=== PATIENT | female | born 1945 | race Caucasian/White ===

== ENCOUNTER → 2017-11-12 08:48 | Outpatient (CLI) | payer MEDICARE, OTHER, SELFPAY ==
[2017-11-12 10:32] LABS: Absolute Lymphocyte Count 1.52 X10^3/ul (0.83-4.51); Absolute Neutrophil Count 3.1 X10^3/uL (2.0-7.7); Basophil# 0.05 X10^3/uL; Basophil% 0.9 % (0-1); Eosinophil# 0.22 X10^3/uL; Eosinophils% 4.1 % (0-5); Hematocrit 39.1 % (37-47); Hemoglobin 12.8 g/dl (12.0-15.0); Lymphocyte # 1.52 X10^3/ul (4.0); Lymphocyte % 28.6 % (19-41); Mean Corp Hgb Conc 32.7 g/gl (32-36); Mean Corpuscular Hgb 29.4 pg (27.0-32.0); Mean Corpuscular Volume 89.7 fL (81-99); Mean Platelet Vol. 10.1 fl (6.2-12.0); Monocyte# 0.44 X10^3/uL; Monocyte% 8.3 % (0-10); Neutrophil # 3.08 X10^3/uL (2.7-7.7); Neutrophil % 57.9 % (47-70); Platelet Count 183 K/mm3 (150-450); RBC Distribution Width SD 45.9 fl (35.1-43.9); Red Blood Count 4.36 M/mm3 (4.2-5.4); White Blood Count 5.3 K/mm3 (4.4-11.0)
[2017-11-12 10:54] LABS: POSITIVE COUNT NO; POSITIVE DIFFERENTIAL NO; POSITIVE MORPHOLOGY NO
[2017-11-12 11:01] LABS: Anion Gap 7 (5-15); BUN 17 mg/dL (7-18); BUN/Creat Ratio 13.6 RATIO (10-20); Calcium,Total 8.6 mg/dL (8.5-10.1); Chloride 109 mmol/L (98-107); Creatinine, Serum 1.25 mg/dL (0.55-1.02); EST Glomerular Filtration Rate 45 mL/min (>60); Est Glom Filt Rate - Afr Amer 54 mL/min (>60); Glucose 118 mg/dL (74-106); Potassium 3.9 mmol/L (3.5-5.1); Sodium Level 142 mmol/L (136-145); Thyroid Stim Hormone (TSH) 5.02 uIU/mL (0.358-3.74)
== END ==
PROVIDERS: Family Provider Family Medicine; PCP Family Medicine; Visit Provider Family Medicine
DX: R53.83 Other fatigue (principal)
CPT/HCPCS: 36415; 80048; 84443; 85025

== ENCOUNTER → 2017-12-30 08:52 | Outpatient (CLI) | payer MEDICARE, OTHER, SELFPAY ==
[2017-12-30 10:28] LABS: Free T3 2.1 pg/mL (2.18-3.98); T4 Free Direct 0.95 ng/dL (0.76-1.46); Thyroid Stim Hormone (TSH) 3.39 uIU/mL (0.358-3.74)
== END ==
PROVIDERS: Family Provider Family Medicine; PCP Family Medicine; Visit Provider Family Medicine
DX: E03.9 Hypothyroidism, unspecified (principal)
CPT/HCPCS: 36415; 84439; 84443; 84481

== ENCOUNTER → 2018-06-02 09:10 | Outpatient (CLI) | payer BC, SELFPAY ==
[2018-06-02 12:22] LABS: Anion Gap 7 (5-15); BUN 22 mg/dL (7-18); BUN/Creat Ratio 19.3 RATIO (10-20); Calcium,Total 8.7 mg/dL (8.5-10.1); Chloride 107 mmol/L (98-107); Cholesterol 207 mg/dL (200); Creatinine, Serum 1.14 mg/dL (0.55-1.02); EST Glomerular Filtration Rate 50 mL/min (>60); Est Glom Filt Rate - Afr Amer 60 mL/min (>60); Free T3 2.7 pg/mL (2.18-3.98); Glucose 109 mg/dL (74-106); High Density Lipoprotein 38 mg/dL; Potassium 4.4 mmol/L (3.5-5.1); Sodium Level 141 mmol/L (136-145); T4 Total, Thyroxin 8.5 ug/dL (4.8-13.9); Thyroid Stim Hormone (TSH) 5.27 uIU/mL (0.358-3.74); Triglycerides 229 mg/dL; Very Low Density Lipoprotein 46 mg/dL (5-40)
== END ==
PROVIDERS: Family Provider Family Medicine; PCP Family Medicine; Visit Provider Family Medicine
DX: I10 Essential (primary) hypertension (principal); E03.9 Hypothyroidism, unspecified
CPT/HCPCS: 36415; 80048; 80061; 84436; 84443; 84481

== ENCOUNTER → 2018-12-01 | Outpatient (CLI) | payer BC, SELFPAY ==
[2018-12-01 10:45] LABS: Anion Gap 6 (5-15); BUN 14 mg/dL (7-18); BUN/Creat Ratio 15.3 RATIO (10-20); Calcium,Total 8.8 mg/dL (8.5-10.1); Chloride 110 mmol/L (98-107); Cholesterol 193 mg/dL (200); Creatinine, Serum 0.92 mg/dL (0.55-1.02); EST Glomerular Filtration Rate 64 mL/min (>60); Est Glom Filt Rate - Afr Amer 77 mL/min (>60); Glucose 100 mg/dL (74-106); High Density Lipoprotein 42 mg/dL; Sodium Level 141 mmol/L (136-145); Thyroid Stim Hormone (TSH) 4.71 uIU/mL (0.358-3.74); Triglycerides 198 mg/dL; Very Low Density Lipoprotein 40 mg/dL (5-40)
[2018-12-01 10:50] LABS: Vitamin D,25 Hydroxy 22.8 ng/mL (29.95-100.01)
== END | disposition home or self-care (01) ==
LOC: MFPLAB 09:17
PROVIDERS: Family Provider Family Medicine; PCP Family Medicine; Referring Provider Family Medicine; Visit Provider Family Medicine
DX: I10 Essential (primary) hypertension (principal); E03.9 Hypothyroidism, unspecified; E55.9 Vitamin D deficiency, unspecified
CPT/HCPCS: 36415; 80048; 80061; 82306; 84443

== ENCOUNTER → 2019-06-12 09:10 | Outpatient (CLI) | payer BC, SELFPAY ==
[2019-06-12 10:38] LABS: Anion Gap 4 (5-15); BUN 19 mg/dL (7-18); BUN/Creat Ratio 16.1 RATIO (10-20); Calcium,Total 8.7 mg/dL (8.5-10.1); Chloride 113 mmol/L (98-107); Cholesterol 218 mg/dL (200); Creatinine, Serum 1.18 mg/dL (0.55-1.02); EST Glomerular Filtration Rate 48 mL/min (>60); Est Glom Filt Rate - Afr Amer 58 mL/min (>60); Free T3 2.2 pg/mL (2.18-3.98); Glucose 102 mg/dL (74-106); High Density Lipoprotein 38 mg/dL; Potassium 4.3 mmol/L (3.5-5.1); Sodium Level 142 mmol/L (136-145); T4 Total, Thyroxin 6.7 ug/dL (4.8-13.9); Thyroid Stim Hormone (TSH) 6.17 uIU/mL (0.358-3.74); Triglycerides 259 mg/dL; Very Low Density Lipoprotein 52 mg/dL (5-40)
== END ==
PROVIDERS: Family Provider Family Medicine; PCP Family Medicine; Visit Provider Family Medicine
DX: E03.9 Hypothyroidism, unspecified (principal); I10 Essential (primary) hypertension
CPT/HCPCS: 36415; 80048; 80061; 84436; 84443; 84481

== ENCOUNTER → 2019-12-13 08:36 | Outpatient (CLI) | payer BC, SELFPAY ==
[2019-12-13 10:38] LABS: Anion Gap 7 (5-15); BUN 27 mg/dL (7-18); BUN/Creat Ratio 20.9 RATIO (10-20); Chloride 104 mmol/L (98-107); Cholesterol 230 mg/dL (200); Creatinine, Serum 1.29 mg/dL (0.55-1.02); EST Glomerular Filtration Rate 43 mL/min (>60); Est Glom Filt Rate - Afr Amer 52 mL/min (>60); Glucose 115 mg/dL (74-106); High Density Lipoprotein 39 mg/dL; Sodium Level 139 mmol/L (136-145); T4 Total, Thyroxin 7.5 ug/dL (4.8-13.9); Triglycerides 265 mg/dL; Very Low Density Lipoprotein 53 mg/dL (5-40)
[2019-12-13 19:59] LABS: Free T3 2.4 pg/mL (2.18-3.98)
== END ==
PROVIDERS: PCP Family Medicine; Visit Provider Family Medicine
DX: E03.9 Hypothyroidism, unspecified (principal); I10 Essential (primary) hypertension
CPT/HCPCS: 36415; 80048; 80061; 84436; 84443; 84480; 84481

== ENCOUNTER → 2020-03-21 09:51 | Outpatient (CLI) | payer BC, SELFPAY ==
[2020-03-21 13:16] LABS: Anion Gap 5 (5-15); BUN 28 mg/dL (7-18); Chloride 113 mmol/L (98-107); EST Glomerular Filtration Rate 39 mL/min (>60); Est Glom Filt Rate - Afr Amer 47 mL/min (>60); Glucose 102 mg/dL (74-106); Potassium 4.7 mmol/L (3.5-5.1); Sodium Level 142 mmol/L (136-145); Thyroid Stim Hormone (TSH) 3.83 uIU/mL (0.358-3.74)
== END ==
PROVIDERS: PCP Family Medicine; Referring Provider Family Medicine; Visit Provider Family Medicine
DX: I10 Essential (primary) hypertension (principal); E03.9 Hypothyroidism, unspecified
CPT/HCPCS: 36415; 80048; 84443

== ENCOUNTER → 2020-09-26 11:02 | Outpatient (CLI) | payer BC, SELFPAY ==
[2020-09-26 12:59] LABS: Anion Gap 5 (5-15); BUN 19 mg/dL (7-18); BUN/Creat Ratio 15.1 RATIO (10-20); Chloride 109 mmol/L (98-107); Cholesterol 226 mg/dL (200); Creatinine, Serum 1.26 mg/dL (0.55-1.02); EST Glomerular Filtration Rate 44 mL/min (>60); Est Glom Filt Rate - Afr Amer 53 mL/min (>60); Free T3 2.3 pg/mL (2.18-3.98); Glucose 97 mg/dL (74-106); High Density Lipoprotein 40 mg/dL; Potassium 4.4 mmol/L (3.5-5.1); Sodium Level 138 mmol/L (136-145); T4 Free Direct 0.94 ng/dL (0.76-1.46); Thyroid Stim Hormone (TSH) 4.35 uIU/mL (0.358-3.74); Triglycerides 259 mg/dL; Very Low Density Lipoprotein 52 mg/dL (5-40)
== END ==
LOC: MFPLAB 11:03
PROVIDERS: PCP Family Medicine; Referring Provider Family Medicine; Visit Provider Family Medicine
DX: I10 Essential (primary) hypertension (principal); E03.9 Hypothyroidism, unspecified
CPT/HCPCS: 36415; 80048; 80061; 84439; 84443; 84481

== ENCOUNTER 2021-06-22 12:42 | Inpatient (IN) | payer MEDICARE, SELFPAY ==
[2021-06-22] VITALS (12 sets, daily range): BP systolic 121–138; BP diastolic 76–109; PULSE 76–98; RESP 18–31; TEMP 35.5–37; O2SAT 90–95; BMI 29.9; BMI 31.4
--- NOTE | 2021-06-22 13:02 | EKG12_ITS ---
Test Reason : FATIGUE Blood Pressure : / mmHG Vent. Rate : 095 BPM Atrial Rate : 095 BPM P-R Int : 130 ms QRS Dur : 126 ms QT Int : 400 ms P-R-T Axes : 034 -25 029 degrees QTc Int : 502 ms Normal sinus rhythm Right bundle branch block Abnormal ECG Confirmed by JENNIFER PENA, PINKY ([id number]), book or script editor HANNAH HARRISON ([id number]) on 06/24/2021 10:05:40 AM Referred By: SARAI/ANGE Confirmed By:PINKY RODRIGUEZ MD
--- NOTE | 2021-06-22 13:03 | EX.ED.DYSGE1 ---
HPI History of Present Illness Chief Complaint: Fatigue Informant: patient Narrative Narrative: 76-year-old female arriving to the emergency department via EMS after her niece found her lying in bed. The family with whom she lives with told EMS that she has basically been in her room for about the past week. The niece came into town and has not been able to get a hold of her for about 3 days. When she found her today she was lying in bed confused and had stooled herself. She notes that she has been having vomiting and diarrhea. She notes a cough that has gotten better. She took a home Covid test that was positive this morning. Patient does note that while laying in bed and vomiting she was doing some choking and wonders if she may have aspirated. [facility] Medical History Hypertension Home Medications NK 06/22/21 [History Last Taken Unknown] Allergy/AdvReac Type Severity Reaction Status Date / Time Wmykmew-EXA-PaL Reductase Allergy Pain in Verified 12/06/15 09:34 Inhibitor joints [Ugnxdgv-Jqu-Fbs Reductase Inhibitor] Social History (Updated 06/22/21 @ 13:[address] Elliot Angeles DO) Smoking Status: Never smoker substance use type: does not use ROS ROS ED Constitutional Constitutional ED: Reports fever(s); Denies chills or weight loss Eyes Eyes: Denies change in vision or diplopia ENT ENT ED: Denies ear pain, rhinorrhea or sore throat Cardiovascular Cardiovascular: Denies chest pain, orthopnea, palpitations or racing heartbeat Respiratory/Chest Respiratory/Chest: Reports cough; Denies dyspnea or orthopnea Gastrointestinal Gastrointestinal: Reports diarrhea, nausea and vomiting; Denies abdominal pain Genitourinary Genitourinary ED: Denies dysuria, hematuria or urinary frequency Musculoskeletal Musculoskeletal: Reports myalgias; Denies arthralgias Integumentary Denies abscess or rash Neurologic Neurologic: Denies headache(s) or weakness Psychiatric Psychiatric: Denies anxiety, depression, suicidal ideation or suicidal thoughts Endocrine Endocrinology: Denies polydipsia, polyphagia or polyuria Allergic/Immunologic Allergic/Immunologic ED: Denies mouth swelling, tongue swelling or urticaria EXAM Physical Exam Const Vital Signs: 06/22/21 12:43 06/22/21 12:49 06/22/21 14:40 Temperature 95.9 F L 96.8 F L 97.7 F L Temperature Source Temporal Temporal Temporal Pulse Rate 98 97 96 Respiratory Rate 28 H 31 H 26 H Respiratory Effort Normal Non-Labored Respiratory Pattern Normal Blood Pressure 122/94 H 122/94 H 138/109 H Blood Pressure Mean 103 103 118 Pulse Ox 95 90 Oxygen Delivery Method Room Air Room Air Nasal Cannula Oxygen Flow Rate (L/min) 2 06/22/21 14:50 Temperature Temperature Source Pulse Rate 76 Respiratory Rate 20 H Respiratory Effort Respiratory Pattern Blood Pressure 138/109 H Blood Pressure Mean 118 Pulse Ox 93 Oxygen Delivery Method Nasal Cannula Oxygen Flow Rate (L/min) 4 Positive well nourished and well developed General Appearance ED: well developed HEENT Reports normocephalic, head/scalp atraumatic and moist mucous membranes Eyes PERRL and EOMs intact bilaterally Neck no lymphadenopathy, supple and no JVD Resp normal respiratory effort and clear to auscultation bilaterally Cardio regular rate, regular rhythm and no murmurs GI normal to inspection, nondistended, normoactive bowel sounds and non-tender Palpation: soft Back/Spine no CVA tenderness and normal ROM Extremity normal to inspection General Extremety ED: Negative for edema General Extremity: Negative for edema Neuro oriented x3 and CN's II-XII intact bilaterally Sensorium / Orientation: alert Motor Exam: strength 5/5 throughout Psych mental status grossly normal Mood & Affect: Negative for depressed or tearful Skin no rashes or lesions noted and no wounds MDM MDM MDM Narrative Medical decision making narrative: Patient was placed on oxygen 2 to saturations into the mid 80s. White count 10.6. BUN of 51 with a creatinine of 1.73. Lactic acid is elevated at 3.7. My interpretation of the chest x-ray is it is a left lower lobe infiltrate. CTA of the chest was obtained. Finest admit the patient into the hospital. Lab Data Attestation: I reviewed the patient's lab results. Labs: Laboratory Results - last 24 hr 06/22/21 06/22/21 06/22/21 12:30 12:30 13:20 WBC 10.6 RBC 5.40 Hgb 16.0 H Hct 48.8 H MCV 90.4 MCH 29.6 MCHC 32.8 RDW Std Deviation 48.6 H RDW Coeff of Kimberlee 14.6 Plt Count 278 MPV 10.9 Immature Gran % (Auto) 0.700 Neut % (Auto) 79.9 H Lymph % (Auto) 14.1 L [place] % (Auto) 4.8 Eos % (Auto) 0.2 Baso % (Auto) 0.3 Absolute Neuts (auto) 8.4 H Absolute Lymphs (auto) 1.49 Nucleated RBC % 0 PT 14.4 INR 1.2 APTT 25.0 Sodium 142 Potassium 4.0 Chloride 109 H Carbon Dioxide 21.0 Anion Gap 12 BUN 51 H Creatinine 1.73 H Estim Creat Clear Calc 29.90 Est GFR (MDRD) Af Amer 37 L Est GFR (MDRD) Non-Af 31 L BUN/Creatinine Ratio 29.5 H Glucose 186 H Lactic Acid Calcium 9.1 Total Bilirubin 1.00 AST 75 H ALT 42 Alkaline Phosphatase 112 Troponin I High Sens 22 Total Protein 8.9 H Albumin 3.0 L Globulin 5.9 H Albumin/Globulin Ratio 0.5 L Lipase 789 H 06/22/21 13:20 WBC RBC Hgb Hct MCV MCH MCHC RDW Std Deviation RDW Coeff of Kimberlee Plt Count MPV Immature Gran % (Auto) Neut % (Auto) Lymph % (Auto) [place] % (Auto) Eos % (Auto) Baso % (Auto) Absolute Neuts (auto) Absolute Lymphs (auto) Nucleated RBC % PT INR APTT Sodium Potassium Chloride Carbon Dioxide Anion Gap BUN Creatinine Estim Creat Clear Calc Est GFR (MDRD) Af Amer Est GFR (MDRD) Non-Af BUN/Creatinine Ratio Glucose Lactic Acid 3.7 H* Calcium Total Bilirubin AST ALT Alkaline Phosphatase Troponin I High Sens Total Protein Albumin Globulin Albumin/Globulin Ratio Lipase Radiography Diagnostic Testing: Clinical Impression(s) from Imaging Studies Chest X-Ray 06/22/21 13:27 IMPRESSION: 1. Shallow inspiration and crowding of bronchovascular markings. 2. Early interstitial infiltrate at the LEFT lung base. Early atypical pneumonia is a consideration. Remaining lung zones clear. 3. No congestive failure Electronically Signed: Everton Benoit MD at 14:36 EST Tel , Service support , EKG Initial EKG: Attestation: I personally reviewed and interpreted this EKG as follows: Comments: Normal sinus rhythm with a right bundle branch block and a ventricular rate of 95 bpm Discharge Plan Dx/Rx/DC Orders Clinical Impression: COVID-19, Acute hypoxemic respiratory failure due to COVID-19 Disposition Disposition: Acute Care Hospital [facility]
[2021-06-22 13:18] LABS: Absolute Lymphocyte Count 1.49 X10^3/uL (0.83-4.51); Absolute Neutrophil Count 8.4 X10^3/uL (2.0-7.7); Basophil# 0.03 X10^3/uL; Basophil% 0.3 % (0-1); Eosinophil# 0.02 X10^3/uL; Eosinophils% 0.2 % (0-5); Hematocrit 48.8 % (37-47); Lymphocyte # 1.49 X10^3/ul (0.83-4.51); Lymphocyte % 14.1 % (19-41); Mean Corp Hgb Conc 32.8 g/dL (32-36); Mean Corpuscular Hgb 29.6 pg (27.0-32.0); Mean Corpuscular Volume 90.4 fL (81-99); Mean Platelet Vol. 10.9 fl (6.2-12.0); Monocyte# 0.51 X10^3/uL; Monocyte% 4.8 % (0-10); NRBC Flagged by Analyzer 0 % (0-5); Neutrophil # 8.43 X10^3/uL (2.7-7.7); Neutrophil % 79.9 % (47-70); Platelet Count 278 K/mm3 (150-450); RBC Distribution Width CV 14.6 % (11.6-14.6); RBC Distribution Width SD 48.6 fl (35.1-43.9); White Blood Count 10.6 K/mm3 (4.4-11.0)
[2021-06-22] MEDS: 0.9% Normal Saline 1,000 ML 1000 ML IV (13:27)
--- NOTE | 2021-06-22 13:27 | RAD_ITS ---
INDICATION: covid 19 EXAMINATION/TECHNIQUE: X-RAY - XR Chest 1 View COMPARISON: 11/06/2011 FINDINGS: LIFE-SUPPORT AND LINES: 1. None. 2. No pneumothorax or HEART AND VESSELS: Cardiac silhouette is upper limit of normal, tortuous aorta is noted. No evidence of congestive failure. LUNGS AND PLEURAL SPACES: Shallow aspiration basilar atelectasis however focal area of early infiltrate at the LEFT lung base. No consolidation, no effusion. No pulmonary mass is noted. MEDIASTINUM AND HILAR REGIONS: No masses adenopathy noted. No areas of calcification. Visualized upper airway is normal in position. BONY ELEMENTS: Postop change of prior LEFT shoulder arthroplasty, healed LEFT rib fractures are noted. RAD/Chest 1 View (Portable) IMPRESSION: 1. Shallow inspiration and crowding of bronchovascular markings. 2. Early interstitial infiltrate at the LEFT lung base. Early atypical pneumonia is a consideration. Remaining lung zones clear. 3. No congestive failure Electronically Signed: Everton Benoit MD at 14:36 EST Tel , Service support ,
[2021-06-22 13:42] LABS: ALB/GLOB Ratio 0.5 RATIO (0.9-2.4); AST(SGOT) 75 U/L (15-37); Alanine Aminotransfer ALT/SGPT 42 U/L (13-56); Alkaline Phosphatase 112 U/L (45-117); Anion Gap 12 (5-15); BUN 51 mg/dL (7-18); BUN/Creat Ratio 29.5 RATIO (10-20); Calcium,Total 9.1 mg/dL (8.5-10.1); Chloride 109 mmol/L (98-107); Creatinine, Serum 1.73 mg/dL (0.55-1.02); EST Glomerular Filtration Rate 31 mL/min (>60); Est Glom Filt Rate - Afr Amer 37 mL/min (>60); Globulin 5.9 g/dL (2.2-4.2); Glucose 186 mg/dL (74-106); Lipase 789 U/L (73-393); Protein, Total 8.9 g/dL (6.4-8.2); Sodium Level 142 mmol/L (136-145); Troponin-I HS 22 pg/mL (3.0-54.0)
[2021-06-22 13:57] LABS: International Normalized Ratio 1.2; Prothrombin Time (Protime)PT. 14.4 SECONDS (11.7-14.9)
[2021-06-22 14:00] LABS: Lactic Acid 3.7 mmol/L (0.4-1.9)
--- NOTE | 2021-06-22 14:40 | CT_ITS ---
STUDY: CTA CHEST REASON FOR EXAM: Female, 76 years old. Covid 19 hypoxia RADIATION DOSAGE (If Supplied By Facility): CTDIvol = ( 8.43 ) mGy, DLP = ( 392.61 ) mGycm TECHNIQUE: The examination was performed with the intravenous administration of IV 100mL Isovue-370. Post-processing of the angiographic images was performed, with multiplanar reformation and 3D reconstruction. Individualized dose optimization techniques were used for this CT. COMPARISON: None. FINDINGS: Lines and tubes: 1. No life-support noted. CTA: PULMONARY ARTERIES: There is normal configuration and contrast opacification of pulmonary outflow tract, main pulmonary arteries, segmental and intersegmental pulmonary arteries bilaterally without evidence of intraluminal filling defects. AORTIC ARCH: The aortic arch and descending aorta have normal configuration. The ascending aorta measures approximately 4.6 cm in maximal transverse dimension no evidence of dissection. HEART: Cardiac contour is normal. No evidence pericardial effusion. CT CHEST: LUNGS: [Extensive diffuse bilateral interstitial and groundglass infiltrate/pneumonia greatest at the lung bases. No effusion.. PLEURAL SPACES: Unremarkable, no effusion or pneumothorax.. MEDIASTINUM AND LYMPH NODES: Unremarkable. No significant adenopathy. BONES: Unremarkable ABDOMEN: The gallbladder is distended, no radiodense calcifications noted. Other: None IMPRESSIONS: 1. No CTA evidence of pulmonary embolism. 2. Mild aneurysmal dilatation of the ascending aorta with maximal transverse dimension of 4.6 cm. No dissection or filling defects noted. Normal appearance of the origin the great vessels. 3. Normal CT appearance of the heart and pericardium. 4. Extensive diffuse multi lobar interstitial and groundglass infiltrate/atypical pneumonia. Electronically Signed: Everton Benoit MD at 15:57 EST Tel , Service support , CT/CTA Chest W/WO Contrast
--- NOTE | 2021-06-22 15:53 | HP.PCM.HOS_ITS ---
HPI - General HPI Narrative JENI AVALOS, is a 76 F who presents with fatigue. Patient lives at home with family patient sick for about a week and confined to her room for the well. The niece came in town and not been able get a hold about 3 days. They went to her room and patient was confused and covered in feces. Was asked to the patient why no one saw to get her on patient was confirmed to be positive for COVID-19 and sent emergency room. Patient wasn't confirmed COVID-19 positive patient increasing oxygen requirements and was up to 6 L and satting patient had CT angiogram of the chest that showed diffuse bilateral groundglass opacities. Is concerned the patient may have a developing pneumonia as patient was ordered [facility]. [facility] Medical History Hypertension Home Medications NK 06/22/21 [History Last Taken Unknown] Allergy/AdvReac Type Severity Reaction Status Date / Time Hebqoed-ZZV-AnL Reductase Allergy Pain in Verified 12/06/15 09:34 Inhibitor joints [Nhlnewn-Bor-Njd Reductase Inhibitor] Social History Smoking Status: Never smoker substance use type: does not use ROS ROS Narrative Weak, fatigue. All review of systems were negative except as mentioned above in the history of present illness and the other review of systems. Vital Signs Vital Signs Vital Signs: 06/22/21 12:43 06/22/21 12:49 06/22/21 14:40 Temperature 35.5 C L 36.0 C L 36.5 C L Temperature Source Temporal Temporal Temporal Pulse Rate 98 97 96 Respiratory Rate 28 H 31 H 26 H Respiratory Effort Normal Non-Labored Respiratory Pattern Normal Blood Pressure 122/94 H 122/94 H 138/109 H Blood Pressure Mean 103 103 118 Pulse Ox 95 90 Oxygen Delivery Method Room Air Room Air Nasal Cannula Oxygen Flow Rate (L/min) 2 06/22/21 14:50 06/22/21 15:47 Temperature 36.1 C L Temperature Source Temporal Pulse Rate 76 93 Respiratory Rate 20 H 20 H Respiratory Effort Respiratory Pattern Blood Pressure 138/109 H 124/89 H Blood Pressure Mean 118 100 Pulse Ox 93 90 Oxygen Delivery Method Nasal Cannula Nasal Cannula Oxygen Flow Rate (L/min) 4 6 Weight Weight: 67.4 kg Body Mass Index (BMI) 29.9 Physical Exam Const Constitutional Narrative: Appears older than stated age. Patient was having a lot of discomfort when there performing a straight catheterization. HEENT normocephalic Resp normal respiratory effort Resp Narrative: Coarse breath sounds bilaterally Cardio regular rate, regular rhythm, S1 normal heart sound and S2 normal heart sound GI normal to inspection, nondistended, normoactive bowel sounds, soft to palpation, non-tender and non-distended Extremity normal to inspection Skin no rashes or lesions noted and no wounds Neuro oriented x3 Sensorium / Orientation: awake and alert Results Lab / Micro Data Attestation: I reviewed the patient's lab results. Result Diagrams: 06/22/21 12:30 06/22/21 12:30 Labs: Laboratory Results - last 24 hr 06/22/21 12:30: WBC 10.6, RBC 5.40, Hgb 16.0 H, Hct 48.8 H, MCV 90.4, MCH 29.6, MCHC 32.8, RDW Std Deviation 48.6 H, RDW Coeff of Kimberlee 14.6, Plt Count 278, MPV 10.9, Immature Gran % (Auto) 0.700, Neut % (Auto) 79.9 H, Lymph % (Auto) 14.1 L, Elliott % (Auto) 4.8, Eos % (Auto) 0.2, Baso % (Auto) 0.3, Absolute Neuts (auto) 8.4 H, Absolute Lymphs (auto) 1.49, Nucleated RBC % 0 06/22/21 12:30: Sodium 142, Potassium 4.0, Chloride 109 H, Carbon Dioxide 21.0, Anion Gap 12, BUN 51 H, Creatinine 1.73 H, Estim Creat Clear Calc 29.90, Est GFR (MDRD) Af Amer 37 L, Est GFR (MDRD) Non-Af 31 L, BUN/Creatinine Ratio 29.5 H, Glucose 186 H, Calcium 9.1, Total Bilirubin 1.00, AST 75 H, ALT 42, Alkaline Phosphatase 112, Troponin I High Sens 22, Total Protein 8.9 H, Albumin 3.0 L, Globulin 5.9 H, Albumin/Globulin Ratio 0.5 L, Lipase 789 H 06/22/21 13:20: PT 14.4, INR 1.2, APTT 25.0 06/22/21 13:20: Lactic Acid 3.7 H* Micro: Microbiology 06/22/21 13:18 Nasal Secretion SARS-CoV-2 Antigen (Rapid) - Final SARS-CoV-2 (COVID 19) Radiology Impression Chest X-Ray 06/22/21 13:27 IMPRESSION: 1. Shallow inspiration and crowding of bronchovascular markings. 2. Early interstitial infiltrate at the LEFT lung base. Early atypical pneumonia is a consideration. Remaining lung zones clear. 3. No congestive failure Electronically Signed: Everton Benoit MD at 14:36 EST Tel , Service support , Assessment & Plan Assessment/Plan (1) Acute hypoxemic respiratory failure due to COVID-19: (2) COVID-19: (3) HARLEY (acute kidney injury): PLAN: 1. Acute hypoxic respiratory failure Secondary to COVID-19 Patient already on 6 L and has marginal pulse ox Wean if tolerated but very concerning patient may continue to deteriorate. CAT scan consistent with COVID-19 pneumonitis. Ordered Unasyn in the emergency room but would not continue as this appears more consistent with COVID-19. 2. Acute COVID-19 pneumonia Onset was June 15, patient will need to quarantine through July 05 Dexamethasone. Not a candidate for remdesivir given her acute kidney injury No indication for baricitinib at this point time but she could deteriorate or that may an option Patient is unvaccinated. Stated that she did not believe in it. Asked if she believes in vaccines now and she responds yes. It was explained to her given her unvaccinated state that she could potentially deteriorate despite treatments. 3. Acute kidney injury May be a component of prerenal as patient was basically confined to her room for about the past week Hold off on IV fluids given her respiratory status at this time. No need for renal replacement therapy 4. VTE prophylaxis: High risk. Enoxaparin. 5. CODE STATUS: Addressed with patient. Asked patient if she would want to be intubated if it was life or . She was unsure at first but later towards either or intubation what she chooses. Patient would choose intubation. Therefore she is full CODE STATUS. I did inform her that there is no imminent danger of intubation at this time but that certainly could, and arise if her respiratory status continues to decline. Charges/Coding Visit Charges Inpatient E&M: 24863 Init Hosp L3
[2021-06-22 15:59] LABS: Bacteria 0 SEEN /hpf (None Seen); Mucous, Urine 0 SEEN /hpf (<or=2+); Red Blood Cells-Urine 0 SEEN /hpf (0-5)
[2021-06-22 16:02] LABS: Color, Urine Yellow (Yellow); Glucose, Dipstick Normal (Normal); Ketone-Dipstick 5 mg/dl (Negative); Leukocyte Esterase-Dipstick Negative /ul (Negative); Nitrite-Dipstick Negative (Negative); Occult Blood-Urine 50 /ul (Negative); Protein-Dipstick 100 mg/dl (Negative); Specific Gravity, Urine 1.015 (1.002-1.030); Urine Bilirubin Dipstick Negative (Negative); Urine Clarity Clear (Clear); Urine Urobilinogen Normal (Normal); Urine pH 6.5 (5.0 - 8.0)
[2021-06-22 16:14] LABS: Squamous Epithelial Cells - UA 0-5 SEEN /hpf (5-10); White Blood Cells 0-5 SEEN /hpf (0-5)
--- NOTE | 2021-06-22 17:21 | PCS.PANDOC ---
PANDEMIC DOCUMENTATION INITIATED: Date: 02/10/2021 Time: 190
[2021-06-22 17:30] LABS: Reflex Lactate? Y
[2021-06-22] MEDS: 0.9% Saline Lock 10 ML Syringe IV (18:42)
[2021-06-22] MEDS: dexAMETHasone 10 MG/ML Vial 6 MG IV (18:42)
[2021-06-22] MEDS: Menthol/Lanolin/Calamine/Znox 113 GM Tube 1 APPLIC TOPICAL (20:39)
[2021-06-22] MEDS: Nystatin Ointment 1 APPLIC TOPICAL (20:39)
[2021-06-23] VITALS (13 sets, daily range): BP systolic 126–138; BP diastolic 70–87; PULSE 76–86; RESP 20–24; TEMP 36.1–37.2; O2SAT 83–97
[2021-06-23] MEDS: Menthol/Lanolin/Calamine/Znox 113 GM Tube 1 APPLIC TOPICAL ×3 (03:12→23:04)
[2021-06-23 06:55] LABS: Absolute Lymphocyte Count 0.94 X10^3/uL (0.83-4.51); Absolute Neutrophil Count 7.1 X10^3/uL (2.0-7.7); Basophil# 0.01 X10^3/uL; Basophil% 0.1 % (0-1); Hematocrit 44.1 % (37-47); Hemoglobin 14.3 g/dL (12.0-15.0); Lymphocyte # 0.94 X10^3/ul (0.83-4.51); Lymphocyte % 11.3 % (19-41); Mean Corp Hgb Conc 32.4 g/dL (32-36); Mean Corpuscular Volume 89.5 fL (81-99); Mean Platelet Vol. 10.4 fl (6.2-12.0); Monocyte# 0.27 X10^3/uL; Monocyte% 3.2 % (0-10); NRBC Flagged by Analyzer 0 % (0-5); Neutrophil # 7.05 X10^3/uL (2.7-7.7); Neutrophil % 84.6 % (47-70); Platelet Count 226 K/mm3 (150-450); RBC Distribution Width CV 14.6 % (11.6-14.6); RBC Distribution Width SD 48.2 fl (35.1-43.9); Red Blood Count 4.93 M/mm3 (4.2-5.4); White Blood Count 8.3 K/mm3 (4.4-11.0)
[2021-06-23 07:20] LABS: ALB/GLOB Ratio 0.5 RATIO (0.9-2.4); AST(SGOT) 45 U/L (15-37); Alanine Aminotransfer ALT/SGPT 30 U/L (13-56); Albumin, Serum 2.5 g/dL (3.2-5.0); Alkaline Phosphatase 94 U/L (45-117); Anion Gap 8 (5-15); BUN 41 mg/dL (7-18); BUN/Creat Ratio 31.1 RATIO (10-20); Calcium,Total 8.7 mg/dL (8.5-10.1); Chloride 112 mmol/L (98-107); Creatinine, Serum 1.32 mg/dL (0.55-1.02); EST Glomerular Filtration Rate 42 mL/min (>60); Est Glom Filt Rate - Afr Amer 50 mL/min (>60); Estimated Creatinine Clearance 40.98 ml/min; Globulin 5.2 g/dL (2.2-4.2); Glucose 137 mg/dL (74-106); Potassium 4.3 mmol/L (3.5-5.1); Protein, Total 7.7 g/dL (6.4-8.2); Sodium Level 144 mmol/L (136-145)
[2021-06-23] MEDS: Enoxaparin 30 MG/0.3 ML Syringe SC (09:40)
[2021-06-23] MEDS: dexAMETHasone 10 MG/ML Vial 6 MG IV (09:41)
[2021-06-23] MEDS: Nystatin Ointment 1 APPLIC TOPICAL ×2 (09:41→23:03)
--- NOTE | 2021-06-23 10:20 | CASEMGMT ---
SONIA MAYER Assessment: Face to Face with pt for initial transition planning/care coordination assessment. SONIA MAYER introduced self and role at [facility], pt voices understanding and consents to assessment. Pt is A/O x4 and answers all questions appropriately at this time. Pt lying in bed with O2 on in no distress. Care providers, pharmacy, and demographics verified/updated. Admitting Dx: COVID 19 PCP:Mary Ellen Specialists: Pt denies. [facility]erred [facility]acy: [facility] Insurance: Erica PALMA Prescription Benefit: yes LW/HPOA: Pt denies having a LW/DPOA and denies need for info regarding AD. LNOK: Nia Meza, niece; Heri Lemon, son Living Arrangements: Pt lives with treat grandson, his and their 3 children. Pt reports she was I in ADL's prior to hospitalization and denies concerns at home. She states her children are obnoxious. Transportation: Pt drives self and denies concerns with transportation. DME/HHC/SNF: Pt has a chair lift from the main level to the upstairs, walk in shower and a cane and walker that she does not use. Pt denies hx of HHC or SNF stays. Pt states she was tested at [facility]. She states she is not aware of any family members who have COVID. She can quarantine from them using separate bedrooms and bathrooms. Pt states she does have family (her niece, not who she lives with) who can provide her with groceries and supplies while in quarantine. Provided pt with a local in network list of DME companies should she need O2 upon dc, pt denies preference. Pt states no concerns with going home at time of dc. Pt states no further concerns/needs. CM to follow. Advised pt to ask CM if any further question/concerns/needs arise, voices understanding. Pt Goal: Home Plan: Home
--- NOTE | 2021-06-23 15:47 | NURSING ---
PT HAS VISITOR IN ROOM. NOTED SINCE VISITOR IS HERE PT HAS HAD TO HAVE OXYGEN INCREASE DUE TO UNABLE TO MAINTAIN OXYGEN STATUS WITH CONVERSATION. SHE WAS PLACED ON 15 L HIGH RASHAD AND NOW IS ON AIRVO.
--- NOTE | 2021-06-23 19:29 | PCM.PN.HOSP ---
Subjective Subjective Patient was seen and examined today, she is on high flow oxygen at this time, I asked her whether she would want to be placed on a ventilator if needed, she answered yes. Patient denies any shortness of breath at rest, she denies any fevers or chills. Objective Data Objective Data Vital Signs: Vital Signs Temp Pulse Resp BP Pulse Ox 98.6 F 83 20 H 134/70 H 97 06/23/21 15:20 06/23/21 15:20 06/23/21 15:22 06/23/21 15:20 06/23/21 15:20 Oxygen Flow Rate (L/min) 15 Oxygen Delivery Method High Flow Weight: 70.488 kg Body Mass Index (BMI) 31.4 Intake & Output: Intake and Output for Last 24 Hours 06/21/21 06/22/21 06/23/21 23:59 23:59 23:59 Intake Total 1262 / 1262 950 / 950 Balance 1262 / 1262 950 / 950 Lab / Micro Data Result Diagrams: 06/23/21 06:16 06/23/21 06:14 Labs: Laboratory Results - last 24 hr 06/23/21 06:14: Sodium 144, Potassium 4.3, Chloride 112 H, Carbon Dioxide 24.0, Anion Gap 8, BUN 41 H, Creatinine 1.32 H, Estim Creat Clear Calc 40.98, Est GFR (MDRD) Af Amer 50 L, Est GFR (MDRD) Non-Af 42 L, BUN/Creatinine Ratio 31.1 H, Glucose 137 H, Calcium 8.7, Total Bilirubin 0.70, AST 45 H, ALT 30, Alkaline Phosphatase 94, Total Protein 7.7, Albumin 2.5 L, Globulin 5.2 H, Albumin/Globulin Ratio 0.5 L 06/23/21 06:16: WBC 8.3, RBC 4.93, Hgb 14.3, Hct 44.1, MCV 89.5, MCH 29.0, MCHC 32.4, RDW Std Deviation 48.2 H, RDW Coeff of Kimberlee 14.6, Plt Count 226, MPV 10.4, Immature Gran % (Auto) 0.800, Neut % (Auto) 84.6 H, Lymph % (Auto) 11.3 L, [place] % (Auto) 3.2, Eos % (Auto) 0.0, Baso % (Auto) 0.1, Absolute Neuts (auto) 7.1, Absolute Lymphs (auto) 0.94, Nucleated RBC % 0 Micro: Microbiology 06/22/21 13:18 Nasal Secretion SARS-CoV-2 Antigen (Rapid) - Final SARS-CoV-2 (COVID 19) Physical Exam Const alert, oriented x3, no apparent distress and healthy appearing General Appearance: cooperative, well kempt and well developed Orientation / Consciousness: awake, oriented to person, oriented to place and oriented to time HEENT normocephalic, head/scalp atraumatic and moist oral mucous membranes Head and Scalp: normocephalic Eyes PERRL, EOMs intact bilaterally and conjunctivae normal Neck nuchal rigidity, supple, no JVD, thyroid normal and no carotid bruits General: trachea midline Resp normal respiratory effort, no retractions, no use of accessory muscles and clear to auscultation bilaterally Auscultation: Negative for rales, rhonchi or wheezes Cardio regular rate, regular rhythm, S1 normal heart sound, S2 normal heart sound, no murmurs, no rub and no gallops GI normal to inspection, nondistended, normoactive bowel sounds, soft to palpation, non-tender and non-distended Extremity no clubbing, cyanosis or edema Skin no rashes or lesions noted, skin turgor normal and no jaundice General Skin Exam: no breakdown Neuro oriented x3, CN's II-XII intact bilaterally, no focal motor deficits and no sensory deficits noted Sensorium / Orientation: awake and alert Speech: speech normal Psych thought process normal and affect normal Assessment & Plan Assessment/Plan (1) COVID-19: PLAN: 1. COVID-19 pneumonia-patient is currently on dexamethasone, patient's GFR at this time is 42, I believe she would be a candidate for remdesivir, nursing will discuss this with the patient and I will order the remdesivir, if the patient declines remdesivir, it will be discontinued by nursing. Labs will be monitored. #2 acute hypoxic respiratory failure-pulse ox will be monitored #3 acute kidney injury-patient appears to have a backdrop of chronic kidney disease stage IIIb #4 acute debility secondary to COVID-19 pneumonia Charges/Coding Visit Charges Inpatient E&M: 36235 Subs Hosp L2
[2021-06-23] MEDS: 0.9% Saline Lock 10 ML Syringe IV (23:04)
[2021-06-24] VITALS (22 sets, daily range): BP systolic 108–155; BP diastolic 68–110; PULSE 68–84; RESP 11–29; TEMP 36.2–36.4; O2SAT 73–100
[2021-06-24] MEDS: Menthol/Lanolin/Calamine/Znox 113 GM Tube 1 APPLIC TOPICAL ×2 (03:49→14:06)
[2021-06-24] MEDS: dexAMETHasone 10 MG/ML Vial 6 MG IV (09:30)
[2021-06-24] MEDS: Nystatin Ointment 1 APPLIC TOPICAL (09:31)
[2021-06-24] MEDS: 0.9% Saline Lock 10 ML Syringe IV (09:31)
[2021-06-24] MEDS: Enoxaparin 30 MG/0.3 ML Syringe SC (09:31)
[2021-06-24 10:20] LABS: Hematocrit 40.5 % (37-47); Hemoglobin 14.2 g/dL (12.0-15.0); Mean Corp Hgb Conc 35.1 g/dL (32-36); Mean Corpuscular Hgb 29.9 pg (27.0-32.0); Mean Corpuscular Volume 85.3 fL (81-99); Mean Platelet Vol. 10.5 fl (6.2-12.0); Platelet Count 231 K/mm3 (150-450); RBC Distribution Width CV 14.1 % (11.6-14.6); RBC Distribution Width SD 43.9 fl (35.1-43.9); Red Blood Count 4.75 M/mm3 (4.2-5.4); White Blood Count 14.5 K/mm3 (4.4-11.0)
[2021-06-24 10:53] LABS: ALB/GLOB Ratio 0.5 RATIO (0.9-2.4); AST(SGOT) 54 U/L (15-37); Alanine Aminotransfer ALT/SGPT 32 U/L (13-56); Albumin, Serum 2.4 g/dL (3.2-5.0); Alkaline Phosphatase 99 U/L (45-117); Anion Gap 13 (5-15); BUN 44 mg/dL (7-18); BUN/Creat Ratio 40.4 RATIO (10-20); Calcium,Total 8.7 mg/dL (8.5-10.1); Chloride 112 mmol/L (98-107); Creatinine, Serum 1.09 mg/dL (0.55-1.02); EST Glomerular Filtration Rate 52 mL/min (>60); Est Glom Filt Rate - Afr Amer 63 mL/min (>60); Estimated Creatinine Clearance 49.62 ml/min; Globulin 4.6 g/dL (2.2-4.2); Glucose 122 mg/dL (74-106); Potassium 4.5 mmol/L (3.5-5.1); Sodium Level 145 mmol/L (136-145)
--- NOTE | 2021-06-24 14:23 | NURSING ---
assisted pt with calling her son migdalia
--- NOTE | 2021-06-24 16:38 | NURSING ---
called report to icu pt transferred to bed [address] penaloza talked with son before transfer
--- NOTE | 2021-06-24 17:33 | PN.HOSP_ITS ---
Subjective Subjective Patient was seen and examined today, she appeared confused at times, she required 100% oxygen to maintain her pulse ox initially today but then this afternoon, she was not able to maintain her oxygen sat above 80% on 100%. At that time, I contacted her son for direction concerning her CODE STATUS, her son was not able at this time to decide whether to make her a DNR and so, it was decided the patient would be transferred to ICU for close observation and possible intubation if necessary. Son was aware of this, he was making arrangements to come up here from [place] to see her. I tried to emphasize to her son that if the patient wild up on a ventilator, the prognosis would be very grim and that it could mean that she would be on the ventilator for protracted length of time with possible permanent debility if she survived. Objective Data Objective Data Vital Signs: Vital Signs Temp Pulse Resp BP Pulse Ox 97.1 F L 80 18 136/92 H 83 06/24/21 13:56 06/24/21 17:31 06/24/21 13:56 06/24/21 13:56 06/24/21 16:15 Oxygen Flow Rate (L/min) 60 Oxygen Delivery Method Airvo Weight: 70.488 kg Body Mass Index (BMI) 31.4 Intake & Output: Intake and Output for Last 24 Hours 06/22/21 06/23/21 06/24/21 23:59 23:59 23:59 Intake Total 1262 / 1262 950 / 950 300 / 300 Output Total 500 / 500 Balance 1262 / 1262 950 / 950 -200 / -200 Lab / Micro Data Result Diagrams: 06/24/21 10:00 06/24/21 10:00 Labs: Laboratory Results - last 24 hr 06/24/21 10:00: WBC 14.5 H, RBC 4.75, Hgb 14.2, Hct 40.5, MCV 85.3, MCH 29.9, MCHC 35.1 D, RDW Std Deviation 43.9, RDW Coeff of Kimberlee 14.1, Plt Count 231, MPV 10.5 06/24/21 10:00: Sodium 145, Potassium 4.5, Chloride 112 H, Carbon Dioxide 20.0 L , Anion Gap 13, BUN 44 H, Creatinine 1.09 H, Estim Creat Clear Calc 49.62, Est GFR (MDRD) Af Amer 63, Est GFR (MDRD) Non-Af 52 L, BUN/Creatinine Ratio 40.4 H, Glucose 122 H, Calcium 8.7, Total Bilirubin 0.60, AST 54 H, ALT 32, Alkaline Phosphatase 99, Total Protein 7.0, Albumin 2.4 L, Globulin 4.6 H, Albumin/Globulin Ratio 0.5 L Micro: Microbiology 06/22/21 13:18 Nasal Secretion SARS-CoV-2 Antigen (Rapid) - Final SARS-CoV-2 (COVID 19) Physical Exam Const alert Constitutional Narrative: Patient appears older than her stated age General Appearance: cooperative, well kempt and well developed Orientation / Consciousness: awake, oriented to person, oriented to place and oriented to time HEENT normocephalic and head/scalp atraumatic Head and Scalp: normocephalic Eyes PERRL, EOMs intact bilaterally and conjunctivae normal Neck nuchal rigidity, supple, no JVD and thyroid normal General: trachea midline Resp clear to auscultation bilaterally Resp Narrative: Patient appeared to have rapid respirations, she appeared lethargic, respirations at times were shallow Auscultation: Negative for rales, rhonchi or wheezes Cardio regular rate, regular rhythm, S1 normal heart sound, S2 normal heart sound, no murmurs, no rub and no gallops GI normal to inspection, nondistended, normoactive bowel sounds, soft to palpation, non-tender and non-distended Extremity normal to inspection and no clubbing, cyanosis or edema Skin no rashes or lesions noted General Skin Exam: no breakdown Neuro CN's II-XII intact bilaterally Neuro Narrative: Patient appears to have mild confusion at times Sensorium / Orientation: awake Psych thought process normal Psych Narrative: Patient has mild confusion at times Assessment & Plan Assessment/Plan (1) Acute hypoxemic respiratory failure due to COVID-19: (2) COVID-19: PLAN: 1. COVID-19 pneumonia-patient is currently on dexamethasone and remdesivir, at this time the patient will be moved to ICU for close observation, she will need to be on BiPAP at this time, I talked to the patient's niece who states that she is the patient's POA-we have no paperwork showing that however, the niece is aware that we do not have this paperwork, I did talk with the patient's son extensively by phone and he is supposed to be driving up from [place]. As it stands right now, patient will be a full code and will be intubated if necessary. #2 acute hypoxic respiratory failure-pulse ox will be monitored, patient may need to be intubated if she fails on BiPAP #3 acute kidney injury-patient appears to have a backdrop of chronic kidney disease stage IIIb-labs will be monitored #4 acute debility secondary to COVID-19 pneumonia-PT and OT will see the patient #5 periods of mild metabolic encephalopathy secondary to respiratory failure- this will be monitored, patient at this time appears to be able to make her own decisions according to nursing. Charges/Coding Visit Charges Inpatient E&M: 49961 Subs Hosp L2
[2021-06-24] MEDS: 0.9% Normal Saline 1,000 ML 75 ML IV (18:13)
[2021-06-25] VITALS (34 sets, daily range): BP systolic 106–162; BP diastolic 74–102; PULSE 64–99; RESP 14–43; TEMP 36.1–37.8; O2SAT 88–97
[2021-06-25] MEDS: Menthol/Lanolin/Calamine/Znox 113 GM Tube 1 APPLIC TOPICAL ×4 (00:27→21:36)
[2021-06-25] MEDS: Nystatin Ointment 1 APPLIC TOPICAL ×3 (00:27→21:36)
[2021-06-25 03:50] LABS: ALB/GLOB Ratio 0.5 RATIO (0.9-2.4); AST(SGOT) 47 U/L (15-37); Absolute Lymphocyte Count 1.08 X10^3/uL (0.83-4.51); Absolute Neutrophil Count 11.1 X10^3/uL (2.0-7.7); Alanine Aminotransfer ALT/SGPT 32 U/L (13-56); Albumin, Serum 2.5 g/dL (3.2-5.0); Alkaline Phosphatase 92 U/L (45-117); Anion Gap 7 (5-15); BUN 40 mg/dL (7-18); BUN/Creat Ratio 39.2 RATIO (10-20); Basophil# 0.01 X10^3/uL; Basophil% 0.1 % (0-1); Calcium,Total 8.2 mg/dL (8.5-10.1); Chloride 113 mmol/L (98-107); Creatinine, Serum 1.02 mg/dL (0.55-1.02); EST Glomerular Filtration Rate 56 mL/min (>60); Est Glom Filt Rate - Afr Amer 68 mL/min (>60); Estimated Creatinine Clearance 53.03 ml/min; Globulin 4.8 g/dL (2.2-4.2); Glucose 98 mg/dL (74-106); Hematocrit 42.4 % (37-47); Hemoglobin 13.9 g/dL (12.0-15.0); Lymphocyte # 1.08 X10^3/ul (0.83-4.51); Lymphocyte % 8.3 % (19-41); Mean Corp Hgb Conc 32.8 g/dL (32-36); Mean Corpuscular Hgb 29.1 pg (27.0-32.0); Mean Corpuscular Volume 88.9 fL (81-99); Mean Platelet Vol. 10.2 fl (6.2-12.0); Monocyte# 0.72 X10^3/uL; Monocyte% 5.5 % (0-10); NRBC Flagged by Analyzer 0 % (0-5); Platelet Count 268 K/mm3 (150-450); Potassium 4.1 mmol/L (3.5-5.1); Protein, Total 7.3 g/dL (6.4-8.2); RBC Distribution Width CV 14.2 % (11.6-14.6); Red Blood Count 4.77 M/mm3 (4.2-5.4); Sodium Level 145 mmol/L (136-145); White Blood Count 13.1 K/mm3 (4.4-11.0)
--- NOTE | 2021-06-25 05:42 | EX.PCM.CONCC ---
Assessment & Plan Assessment/Plan (1) Acute hypoxemic respiratory failure due to COVID-19: (2) COVID-19: PLAN: RECOMMENDATIONS: 1. Continue BiPAP and wean FiO2 for saturations greater than 90%. 2. Continue remdesivir and Decadron as ordered. 3. Continue prophylactic Lovenox. 4. Obtain infectious diseases consultation. 5. Diuretics, as needed, to maintain euvolemic state. 6. The patient should remain n.p.o. for now. IMPRESSIONS: 1. Acute hypoxemic respiratory failure secondary to COVID-19 pneumonia The patient was initially admitted to the hospital on June 22 with COVID-19 pneumonia. Her hospital course has been complicated by worsening respiratory status, culminating in transfer to the ICU on June 24 to be placed on noninvasive positive pressure ventilatory support. The patient is currently on BiPAP with an FiO2 of 70%. Plan to continue current supportive measures including remdesivir, Decadron and Lovenox as ordered. CTA chest was negative for PE. Given resolution of renal insufficiency and worsening oxygenation status, recommend infectious diseases consultation for consideration of baricitinib. Continue to wean FiO2 as tolerated for saturations greater than 90%. The patient would be at high risk for potential intubation. 2. Acute kidney injury Improved. Likely secondary to acute presentation/ATN in the setting of #1. Avoid nephrotoxic medications. Continue to monitor urine output. No indication for renal replacement therapy. TIME: 37 minutes of critical care time, independent of procedures, was spent addressing the patient's acute hypoxemic respiratory failure secondary to COVID-19 pneumonia, acute kidney injury, review of all data and collaboration with the care team. HPI Consult Data Date of Consult: 06/25/21 HPI Narrative Reason for Consultation: Acute hypoxemic respiratory failure secondary to COVID-19 pneumonia HPI Narrative: The patient is a 76-year-old female, with a history as outlined below, who presented to the emergency department via EMS on June 22 with altered mentation, failure to thrive and weakness. On presentation to the emergency department, the patient was documented to have a temperature of 95.9 ?F. She was otherwise hemodynamically stable. Initial laboratory evaluation demonstrated no evidence of a leukocytosis. Coagulation profile was within normal limits. Chemistry profile was notable for a creatinine of 1.73 with a lactate of 3.7 and AST of 75. Lipase was elevated at 789. Urine analysis was unremarkable. Rapid coronavirus antigen testing was positive. CTA was negative for PE but did demonstrate diffuse bilateral groundglass opacities. The patient was started on remdesivir, Decadron and Lovenox. She was subsequently admitted to the medical surgical floor for further management. The patient's hospital course has been complicated by worsening hypoxemia, which led to ICU transfer on June 24 and the need for noninvasive positive pressure ventilatory support. The patient is currently documented to be overall net +2.6 L for the hospitalization. Creatinine has normalized. [facility] Medical History Hypertension Home Medications NK 06/22/21 [History Last Taken Unknown] Allergy/AdvReac Type Severity Reaction Status Date / Time Ogppwxr-GNP-BlF Reductase Allergy Pain in Verified 12/06/15 09:34 Inhibitor joints [Fmcdcmy-Tbw-Jff Reductase Inhibitor] Social History Smoking Status: Never smoker substance use type: does not use ROS Constitutional Constitutional: Reports fatigue, malaise and weakness Eyes Eyes: Denies blurry vision or change in vision ENT HEENT: Denies headache(s), hoarseness or loss taste/smell Cardiovascular Cardiovascular: Reports dyspnea; Denies chest pain or dizziness Respiratory/Chest Respiratory/Chest: Reports cough and dyspnea Gastrointestinal Gastrointestinal: Denies abdominal pain, diarrhea, nausea or vomiting Genitourinary Genitourinary: Denies difficulty urinating Musculoskeletal Musculoskeletal: Denies arthralgias or back pain Integumentary Integumentary: Denies lesions, rash or skin ulcer Neurologic Neurologic: Denies abnormal gait or abnormal speech Psychiatric Psychiatric: Denies anxiety or depression Endocrine Endocrinology: Reports fatigue Hematologic/Lymphatic Hematologic/Lymphatic: Denies easy bleeding or easy bruising Physical Exam Const General Appearance: lethargic and on BiPAP Nutritional Appearance: obese HEENT normocephalic and head/scalp atraumatic Eyes PERRL and EOMs intact bilaterally Neck supple General: trachea midline Chest inspection of chest normal Resp Effort and Inspection: tachypneic Auscultation: diminished lung sounds Cardio regular rate and regular rhythm GI normal to inspection, nondistended, normoactive bowel sounds Extremity no clubbing, cyanosis or edema Skin no rashes or lesions noted Neuro no focal motor deficits Psych Mood & Affect: flat affect Lab / Micro Data Result Diagrams: 06/25/21 03:05 06/25/21 03:05 Labs: Laboratory Results - last 24 hr 06/24/21 10:00: WBC 14.5 H, RBC 4.75, Hgb 14.2, Hct 40.5, MCV 85.3, MCH 29.9, MCHC 35.1 D, RDW Std Deviation 43.9, RDW Coeff of Kimberlee 14.1, Plt Count 231, MPV 10.5 06/24/21 10:00: Sodium 145, Potassium 4.5, Chloride 112 H, Carbon Dioxide 20.0 L, Anion Gap 13, BUN 44 H, Creatinine 1.09 H, Estim Creat Clear Calc 49.62, Est GFR (MDRD) Af Amer 63, Est GFR (MDRD) Non-Af 52 L, BUN/Creatinine Ratio 40.4 H, Glucose 122 H, Calcium 8.7, Total Bilirubin 0.60, AST 54 H, ALT 32, Alkaline Phosphatase 99, Total Protein 7.0, Albumin 2.4 L, Globulin 4.6 H, Albumin/Globulin Ratio 0.5 L 06/25/21 03:05: WBC 13.1 H, RBC 4.77, Hgb 13.9, Hct 42.4, MCV 88.9, MCH 29.1, MCHC 32.8 D, RDW Std Deviation 46.0 H, RDW Coeff of Kimberlee 14.2, Plt Count 268, MPV 10.2, Immature Gran % (Auto) 1.100 H, Neut % (Auto) 85.0 H, Lymph % (Auto) 8.3 L, [place] % (Auto) 5.5, Eos % (Auto) 0.0, Baso % (Auto) 0.1, Absolute Neuts (auto) 11.1 H, Absolute Lymphs (auto) 1.08, Nucleated RBC % 0 06/25/21 03:05: Sodium 145, Potassium 4.1, Chloride 113 H, Carbon Dioxide 25.0, Anion Gap 7, BUN 40 H, Creatinine 1.02, Estim Creat Clear Calc 53.03, Est GFR (MDRD) Af Amer 68, Est GFR (MDRD) Non-Af 56 L, BUN/Creatinine Ratio 39.2 H, Glucose 98, Calcium 8.2 L, Total Bilirubin 0.60, AST 47 H, ALT 32, Alkaline Phosphatase 92, Total Protein 7.3, Albumin 2.5 L, Globulin 4.8 H, Albumin/Globulin Ratio 0.5 L Charges/Coding Procedures Hospitalists Procedures: 12637 Critial Care 1st Hr
[2021-06-25] MEDS: Enoxaparin 40 MG/0.4 ML Syringe SC (10:53)
[2021-06-25] MEDS: dexAMETHasone 10 MG/ML Vial 6 MG IV (10:53)
[2021-06-25 12:11] LABS: Allen Test Positive; Base Excess -5 mmol/L (-2 to +2); Bicarbonate 19.6 mmol/L (22-26); Blood Gas Specimen Type ART; FI02 85; O2 Delivery Device BiPAP; PO2 72 mmHG (75-100); RR 14; SITE R Radial; SO2 95 % (95-99); Total Carbon Dioxide 21 mmol/L; pCO2 31.8 mmHg (35-45)
--- NOTE | 2021-06-25 17:43 | PN.HOSP_ITS ---
Subjective Subjective Patient was seen and examined today in ICU, she is currently on BiPAP at 55% oxygen, drug abuse social worker informed me today that the patient requested her grandson be her POA. Objective Data Objective Data Vital Signs: Vital Signs Temp Pulse Resp BP Pulse Ox 99.9 F H 85 34 H 139/94 H 92 06/25/21 16:00 06/25/21 17:00 06/25/21 17:00 06/25/21 17:00 06/25/21 17:00 Oxygen Flow Rate (L/min) 60 Oxygen Delivery Method Bi-pap Weight: 67.9 kg Body Mass Index (BMI) 31.4 Intake & Output: Intake and Output for Last 24 Hours 06/23/21 06/24/21 06/25/21 23:59 23:59 23:59 Intake Total 950 / 950 621.25 / 621.25 882.5 / 882.5 Output Total 500 / 500 450 / 450 Balance 950 / 950 121.25 / 121.25 432.5 / 432.5 Medical Nutrition Assessment Dietitian: Malnutrition Criteria Met Start: 06/25/21 11:25 Freq: Status: Active Protocol: Document 06/25/21 11:25 AG (Rec: 06/25/21 11:25 [id number]) Nutrition Malnutrition Evidence of Malnutrition Exists Yes Malnutrition (severe): Acute Illness/Injury Evidenced By Suboptimal Energy Intake ( Severe),Weight Loss (Severe) Clinical Problem Acute Disease or Injury Related Malnutrition Etiology severe, acute malnutrition r/t inadequate energy intake d/t COVID-19 Signs/Symptoms as evidenced by unintentional 2.58kg/3.6% wt loss x 3 days; estimated PO intake meeting < 50% of estimated energy needs x 5 days Status Active Problem Recommendation Dietitian Recommendations/Changes When medically indicated, recommend continue regular diet as tolerated w/ 4oz ensure compact w/ meals d/t acute malnutrition. If pt intubated, will provide enteral nutrition support recommendations/management as indicated. Lab / Micro Data Result Diagrams: 06/25/21 03:05 06/25/21 03:05 Labs: Laboratory Results - last 24 hr 06/25/21 03:05: WBC 13.1 H, RBC 4.77, Hgb 13.9, Hct 42.4, MCV 88.9, MCH 29.1, MCHC 32.8 D, RDW Std Deviation 46.0 H, RDW Coeff of Kimberlee 14.2, Plt Count 268, MPV 10.2, Immature Gran % (Auto) 1.100 H, Neut % (Auto) 85.0 H, Lymph % (Auto) 8.3 L, [place] % (Auto) 5.5, Eos % (Auto) 0.0, Baso % (Auto) 0.1, Absolute Neuts (auto) 11.1 H, Absolute Lymphs (auto) 1.08, Nucleated RBC % 0 06/25/21 03:05: Sodium 145, Potassium 4.1, Chloride 113 H, Carbon Dioxide 25.0, Anion Gap 7, BUN 40 H, Creatinine 1.02, Estim Creat Clear Calc 53.03, Est GFR (MDRD) Af Amer 68, Est GFR (MDRD) Non-Af 56 L, BUN/Creatinine Ratio 39.2 H, Glucose 98, Calcium 8.2 L, Total Bilirubin 0.60, AST 47 H, ALT 32, Alkaline Phosphatase 92, Total Protein 7.3, Albumin 2.5 L, Globulin 4.8 H, Albumin/ Globulin Ratio 0.5 L Micro: Microbiology 06/22/21 13:18 Nasal Secretion SARS-CoV-2 Antigen (Rapid) - Final SARS-CoV-2 (COVID 19) ABG Data ABG results: ABG 06/25/21 12:04 Specimen Type ART Sample Site R Radial pH 7.40 Bicarbonate Actual 19.6 L Total CO2 21 Base Excess -5 L O2 Saturation 95 O2 % 85 ABG pCO2 31.8 L ABG pO2 72 L Bernardino Test Positive Respiration Rate 14 O2 Delivery Device BiPAP Clinical Comments Bipap 06/04 Physical Exam Const alert and no apparent distress General Appearance: cooperative, well kempt and well developed Orientation / Consciousness: awake, oriented to person, oriented to place and oriented to time HEENT normocephalic, head/scalp atraumatic and moist oral mucous membranes Head and Scalp: normocephalic Eyes PERRL, EOMs intact bilaterally and conjunctivae normal Neck nuchal rigidity, supple, no JVD and thyroid normal General: trachea midline Resp clear to auscultation bilaterally Resp Narrative: Patient appears comfortable at this time on BiPAP Auscultation: Negative for rales, rhonchi or wheezes Cardio regular rate, regular rhythm, S1 normal heart sound, S2 normal heart sound, no murmurs, no rub and no gallops GI normal to inspection, nondistended, normoactive bowel sounds, soft to palpation, non-tender and non-distended Extremity normal to inspection and no clubbing, cyanosis or edema Skin no rashes or lesions noted General Skin Exam: no breakdown Neuro CN's II-XII intact bilaterally, no focal motor deficits and no sensory deficits noted Sensorium / Orientation: awake and alert Speech: speech normal Psych thought process normal and affect normal Assessment & Plan Assessment/Plan (1) Acute hypoxemic respiratory failure due to COVID-19: (2) COVID-19: PLAN: 1. COVID-19 pneumonia-patient is currently on dexamethasone and remdesivir, patient remains on BiPAP at this time #2 acute hypoxic respiratory failure-pulse ox will be monitored, patient may need to be intubated if she fails on BiPAP #3 acute kidney injury-patient appears to have a backdrop of chronic kidney disease stage IIIb-labs will be monitored #4 acute debility secondary to COVID-19 pneumonia-PT and OT will see the patient #5 periods of mild metabolic encephalopathy secondary to respiratory failure- this will be monitored, patient at this time appears to be able to make her own decisions Charges/Coding Visit Charges Inpatient E&M: 81538 Subs Hosp L2
[2021-06-26] VITALS (35 sets, daily range): BP systolic 52–161; BP diastolic 41–110; PULSE 49–112; RESP 14–42; TEMP 36.2–37.6; O2SAT 87–100
[2021-06-26 03:59] LABS: Absolute Lymphocyte Count 0.93 X10^3/uL (0.83-4.51); Absolute Neutrophil Count 9.8 X10^3/uL (2.0-7.7); Basophil# 0.01 X10^3/uL; Basophil% 0.1 % (0-1); Hematocrit 40.9 % (37-47); Hemoglobin 13.7 g/dL (12.0-15.0); Lymphocyte # 0.93 X10^3/ul (0.83-4.51); Lymphocyte % 8.2 % (19-41); Mean Corp Hgb Conc 33.5 g/dL (32-36); Mean Corpuscular Volume 89.5 fL (81-99); Mean Platelet Vol. 10.1 fl (6.2-12.0); Monocyte# 0.56 X10^3/uL; Monocyte% 4.9 % (0-10); NRBC Flagged by Analyzer 0 % (0-5); Platelet Count 226 K/mm3 (150-450); RBC Distribution Width CV 14.5 % (11.6-14.6); RBC Distribution Width SD 46.9 fl (35.1-43.9); Red Blood Count 4.57 M/mm3 (4.2-5.4); White Blood Count 11.4 K/mm3 (4.4-11.0)
[2021-06-26 04:22] LABS: ALB/GLOB Ratio 0.5 RATIO (0.9-2.4); AST(SGOT) 31 U/L (15-37); Alanine Aminotransfer ALT/SGPT 29 U/L (13-56); Albumin, Serum 2.3 g/dL (3.2-5.0); Alkaline Phosphatase 88 U/L (45-117); Anion Gap 7 (5-15); BUN 38 mg/dL (7-18); BUN/Creat Ratio 37.3 RATIO (10-20); Calcium,Total 8.7 mg/dL (8.5-10.1); Chloride 119 mmol/L (98-107); Creatinine, Serum 1.02 mg/dL (0.55-1.02); EST Glomerular Filtration Rate 56 mL/min (>60); Est Glom Filt Rate - Afr Amer 68 mL/min (>60); Estimated Creatinine Clearance 51.08 ml/min; Globulin 4.6 g/dL (2.2-4.2); Glucose 122 mg/dL (74-106); Potassium 4.1 mmol/L (3.5-5.1); Protein, Total 6.9 g/dL (6.4-8.2); Sodium Level 149 mmol/L (136-145)
[2021-06-26] MEDS: Menthol/Lanolin/Calamine/Znox 113 GM Tube 1 APPLIC TOPICAL ×3 (05:52→21:25)
--- NOTE | 2021-06-26 06:41 | PN.CC_ITS ---
Assessment & Plan Assessment/Plan (1) Acute hypoxemic respiratory failure due to COVID-19: (2) COVID-19: PLAN: RECOMMENDATIONS: 1. Proceed with intubation. 2. Continue patient on assist control and wean FiO2/PEEP for saturations greater than 90%. 3. Nutrition consultation for tube feed recommendations. 4. Continue remdesivir and Decadron as ordered. 5. Continue prophylactic Lovenox. 6. Infectious diseases consultation is pending. 7. Start D5W given elevated sodium and chloride. 8. Start appropriate GI prophylaxis. IMPRESSIONS: 1. Acute hypoxemic respiratory failure secondary to COVID-19 pneumonia The patient was initially admitted to the hospital on June 22 with COVID-19 pneumonia. Her hospital course has been complicated by worsening respiratory status, culminating in transfer to the ICU on June 24 to be placed on noninvasive positive pressure ventilatory support. Unfortunately, the patient failed to improve on continuous BiPAP support and required intubation on June 26. She will be continued on assist control mode mechanical ventilation. FiO2 and PEEP will be weaned for saturations greater than 90%. Will obtain and send sputum for culture. Arterial blood gas will be obtained. In the interim, plan to continue current supportive measures including remdesivir, Decadron and Lovenox as ordered. CTA chest was negative for PE. 2. Acute kidney injury Improved. Likely secondary to acute presentation/ATN in the setting of #1. Avoid nephrotoxic medications. Continue to monitor urine output. No indication for renal replacement therapy. 3. Hypernatremia/hyperchloremia Start D5W given rising sodium and chloride levels. Recheck levels in the morning. TIME: 35 minutes of critical care time, independent of procedures, was spent addressing the patient's acute hypoxemic respiratory failure secondary to COVID- 19 pneumonia, acute kidney injury, review of all data and collaboration with the care team. Subjective Subjective The patient was seen and examined at the bedside this morning. Events from the last 24 hours have been reviewed. The patient is currently afebrile, hemodynamically stable and maintaining appropriate oxygen saturations on BiPAP with an FiO2 requirement of 80%. The patient has been unable to be weaned from noninvasive positive pressure ventilatory support. She is currently documented to be overall net +2 L for the hospitalization. The patient remains confused. She remains on remdesivir, Decadron and Lovenox. Infectious diseases consultation is still pending. Sodium is elevated to 149 with a chloride of 119. Creatinine is stable. Given the patient's tenuous respiratory status and lack of improvement on noninvasive positive pressure ventilatory support, the decision was made this morning, after discussion with the patient, to proceed with intubation. Intubation Indication: Respiratory failure Consent was obtained from: Patient The patient was placed in the appropriate sniffing position. Preoxygenated sedation via BiPAP was provided for a minimum of 3 minutes. The patient had continuous cardiac as well as pulse oximetry monitoring during the procedure. Procedure sedation was provided by the administration of 4 mg of Versed, 20 mg of etomidate and 100 mg of succinylcholine. Direct laryngoscopy was then performed using a number 3 MAC blade, which revealed a grade 1 view. A 7.5 mm endotracheal tube was visualized advancing between the cords to the level of 23 cm at the lip. The stylette was then removed and discarded. Tube placement was confirmed by fogging in the tube along with equal and bilateral breath sounds. Colorimetric change was visualized on the CO2 meter. The cuff was then inflated and the tube secured using a commercially available device. A good pulse oximetry waveform was seen on the monitor throughout the procedure. A portable chest x-ray has been ordered to confirm appropriate placement. The patient tolerated the procedure well. Objective Data Objective Data The patient's most recent lab work, culture data and imaging studies have all b een personally reviewed. Rapid coronavirus antigen testing was positive on June 22. Vital Signs: Vital Signs Temp Pulse Resp BP Pulse Ox 98.9 F 76 24 H 149/91 H 94 06/26/21 05:00 06/26/21 05:00 06/26/21 05:00 06/26/21 05:00 06/26/21 05:00 Oxygen Flow Rate (L/min) 60 Oxygen Delivery Method Bi-pap Weight: 66.8 kg Body Mass Index (BMI) 31.4 Intake & Output: Intake and Output for Last 24 Hours 06/24/21 06/25/21 06/26/21 23:59 23:59 23:59 Intake Total 621.25 / 621.25 1132.5 / 1132.5 0 / 0 Output Total 500 / 500 700 / 1050 800 / 800 Balance 121.25 / 121.25 432.5 / 82.5 -800 / -800 Medical Nutrition Assessment Dietitian: Malnutrition Criteria Met Start: 06/25/21 11:25 Freq: Status: Active Protocol: Document 06/25/21 11:25 (Rec: 06/25/21 11:25 AG [id number]) Nutrition Malnutrition Evidence of Malnutrition Exists Yes Malnutrition (severe): Acute Illness/Injury Evidenced By Suboptimal Energy Intake ( Severe),Weight Loss (Severe) Clinical Problem Acute Disease or Injury Related Malnutrition Etiology severe, acute malnutrition r/t inadequate energy intake d/t COVID-19 Signs/Symptoms as evidenced by unintentional 2.58kg/3.6% wt loss x 3 days; estimated PO intake meeting < 50% of estimated energy needs x 5 days Status Active Problem Recommendation Dietitian Recommendations/Changes When medically indicated, recommend continue regular diet as tolerated w/ 4oz ensure compact w/ meals d/t acute malnutrition. If pt intubated, will provide enteral nutrition support recommendations/management as indicated. Lab / Micro Data Attestation: I reviewed the patient's lab results. Result Diagrams: 06/26/21 03:45 06/26/21 03:45 Labs: Laboratory Results - last 24 hr 06/26/21 03:45: WBC 11.4 H, RBC 4.57, Hgb 13.7, Hct 40.9, MCV 89.5, MCH 30.0, M CHC 33.5, RDW Std Deviation 46.9 H, RDW Coeff of Kimberlee 14.5, Plt Count 226, MPV 10.1, Immature Gran % (Auto) 0.800, Neut % (Auto) 86.0 H, Lymph % (Auto) 8.2 L, [place] % (Auto) 4.9, Eos % (Auto) 0.0, Baso % (Auto) 0.1, Absolute Neuts (auto) 9.8 H, Absolute Lymphs (auto) 0.93, Nucleated RBC % 0 06/26/21 03:45: Sodium 149 H, Potassium 4.1, Chloride 119 H, Carbon Dioxide 23.0, Anion Gap 7, BUN 38 H, Creatinine 1.02, Estim Creat Clear Calc 51.08, Est GFR (MDRD) Af Amer 68, Est GFR (MDRD) Non-Af 56 L, BUN/Creatinine Ratio 37.3 H, Glucose 122 H, Calcium 8.7, Total Bilirubin 0.70, AST 31, ALT 29, Alkaline Phosphatase 88, Total Protein 6.9, Albumin 2.3 L, Globulin 4.6 H, Albumin/Globulin Ratio 0.5 L Micro: Microbiology 06/22/21 13:18 Nasal Secretion SARS-CoV-2 Antigen (Rapid) - Final SARS-CoV-2 (COVID 19) ABG Data ABG results: ABG 06/25/21 12:04 Specimen Type ART Sample Site R Radial pH 7.40 Bicarbonate Actual 19.6 L Total CO2 21 Base Excess -5 L O2 Saturation 95 O2 % 85 ABG pCO2 31.8 L ABG pO2 72 L Bernardino Test Positive Respiration Rate 14 O2 Delivery Device BiPAP Clinical Comments Bipap 06/04 Physical Exam Const alert General Appearance: on BiPAP Nutritional Appearance: obese HEENT normocephalic and head/scalp atraumatic Eyes PERRL and EOMs intact bilaterally Neck supple General: trachea midline Chest inspection of chest normal Resp Effort and Inspection: tachypneic Auscultation: diminished lung sounds Cardio S1 normal heart sound and S2 normal heart sound Rate: tachycardic GI normal to inspection, nondistended, normoactive bowel sounds Extremity no clubbing, cyanosis or edema Skin no rashes or lesions noted Neuro no focal motor deficits Psych Mood & Affect: anxious Charges/Coding Procedures Hospitalists Procedures: 98778 Critial Care 1st Hr
[2021-06-26] MEDS: Enoxaparin 40 MG/0.4 ML Syringe SC (08:36)
[2021-06-26] MEDS: Nystatin Ointment 1 APPLIC TOPICAL ×2 (08:36→21:25)
[2021-06-26] MEDS: dexAMETHasone 10 MG/ML Vial 6 MG IV (08:36)
--- NOTE | 2021-06-26 10:34 | RAD_ITS ---
INDICATION: intubation EXAMINATION/TECHNIQUE: X-RAY - XR Chest 1 View COMPARISON: 06/22/2021. FINDINGS: LINES/DEVICES: Endotracheal tube visualized with tip 1 cm above the tameka. Gastric tube is visualized in the stomach. Right upper extremity PICC visualized with catheter tip in the SVC. EKG leads are seen superimposing the chest. Left shoulder prosthesis is unremarkable. LUNGS: Mild prominence of the bronchovascular markings are seen but no evidence of focal lung consolidation. No evidence of edema or effusion. No pneumothorax. MEDIASTINUM AND CARDIOVASCULAR STRUCTURES: Tortuosity of the thoracic aorta is not visualized with mild cardiomegaly that demonstrate no significant change in comparison to the prior study. BONES AND SOFT TISSUES: Degenerative bone changes seen. RAD/Chest 1 View (Portable) IMPRESSION: Endotracheal tube visualized with tip 1 cm above the tameka. Gastric tube is visualized in the stomach. Right upper extremity PICC visualized with catheter tip in the SVC. No radiographic evidence of acute cardiopulmonary disease. Electronically Signed: Marcus Cohen MD at 11:13 EST Tel , Service support ,
--- NOTE | 2021-06-26 10:43 | NURSING ---
1032-pt intubated by Dr. Corral. 7.5 ETT, 23 at R lip. OG placed by Dr. Corral. Stat portable chest xray ordered.
[2021-06-26] MEDS: Etomidate 20 MG/10 ML Vial IV (10:50)
[2021-06-26] MEDS: Midazolam 5 MG/ML Syringe 4 MG IV (10:51)
[2021-06-26] MEDS: Succinylcholine Chloride 200 MG/10 ML Vial 100 MG IV (10:52)
[2021-06-26] MEDS: 0.9% Saline Lock 10 ML Syringe IV (10:53)
--- NOTE | 2021-06-26 11:44 | PCM.CONS.GEN ---
Assessment & Plan Assessment/Plan (1) Acute hypoxemic respiratory failure due to COVID-19: PLAN: I agree with low-dose dexamethasone plus remdesivir plus DVT prophylaxis. Continue supportive care. HPI Consult Data Date of Consult: 06/26/21 HPI Narrative HPI Narrative: JENI AVALOS, is a 76 F who presents earlier this week with respiratory distress/hypoxemia found to have COVID-19 positive. Chest x-ray showed bilateral infiltrates. During her hospitalization her respiratory status worsened, patient was intubated this morning. Chest x-ray personally reviewed shows bilateral infiltrates. Patient is currently on low-dose dexamethasone plus remdesivir plus low-molecular weight heparin. Currently sedated on the ventilator FiO2 of 80% PEEP of 10. Patient's renal function has improved over the last 72 hours. [facility] Medical History Hypertension Home Medications NK 06/22/21 [History Last Taken Unknown] Allergy/AdvReac Type Severity Reaction Status Date / Time Ehqgsjq-CQG-XfF Reductase Allergy Pain in Verified 12/06/15 09:34 Inhibitor joints [Uwklbyv-Udg-Baf Reductase Inhibitor] Social History Smoking Status: Never smoker substance use type: does not use Physical Exam Narrative Sedated on the ventilator. Lungs with some coarse breath sounds heart exam S1-S2 abdomen soft nontender. Torres cath Medical Records Data Medical Nutrition Assessment Dietitian: Malnutrition Criteria Met Start: 06/25/21 11:25 Freq: Status: Active Protocol: Document 06/26/21 09:55 (Rec: 06/26/21 11:41 [id number]) Nutrition Malnutrition Evidence of Malnutrition Exists Yes Malnutrition (severe): Acute Illness/Injury Evidenced By Suboptimal Energy Intake ( Severe),Weight Loss (Severe) Clinical Problem Acute Disease or Injury Related Malnutrition Etiology severe, acute malnutrition r/t inadequate energy intake d/t COVID-19 Signs/Symptoms as evidenced by unintentional 3.688kg/5.2% wt loss x 4 days; estimated PO intake meeting < 50% of estimated energy needs x 5 days Status Active Problem Recommendation Dietitian Recommendations/Changes When medically indicated, recommend continue regular diet as tolerated w/ 4oz ensure compact w/ meals d/t acute malnutrition. If pt intubated, will provide enteral nutrition support recommendations/management as indicated. Lab / Micro Data Result Diagrams: 06/26/21 03:45 06/26/21 03:45 Labs: Laboratory Results - last 24 hr 06/26/21 03:45: WBC 11.4 H, RBC 4.57, Hgb 13.7, Hct 40.9, MCV 89.5, MCH 30.0, MCHC 33.5, RDW Std Deviation 46.9 H, RDW Coeff of Kimberlee 14.5, Plt Count 226, MPV 10.1, Immature Gran % (Auto) 0.800, Neut % (Auto) 86.0 H, Lymph % (Auto) 8.2 L, [place] % (Auto) 4.9, Eos % (Auto) 0.0, Baso % (Auto) 0.1, Absolute Neuts (auto) 9.8 H, Absolute Lymphs (auto) 0.93, Nucleated RBC % 0 06/26/21 03:45: Sodium 149 H, Potassium 4.1, Chloride 119 H, Carbon Dioxide 23.0, Anion Gap 7, BUN 38 H, Creatinine 1.02, Estim Creat Clear Calc 51.08, Est GFR (MDRD) Af Amer 68, Est GFR (MDRD) Non-Af 56 L, BUN/Creatinine Ratio 37.3 H, Glucose 122 H, Calcium 8.7, Total Bilirubin 0.70, AST 31, ALT 29, Alkaline Phosphatase 88, Total Protein 6.9, Albumin 2.3 L, Globulin 4.6 H, Albumin/Globulin Ratio 0.5 L ABG Data ABG results: ABG 06/25/21 12:04 Specimen Type ART Sample Site R Radial pH 7.40 Bicarbonate Actual 19.6 L Total CO2 21 Base Excess -5 L O2 Saturation 95 O2 % 85 ABG pCO2 31.8 L ABG pO2 72 L Bernardino Test Positive Respiration Rate 14 O2 Delivery Device BiPAP Clinical Comments Bipap 06/04 Radiology Impression Chest X-Ray 06/26/21 10:34 IMPRESSION: Endotracheal tube visualized with tip 1 cm above the tameka. Gastric tube is visualized in the stomach. Right upper extremity PICC visualized with catheter tip in the SVC. No radiographic evidence of acute cardiopulmonary disease. Electronically Signed: Marcus Cohen MD at 11:13 EST Tel , Service support ,
[2021-06-26] MEDS: Propofol 10MG/Ml 1,000 MG/100 ML Bottle 8 MG CONT INF ×2 (11:49→16:56)
[2021-06-26 13:36] LABS: Allen Test Positive; Base Excess -7 mmol/L (-2 to +2); Bicarbonate 19.5 mmol/L (22-26); Blood Gas Specimen Type ART; FI02 80; Mode AC; O2 Delivery Device ET Tube; PEEP 10; PO2 134 mmHG (75-100); RR 16; SITE L Radial; SO2 99 % (95-99); Total Carbon Dioxide 21 mmol/L; Vt 400; pCO2 40.7 mmHg (35-45); pH 7.29 (7.35-7.45)
[2021-06-26] MEDS: CHLORHEXIDINE GLUC 2% CLOTH 1 EACH TOWELETTE TOPICAL (16:26)
[2021-06-26 19:20] LABS: CPK Total, Creatine Kinase 40 U/L (26-192); Triglycerides 92 mg/dL
--- NOTE | 2021-06-26 21:05 | PN.HOSP_ITS ---
Subjective Subjective Patient was seen and examined today, she had to be intubated today and is currently sedated and on the ventilator. Objective Data Objective Data Vital Signs: Vital Signs Temp Pulse Resp BP Pulse Ox 97.4 F L 64 16 112/82 H 95 06/26/21 19:00 06/26/21 20:48 06/26/21 20:48 06/26/21 19:00 06/26/21 20:48 Oxygen Flow Rate (L/min) 60 Oxygen Delivery Method Mechanical Ventilator Weight: 66.8 kg Body Mass Index (BMI) 31.4 Intake & Output: Intake and Output for Last 24 Hours 06/24/21 06/25/21 06/26/21 23:59 23:59 23:59 Intake Total 621.25 / 621.25 1132.5 / 1132.5 1270.24 / 1270.24 Output Total 500 / 500 700 / 1050 985 / 985 Balance 121.25 / 121.25 432.5 / 82.5 285.24 / 285.24 Medical Nutrition Assessment Dietitian: Malnutrition Criteria Met Start: 06/25/21 11:25 Freq: Status: Active Protocol: Document 06/26/21 09:55 AG (Rec: 06/26/21 11:41 AG [id number]) Nutrition Malnutrition Evidence of Malnutrition Exists Yes Malnutrition (severe): Acute Illness/Injury Evidenced By Suboptimal Energy Intake ( Severe),Weight Loss (Severe) Clinical Problem Acute Disease or Injury Related Malnutrition Etiology severe, acute malnutrition r/t inadequate energy intake d/t COVID-19 Signs/Symptoms as evidenced by unintentional 3.688kg/5.2% wt loss x 4 days; estimated PO intake meeting < 50% of estimated energy needs x 5 days Status Active Problem Recommendation Dietitian Recommendations/Changes When medically indicated, recommend continue regular diet as tolerated w/ 4oz ensure compact w/ meals d/t acute malnutrition. If pt intubated, will provide enteral nutrition support recommendations/management as indicated. Lab / Micro Data Result Diagrams: 06/27/21 04:37 06/27/21 04:37 Labs: Laboratory Results - last 24 hr 06/26/21 03:45: WBC 11.4 H, RBC 4.57, Hgb 13.7, Hct 40.9, MCV 89.5, MCH 30.0, MCHC 33.5, RDW Std Deviation 46.9 H, RDW Coeff of Kimberlee 14.5, Plt Count 226, MPV 10.1, Immature Gran % (Auto) 0.800, Neut % (Auto) 86.0 H, Lymph % (Auto) 8.2 L, [place] % (Auto) 4.9, Eos % (Auto) 0.0, Baso % (Auto) 0.1, Absolute Neuts (auto) 9.8 H, Absolute Lymphs (auto) 0.93, Nucleated RBC % 0 06/26/21 03:45: Sodium 149 H, Potassium 4.1, Chloride 119 H, Carbon Dioxide 23.0, Anion Gap 7, BUN 38 H, Creatinine 1.02, Estim Creat Clear Calc 51.08, Est GFR (MDRD) Af Amer 68, Est GFR (MDRD) Non-Af 56 L, BUN/Creatinine Ratio 37.3 H, Glucose 122 H, Calcium 8.7, Total Bilirubin 0.70, AST 31, ALT 29, Alkaline Phosphatase 88, Total Protein 6.9, Albumin 2.3 L, Globulin 4.6 H, Albumin/Globulin Ratio 0.5 L 06/26/21 03:45: Total Creatine Kinase 40, Triglycerides 92 Micro: Microbiology 06/26/21 Unknown Sputum, Induced/Lukens Gram Stain - Final 06/22/21 13:18 Nasal Secretion SARS-CoV-2 Antigen (Rapid) - Final SARS-CoV-2 (COVID 19) ABG Data ABG results: ABG 06/26/21 13:29 Specimen Type ART Sample Site L Radial pH 7.29 L Bicarbonate Actual 19.5 L Total CO2 21 Base Excess -7 L O2 Saturation 99 O2 % 80 ABG pCO2 40.7 ABG pO2 134 H Bernardino Test Positive Respiration Rate 16 O2 Delivery Device ET Tube Vent Mode AC Tidal Volume 400 POC PEEP 10 Radiography Diagnostic Testing: Radiology Impression Chest X-Ray 06/26/21 10:34 IMPRESSION: Endotracheal tube visualized with tip 1 cm above the tameka. Gastric tube is visualized in the stomach. Right upper extremity PICC visualized with catheter tip in the SVC. No radiographic evidence of acute cardiopulmonary disease. Electronically Signed: Marcus Cohen MD at 11:13 EST Tel , Service support , Physical Exam Const Constitutional Narrative: Patient is sedated and on the ventilator General Appearance: cooperative, well kempt and well developed Orientation / Consciousness: awake, oriented to person, oriented to place and oriented to time HEENT normocephalic, head/scalp atraumatic and moist oral mucous membranes Head and Scalp: normocephalic Neck nuchal rigidity, no JVD and thyroid normal General: trachea midline Resp normal respiratory effort, no retractions, no use of accessory muscles and clear to auscultation bilaterally Auscultation: Negative for rales, rhonchi or wheezes Cardio regular rate, regular rhythm, S1 normal heart sound, S2 normal heart sound, no murmurs, no rub and no gallops GI normal to inspection, nondistended, normoactive bowel sounds, soft to palpation, non-tender and non-distended Extremity no clubbing, cyanosis or edema Skin no rashes or lesions noted General Skin Exam: no breakdown Neuro Neuro Narrative: Patient is sedated and on the ventilator Psych Psych Narrative: Patient is sedated and on the ventilator Assessment & Plan Assessment/Plan (1) COVID-19: (2) Acute hypoxemic respiratory failure due to COVID-19: PLAN: 1. COVID-19 pneumonia-patient is currently on dexamethasone and remdesivir, patient is on the ventilator at this time #2 acute hypoxic respiratory failure-pulse ox will be monitored, patient is currently on the ventilator #3 acute kidney injury-patient appears to have a backdrop of chronic kidney disease stage IIIb-labs will be monitored #4 acute debility secondary to COVID-19 pneumonia-PT and OT will see the patient Prognosis remains poor Charges/Coding Visit Charges Inpatient E&M: 63670 Subs Hosp L2
[2021-06-27] VITALS (69 sets, daily range): BP systolic 62–124; BP diastolic 42–87; PULSE 47–132; RESP 13–34; TEMP 36.2–40.2; O2SAT 65–99
--- NOTE | 2021-06-27 02:57 | RAD_ITS ---
EXAM: XR CHEST, 1 VIEW CLINICAL INDICATION: crepitus in intubated patient TECHNIQUE: Frontal view of the chest. This report was created using [employer] report generation technology. COMPARISON: None. FINDINGS: See Impression. RAD/Chest 1 View (Portable) IMPRESSION: 1. Unchanged support devices. 2. Persisting heterogeneous airspace disease at the left lower lobe and slightly more conspicuous airspace opacities at the right lung base. 3. No interval pneumothorax. 4. No other significant interval changes. Electronically Signed: Vito Robbins MD at 3:28 EST Tel , Service support ,
--- NOTE | 2021-06-27 04:00 | NURSING ---
Crepitus noted to patients bilateral neck, worse on patients right than left. Dr Knight notified. Chest xray ordered.
[2021-06-27 04:51] LABS: Absolute Lymphocyte Count 1.08 X10^3/uL (0.83-4.51); Absolute Neutrophil Count 10.1 X10^3/uL (2.0-7.7); Basophil# 0.02 X10^3/uL; Basophil% 0.2 % (0-1); Hematocrit 39.8 % (37-47); Hemoglobin 12.6 g/dL (12.0-15.0); Lymphocyte # 1.08 X10^3/ul (0.83-4.51); Lymphocyte % 9.1 % (19-41); Mean Corp Hgb Conc 31.7 g/dL (32-36); Mean Corpuscular Hgb 29.1 pg (27.0-32.0); Mean Corpuscular Volume 91.9 fL (81-99); Mean Platelet Vol. 10.7 fl (6.2-12.0); Monocyte# 0.54 X10^3/uL; Monocyte% 4.6 % (0-10); NRBC Flagged by Analyzer 0 % (0-5); Neutrophil # 10.05 X10^3/uL (2.7-7.7); Neutrophil % 84.7 % (47-70); Platelet Count 178 K/mm3 (150-450); RBC Distribution Width CV 14.6 % (11.6-14.6); RBC Distribution Width SD 49.3 fl (35.1-43.9); Red Blood Count 4.33 M/mm3 (4.2-5.4); White Blood Count 11.9 K/mm3 (4.4-11.0)
[2021-06-27] MEDS: Propofol 10MG/Ml 1,000 MG/100 ML Bottle 8 MG CONT INF (05:00)
[2021-06-27 05:07] LABS: ALB/GLOB Ratio 0.5 RATIO (0.9-2.4); AST(SGOT) 18 U/L (15-37); Alanine Aminotransfer ALT/SGPT 21 U/L (13-56); Alkaline Phosphatase 79 U/L (45-117); Anion Gap 6 (5-15); BUN 45 mg/dL (7-18); BUN/Creat Ratio 32.6 RATIO (10-20); Calcium,Total 7.8 mg/dL (8.5-10.1); Chloride 115 mmol/L (98-107); Creatinine, Serum 1.38 mg/dL (0.55-1.02); EST Glomerular Filtration Rate 40 mL/min (>60); Est Glom Filt Rate - Afr Amer 48 mL/min (>60); Estimated Creatinine Clearance 37.14 ml/min; Glucose 185 mg/dL (74-106); Potassium 4.3 mmol/L (3.5-5.1); Sodium Level 143 mmol/L (136-145)
--- NOTE | 2021-06-27 06:41 | PN.CC_ITS ---
Assessment & Plan Assessment/Plan (1) Acute hypoxemic respiratory failure due to COVID-19: (2) COVID-19: PLAN: RECOMMENDATIONS: 1. Continue patient on assist control and wean FiO2/PEEP for saturations greater than 90%. 2. Maximize sedation. Goal to maintain a RASS of -3 to -4. 3. Obtain repeat chest x-ray. 4. Obtain arterial blood gas. 5. Start empiric antimicrobials. 6. Check D-dimer. If elevated, place patient on therapeutic dose Lovenox. 7. Okay to start tube feeds today from my perspective. 8. Continue remdesivir and Decadron as ordered. 9. Continue appropriate GI prophylaxis. 10. Continue vasopressor support to maintain a mean arterial pressure at or above 65 mmHg. IMPRESSIONS: 1. Acute hypoxemic respiratory failure secondary to COVID-19 pneumonia The patient was initially admitted to the hospital on June 22 with COVID-19 pneumonia. Her hospital course has been complicated by worsening respiratory status, culminating in transfer to the ICU on June 24 to be placed on noninvasive positive pressure ventilatory support. Unfortunately, the patient failed to improve on continuous BiPAP support and required intubation on June 26. She will be continued on assist control mode mechanical ventila tion. FiO2 and PEEP will be weaned for saturations greater than 90%. In the interim, plan to continue current supportive measures including remdesivir, Decadron and Lovenox as ordered. CTA chest was negative for PE. In light of her clinical decompensation, the patient will be placed on empiric antimicrobials as well. Tube feeds can be initiated today from my perspective. 2. Distributive shock Likely secondary to acute infectious etiology coupled with the hemodynamic impact of sedative medication use. Continue vasopressor support to maintain mean arterial pressure at or above 65 mmHg. 3. Acute kidney injury Likely secondary to acute presentation/ATN in the setting of #1. Avoid nephrotoxic medications. Continue to monitor urine output. No indication for renal replacement therapy. TIME: 38 minutes of critical care time, independent of procedures, was spent addressing the patient's acute hypoxemic respiratory failure secondary to COVID- 19 pneumonia, acute kidney injury, distributive shock, review of all data and collaboration with the care team. Subjective Subjective The patient was seen and examined at the bedside this morning. Events from the last 24 hours have been reviewed. The patient is currently afebrile hemod ynamically stable on Levophed at 2 mcg/min. She is sedated on propofol and fentanyl. Overnight, nursing staff did report new development of crepitus. However, follow-up chest x-ray did not demonstrate evidence of a pneumothorax. The patient is currently documented to be overall net +3.3 L for the hospitalization. She remains on remdesivir, Decadron and Lovenox. Creatinine is increased to 1.38. Objective Data Objective Data The patient's most recent lab work, culture data and imaging studies have all been personally reviewed. Rapid coronavirus antigen testing was positive on June 22. Sputum culture is pending. Vital Signs: Vital Signs Temp Pulse Resp BP Pulse Ox 98 F 78 22 H 86/66 L 90 06/27/21 05:00 06/27/21 05:06/27/21 05:00 06/27/21 05:06/27/21 05:00 Oxygen Flow Rate (L/min) 60 Oxygen Delivery Method Mechanical Ventilator Weight: 66.8 kg Body Mass Index (BMI) 31.4 Intake & Output: Intake and Output for Last 24 Hours 06/25/21 06/26/21 06/27/21 23:59 23:59 23:59 Intake Total 1132.5 / 1132.5 1420.84 / 1476.84 436.43 / 436.43 Output Total 700 / 1050 985 / 1110 250 / 250 Balance 432.5 / 82.5 435.84 / 366.84 186.43 / 186.43 Medical Nutrition Assessment Dietitian: Malnutrition Criteria Met Start: 06/25/21 11:25 Freq: Status: Active Protocol: Document 06/26/21 09:55 AG (Rec: 06/26/21 11:41 [id number]) Nutrition Malnutrition Evidence of Malnutrition Exists Yes Malnutrition (severe): Acute Illness/Injury Evidenced By Suboptimal Energy Intake ( Severe),Weight Loss (Severe) Clinical Problem Acute Disease or Injury Related Malnutrition Etiology severe, acute malnutrition r/t inadequate energy intake d/t COVID-19 Signs/Symptoms as evidenced by unintentional 3.688kg/5.2% wt loss x 4 days; estimated PO intake meeting < 50% of estimated energy needs x 5 days Status Active Problem Recommendation Dietitian Recommendations/Changes When medically indicated, recommend continue regular diet as tolerated w/ 4oz ensure compact w/ meals d/t acute malnutrition. If pt intubated, will provide enteral nutrition support recommendations/management as indicated. Lab / Micro Data Attestation: I reviewed the patient's lab results. Result Diagrams: 06/27/21 04:37 06/27/21 04:37 Labs: Laboratory Results - last 24 hr 06/26/21 03:45: Total Creatine Kinase 40, Triglycerides 92 06/27/21 04:37: WBC 11.9 H, RBC 4.33, Hgb 12.6, Hct 39.8, MCV 91.9, MCH 29.1, MCHC 31.7 L D, RDW Std Deviation 49.3 H, RDW Coeff of Kimberlee 14.6, Plt Count 178, MPV 10.7, Immature Gran % (Auto) 1.400 H, Neut % (Auto) 84.7 H, Lymph % (Auto) 9.1 L, [place] % (Auto) 4.6, Eos % (Auto) 0.0, Baso % (Auto) 0.2, Absolute Neuts (auto) 10.1 H, Absolute Lymphs (auto) 1.08, Nucleated RBC % 0 06/27/21 04:37: Sodium 143, Potassium 4.3, Chloride 115 H, Carbon Dioxide 22.0, Anion Gap 6, BUN 45 H, Creatinine 1.38 H, Estim Creat Clear Calc 37.14, Est GFR (MDRD) Af Amer 48 L, Est GFR (MDRD) Non-Af 40 L, BUN/Creatinine Ratio 32.6 H, Glucose 185 H, Calcium 7.8 L, Total Bilirubin 0.40, AST 18, ALT 21, Alkaline Phosphatase 79, Total Protein 6.0 L, Albumin 2.0 L, Globulin 4.0, Albumi n/Globulin Ratio 0.5 L Micro: Microbiology 06/26/21 Unknown Sputum, Induced/Lukens Gram Stain - Final 06/22/21 13:18 Nasal Secretion SARS-CoV-2 Antigen (Rapid) - Final SARS-CoV-2 (COVID 19) ABG Data ABG results: ABG 06/26/21 13:29 Specimen Type ART Sample Site L Radial pH 7.29 L Bicarbonate Actual 19.5 L Total CO2 21 Base Excess -7 L O2 Saturation 99 O2 % 80 ABG pCO2 40.7 ABG pO2 134 H Bernardino Test Positive Respiration Rate 16 O2 Delivery Device ET Tube Vent Mode AC Tidal Volume 400 POC PEEP 10 Radiography Diagnostic Testing: Radiology Impression Chest X-Ray 06/26/21 10:34 IMPRESSION: Endotracheal tube visualized with tip 1 cm above the tameka. Gastric tube is visualized in the stomach. Right upper extremity PICC visualized with catheter tip in the SVC. No radiographic evidence of acute cardiopulmonary disease. Electronically Signed: Marcus Cohen MD at 11:13 EST Tel , Service support , Chest X-Ray 06/27/21 02:57 IMPRESSION: 1. Unchanged support devices. 2. Persisting heterogeneous airspace disease at the left lower lobe and slightly more conspicuous airspace opacities at the right lung base. 3. No interval pneumothorax. 4. No other significant interval changes. Electronically Signed: Vito Robbins MD at 3:28 EST Tel , Service support , Physical Exam Const General Appearance: ill appearing, intubated and patient mechanically ventilated Nutritional Appearance: obese HEENT normocephalic and head/scalp atraumatic Mouth: endotracheal tube in place and OG tube in place Eyes PERRL and EOMs intact bilaterally Neck supple General: trachea midline Chest Chest Narrative: + Crepitus Resp Effort and Inspection: tachypneic Auscultation: diminished lung sounds; Negative for rales, rhonchi or wheezes Cardio S1 normal heart sound and S2 normal heart sound Rate: tachycardic GI normal to inspection, nondistended, normoactive bowel sounds Extremity no clubbing, cyanosis or edema Skin no rashes or lesions noted Neuro Sensorium / Orientation: sedated on vent Charges/Coding Procedures Hospitalists Procedures: 15617 Critial Care 1st Hr
[2021-06-27] MEDS: Enoxaparin 40 MG/0.4 ML Syringe SC (08:08)
[2021-06-27] MEDS: dexAMETHasone 10 MG/ML Vial 6 MG IV (08:08)
--- NOTE | 2021-06-27 08:26 | RAD_ITS ---
STUDY: X-RAY CHEST REASON FOR EXAM: Female, 76 years old. SOB/Crepitus TECHNIQUE: AP COMPARISON: 06/27/2021 FINDINGS: Endotracheal tube and esophagogastric tube stable. Right arm PICC is stable. Left shoulder replacement. Improved aeration of the bilateral lower lungs with decreasing patchy infiltrates. There is subcutaneous emphysema overlying the right neck and chest. There is no demonstrated pleural abnormality. Normal size heart. Normal mediastinum and joseph. Normal visualized pulmonary arteries. There is atherosclerotic tortuosity of the aortic arch and descending thoracic aorta. No acute bony process. Left rib fractures. There is no demonstrated abnormality of the visualized soft tissue structures of the upper abdomen. RAD/Chest 1 View (Portable) IMPRESSION: 1. Persistent but decreasing bibasilar infiltrates. 2. Similar subcutaneous emphysema of the right neck/chest. Electronically Signed: Silviano Burton MD ([place]) at 9:19 EST , Service support ,
[2021-06-27 09:21] LABS: Allen Test Positive; Base Excess -8 mmol/L (-2 to +2); Blood Gas Specimen Type ART; FI02 100; Mode AC; O2 Delivery Device Adult Vent; PEEP 10; PO2 61 mmHG (75-100); RR 16; SITE L Radial; SO2 87 % (95-99); Total Carbon Dioxide 20 mmol/L; Vt 400; pCO2 42.7 mmHg (35-45); pH 7.26 (7.35-7.45)
[2021-06-27] MEDS: CHLORHEXIDINE GLUC 2% CLOTH 1 EACH TOWELETTE TOPICAL (09:26)
[2021-06-27] MEDS: Nystatin Ointment 1 APPLIC TOPICAL ×2 (09:26→21:07)
[2021-06-27] MEDS: Acetaminophen 650 MG/20 ML UDC GT (09:28)
[2021-06-27 09:58] LABS: D-Dimer Quantitative (DVT/PE) 13.93 FEU/ug/m (0.27-0.49)
[2021-06-27] MEDS: Enoxaparin 30 MG/0.3 ML Syringe SC (11:27)
[2021-06-27] MEDS: Vital AF 1.2 Cal Liquid 1,000 ML 20 ML GT (11:52)
[2021-06-27] MEDS: Phenylephrine 40 mg/250 mL 0.9% NS 33.8 MG CONT INF (12:50)
--- NOTE | 2021-06-27 13:32 | PCM.RX.CS ---
Consult Pharmacy has been consulted to manage selected antiobiotic: Vancomycin Type of Consult: New start Labs: Sodium 143 mmol/L (136-145) 06/27/21 04:37 Potassium 4.3 mmol/L (3.5-5.1) 06/27/21 04:37 Chloride 115 mmol/L (98-107) H 06/27/21 04:37 Carbon Dioxide 22.0 mmol/L (21.0-32.0) 06/27/21 04:37 Anion Gap 6 (5-15) 06/27/21 04:37 BUN 45 mg/dL (7-18) H 06/27/21 04:37 Creatinine 1.38 mg/dL (0.55-1.02) H 06/27/21 04:37 Est GFR (MDRD) Af Amer 48 mL/min (>60) L 06/27/21 04:37 Est GFR (MDRD) Non-Af 40 mL/min (>60) L 06/27/21 04:37 BUN/Creatinine Ratio 32.6 RATIO (10-20) H 06/27/21 04:37 Glucose 185 mg/dL (74-106) H 06/27/21 04:37 Microbiology: Microbiology 06/26/21 Unknown Sputum, Induced/Lukens Gram Stain - Final 06/26/21 Unknown Sputum, Induced/Lukens Respiratory Culture - Preliminary Staphylococcus aureus 06/22/21 13:18 Nasal Secretion SARS-CoV-2 Antigen (Rapid) - Final SARS-CoV-2 (COVID 19) Goal Trough: 15-20 mcg/mL Pharmacy Plan for Drug Dosing: NEW START IV VANCOMYCIN Consulting Physician: Dr. Corral Indication: Worsening respiratory status/ infection R/O Goal Trough: 15-20 SrCr: 1.38 CrCl: 31 mL/min Comments: Loading dose of 1750mg IV x1 ordered and administered 06/27/21 @1008 Vancomcyin Dose: 1g IV Q24h to start 06/28/21 @1000 Pending Level: 06/29/21 @0930, prior to 3rd total dose per protocol Pharmacy Service will continue to monitor and adjust dosing as required.
[2021-06-27] MEDS: Menthol/Lanolin/Calamine/Znox 113 GM Tube 1 APPLIC TOPICAL ×2 (13:47→21:06)
[2021-06-27] MEDS: Propofol 10MG/Ml 1,000 MG/100 ML Bottle 10 MG CONT INF (13:58)
--- NOTE | 2021-06-27 18:31 | PN.HOSP_ITS ---
Subjective Subjective Patient was seen and examined today, she remains on the ventilator, she is sedated. There is evidence of pneumomediastinum at this time on examination with crepitance over the patient's chest wall. Objective Data Objective Data Vital Signs: Vital Signs Temp Pulse Resp BP Pulse Ox 98.2 F 58 L 16 89/44 L 94 06/27/21 16:19 06/27/21 16:33 06/27/21 16:33 06/27/21 16:33 06/27/21 16:33 Oxygen Flow Rate (L/min) 60 Oxygen Delivery Method Mechanical Ventilator Weight: 66.8 kg Body Mass Index (BMI) 31.4 Intake & Output: Intake and Output for Last 24 Hours 06/25/21 06/26/21 06/27/21 23:59 23:59 23:59 Intake Total 1132.5 / 1132.5 1420.84 / 1476.84 2707.72 / 2707.72 Output Total 700 / 1050 985 / 1110 425 / 425 Balance 432.5 / 82.5 435.84 / 366.84 2282.72 / 2282.72 Medical Nutrition Assessment Dietitian: Malnutrition Criteria Met Start: 06/25/21 11:25 Freq: Status: Active Protocol: Document 06/26/21 09:55 AG (Rec: 06/26/21 11:41 AG [id number]) Nutrition Malnutrition Evidence of Malnutrition Exists Yes Malnutrition (severe): Acute Illness/Injury Evidenced By Suboptimal Energy Intake ( Severe),Weight Loss (Severe) Clinical Problem Acute Disease or Injury Related Malnutrition Etiology severe, acute malnutrition r/t inadequate energy intake d/t COVID-19 Signs/Symptoms as evidenced by unintentional 3.688kg/5.2% wt loss x 4 days; estimated PO intake meeting < 50% of estimated energy needs x 5 days Status Active Problem Recommendation Dietitian Recommendations/Changes When medically indicated, recommend continue regular diet as tolerated w/ 4oz ensure compact w/ meals d/t acute malnutrition. If pt intubated, will provide enteral nutrition support recommendations/management as indicated. Lab / Micro Data Result Diagrams: 06/27/21 04:37 06/27/21 04:37 Labs: Laboratory Results - last 24 hr 06/26/21 03:45: Total Creatine Kinase 40, Triglycerides 92 06/27/21 04:37: WBC 11.9 H, RBC 4.33, Hgb 12.6, Hct 39.8, MCV 91.9, MCH 29.1, MCHC 31.7 L D, RDW Std Deviation 49.3 H, RDW Coeff of Kimberlee 14.6, Plt Count 178, MPV 10.7, Immature Gran % (Auto) 1.400 H, Neut % (Auto) 84.7 H, Lymph % (Auto) 9.1 L, [place] % (Auto) 4.6, Eos % (Auto) 0.0, Baso % (Auto) 0.2, Absolute Neuts (auto) 10.1 H, Absolute Lymphs (auto) 1.08, Nucleated RBC % 0 06/27/21 04:37: Sodium 143, Potassium 4.3, Chloride 115 H, Carbon Dioxide 22.0, Anion Gap 6, BUN 45 H, Creatinine 1.38 H, Estim Creat Clear Calc 37.14, Est GFR (MDRD) Af Amer 48 L, Est GFR (MDRD) Non-Af 40 L, BUN/Creatinine Ratio 32.6 H, Glucose 185 H, Calcium 7.8 L, Total Bilirubin 0.40, AST 18, ALT 21, Alkaline Phosphatase 79, Total Protein 6.0 L, Albumin 2.0 L, Globulin 4.0, Albumin/Globulin Ratio 0.5 L 06/27/21 09:10: D-Dimer Quant (PE/DVT) 13.93 H* Micro: Microbiology 06/26/21 Unknown Sputum, Induced/Lukens Gram Stain - Final 06/26/21 Unknown Sputum, Induced/Lukens Respiratory Culture - Preliminary Staphylococcus aureus 06/22/21 13:18 Nasal Secretion SARS-CoV-2 Antigen (Rapid) - Final SARS-CoV-2 (COVID 19) ABG Data ABG results: ABG 06/27/21 09:13 Specimen Type ART Sample Site L Radial pH 7.26 L Bicarbonate Actual 19.0 L Total CO2 20 Base Excess -8 L O2 Saturation 87 L O2 % 100 ABG pCO2 42.7 ABG pO2 61 L Bernardino Test Positive Respiration Rate 16 O2 Delivery Device Adult Vent Vent Mode AC Tidal Volume 400 POC PEEP 10 Radiography Diagnostic Testing: Radiology Impression Chest X-Ray 06/27/21 02:57 IMPRESSION: 1. Unchanged support devices. 2. Persisting heterogeneous airspace disease at the left lower lobe and slightly more conspicuous airspace opacities at the right lung base. 3. No interval pneumothorax. 4. No other significant interval changes. Electronically Signed: Vito Robbins MD at 3:28 EST Tel , Service support , Physical Exam Const Constitutional Narrative: Patient is sedated and on the ventilator General Appearance: cooperative, well kempt and well developed Orientation / Consciousness: awake, oriented to person, oriented to place and oriented to time HEENT normocephalic and head/scalp atraumatic Head and Scalp: normocephalic Neck nuchal rigidity, no JVD and thyroid normal General: trachea midline Resp normal respiratory effort, no retractions, no use of accessory muscles and clear to auscultation bilaterally Resp Narrative: There is crepitance noted over the patient's chest wall to palpation extending up into the neck area Auscultation: Negative for rales, rhonchi or wheezes Cardio regular rate, regular rhythm, S1 normal heart sound, S2 normal heart sound, no murmurs, no rub and no gallops GI normal to inspection, nondistended, normoactive bowel sounds, soft to palpation, non-tender and non-distended Extremity normal to inspection and no clubbing, cyanosis or edema Skin no rashes or lesions noted General Skin Exam: no breakdown Neuro Neuro Narrative: Patient is sedated and on the ventilator Psych thought process normal Psych Narrative: Patient is sedated and on the ventilator Assessment & Plan Assessment/Plan (1) COVID-19: (2) Acute hypoxemic respiratory failure due to COVID-19: PLAN: 1. COVID-19 pneumonia-patient is currently on dexamethasone and remdesivir, patient is on the ventilator at this time #2 acute hypoxic respiratory failure-pulse ox will be monitored, patient is currently on the ventilator, patient is currently on empiric antibiotic coverage #3 acute kidney injury-patient appears to have a backdrop of chronic kidney disease stage IIIb-labs will be monitored #4 Pneumomediastinum-supportive measures, attempt to readjust vent #5 elevated [id number] medicine recommends full dose Lovenox at this time, I will write for it Prognosis remains poor Charges/Coding Visit Charges Inpatient E&M: 34846 Subs Hosp L2
[2021-06-27] MEDS: Phenylephrine 40 mg/250 mL 0.9% NS 56.3 MG CONT INF ×2 (18:51→23:00)
[2021-06-28] VITALS (40 sets, daily range): BP systolic 79–101; BP diastolic 50–72; PULSE 68–110; RESP 16–26; TEMP 36.6–37.9; O2SAT 87–97
[2021-06-28] MEDS: Acetaminophen 650 MG/20 ML UDC GT (00:11)
[2021-06-28] MEDS: Propofol 10MG/Ml 1,000 MG/100 ML Bottle 8 MG CONT INF ×2 (02:00→12:00)
[2021-06-28] MEDS: Phenylephrine 40 mg/250 mL 0.9% NS 56.3 MG CONT INF ×2 (04:33→08:36)
[2021-06-28] MEDS: Menthol/Lanolin/Calamine/Znox 113 GM Tube 1 APPLIC TOPICAL ×3 (04:58→21:33)
[2021-06-28 05:49] LABS: Absolute Lymphocyte Count 0.99 X10^3/uL (0.83-4.51); Absolute Neutrophil Count 15.2 X10^3/uL (2.0-7.7); Basophil# 0.06 X10^3/uL; Basophil% 0.4 % (0-1); Eosinophil# 0.02 X10^3/uL; Eosinophils% 0.1 % (0-5); Hematocrit 42.1 % (37-47); Hemoglobin 13.1 g/dL (12.0-15.0); Lymphocyte # 0.99 X10^3/ul (0.83-4.51); Lymphocyte % 5.9 % (19-41); Mean Corp Hgb Conc 31.1 g/dL (32-36); Mean Corpuscular Hgb 29.1 pg (27.0-32.0); Mean Corpuscular Volume 93.6 fL (81-99); Mean Platelet Vol. 11.1 fl (6.2-12.0); Monocyte# 0.26 X10^3/uL; Monocyte% 1.5 % (0-10); NRBC Flagged by Analyzer 0.3 % (0-5); Neutrophil # 15.16 X10^3/uL (2.7-7.7); Neutrophil % 89.9 % (47-70); POSITIVE MORPHOLOGY YES; Platelet Count 186 K/mm3 (150-450); RBC Distribution Width CV 15.2 % (11.6-14.6); White Blood Count 16.9 K/mm3 (4.4-11.0)
[2021-06-28 06:09] LABS: Differential Indicated SCAN CRITERIA MET
--- NOTE | 2021-06-28 06:28 | PN.CC_ITS ---
Assessment & Plan Assessment/Plan (1) Acute hypoxemic respiratory failure due to COVID-19: (2) COVID-19: PLAN: RECOMMENDATIONS: 1. Continue patient on assist control and wean FiO2/PEEP for saturations greater than 90%. 2. Continue antimicrobials as ordered. 3. Continue therapeutic Lovenox (dose adjusted for renal function) 4. Continue Decadron to complete 10 days of therapy. 5. Continue tube feeds as tolerated. 6. Continue appropriate GI prophylaxis. 7. Continue vasopressor support to maintain a mean arterial pressure at or above 65 mmHg. IMPRESSIONS: 1. Acute hypoxemic respiratory failure secondary to COVID-19 pneumonia The patient was initially admitted to the hospital on June 22 with COVID-19 pneumonia. Her hospital course has been complicated by worsening respiratory status, culminating in transfer to the ICU on June 24 to be placed on noninvasive positive pressure ventilatory support. Unfortunately, the patient failed to improve on continuous BiPAP support and required intubation on June 26. She will be continued on assist control mode mechanical ventilation. FiO2 and PEEP will be weaned for saturations greater than 90%. In the interim, plan to continue current supportive measures including remdesivir, Decadron and Lovenox as ordered. Although her initial CTA chest was negative for PE, follow-up D-dimer was notably elevated at 14. Therefore, the patient will be continued on therapeutic Lovenox. In addition, given her clinical decompensation, empiric antimicrobials were initiated. Tube feeds will be continued as tolerated. 2. Distributive shock Likely secondary to acute infectious etiology coupled with the hemodynamic impact of sedative medication use. Continue vasopressor support to maintain mean arterial pressure at or above 65 mmHg. 3. Acute kidney injury Likely secondary to acute presentation/ATN in the setting of #1. Avoid nephrotoxic medications. Continue to monitor urine output. No indication for renal replacement therapy. TIME: 34 minutes of critical care time, independent of procedures, was spent addressing the patient's acute hypoxemic respiratory failure secondary to COVID- 19 pneumonia, acute kidney injury, distributive shock, review of all data and collaboration with the care team. Subjective Subjective The patient was seen and examined at the bedside this morning. Events from the last 24 hours have been reviewed. Today is vent day #3. The patient currently has a low-grade fever and remains on Edison-Synephrine to maintain hemodynamic stability. She remains on assist control mode of mechanical ventilation with an FiO2 requirement of 70% and PEEP of 10. She is sedated on propofol and fentanyl. She is currently tolerating tube feeds. The patient is currently documented to be overall net +7 L for the hospitalization. She remains on empiric broad-spectrum antimicrobials along with Decadron and therapeutic Lovenox (dose adjusted for renal function). She has completed her treatment course of remdesivir. White count is elevated at 17,000. Creatinine is worsened to 2.58 this morning. Objective Data Objective Data The patient's most recent lab work, culture data and imaging studies have all been personally reviewed. Rapid coronavirus antigen testing was positive on June 22. Sputum culture is positive for staph aureus. Vital Signs: Vital Signs Temp Pulse Resp BP Pulse Ox 100.1 F H 82 23 H 95/66 94 06/28/21 06:00 06/28/21 06:00 06/28/21 06:00 06/28/21 06:00 06/28/21 06:00 Oxygen Flow Rate (L/min) 60 Oxygen Delivery Method Mechanical Ventilator Weight: 68.4 kg Body Mass Index (BMI) 31.4 Intake & Output: Intake and Output for Last 24 Hours 06/26/21 06/27/21 06/28/21 23:59 23:59 23:59 Intake Total 1420.84 / 1476.84 3621.75 / 3746.55 776.47 / 776.47 Output Total 985 / 1110 475 / 475 40 / 40 Balance 435.84 / 366.84 3146.75 / 3271.55 736.47 / 736.47 Medical Nutrition Assessment Dietitian: Malnutrition Criteria Met Start: 06/25/21 11:25 Freq: Status: Active Protocol: Document 06/26/21 09:55 AG (Rec: 06/26/21 11:41 [id number]) Nutrition Malnutrition Evidence of Malnutrition Exists Yes Malnutrition (severe): Acute Illness/Injury Evidenced By Suboptimal Energy Intake ( Severe),Weight Loss (Severe) Clinical Problem Acute Disease or Injury Related Malnutrition Etiology severe, acute malnutrition r/t inadequate energy intake d/t COVID-19 Signs/Symptoms as evidenced by unintentional 3.688kg/5.2% wt loss x 4 days; estimated PO intake meeting < 50% of estimated energy needs x 5 days Status Active Problem Recommendation Dietitian Recommendations/Changes When medically indicated, recommend continue regular diet as tolerated w/ 4oz ensure compact w/ meals d/t acute malnutrition. If pt intubated, will provide enteral nutrition support recommendations/management as indicated. Lab / Micro Data Attestation: I reviewed the patient's lab results. Result Diagrams: 06/28/21 05:30 06/28/21 05:30 Labs: Laboratory Results - last 24 hr 06/27/21 09:10: D-Dimer Quant (PE/DVT) 13.93 H* 06/28/21 05:30: WBC 16.9 H, RBC 4.50, Hgb 13.1, Hct 42.1, MCV 93.6, MCH 29.1, MCHC 31.1 L, RDW Std Deviation 52.0 H, RDW Coeff of Kimberlee 15.2 H, Plt Count 186, MPV 11.1, Immature Gran % (Auto) 2.200 H, Neut % (Auto) 89.9 H, Lymph % (Auto) 5.9 L, [place] % (Auto) 1.5, Eos % (Auto) 0.1, Baso % (Auto) 0.4, Absolute Neuts (auto) 15.2 H, Absolute Lymphs (auto) 0.99, Nucleated RBC % 0.3 Micro: Microbiology 06/26/21 Unknown Sputum, Induced/Lukens Gram Stain - Final 06/26/21 Unknown Sputum, Induced/Lukens Respiratory Culture - Preliminary Staphylococcus aureus 06/22/21 13:18 Nasal Secretion SARS-CoV-2 Antigen (Rapid) - Final SARS-CoV-2 (COVID 19) ABG Data ABG results: ABG 06/27/21 09:13 Specimen Type ART Sample Site L Radial pH 7.26 L Bicarbonate Actual 19.0 L Total CO2 20 Base Excess -8 L O2 Saturation 87 L O2 % 100 ABG pCO2 42.7 ABG pO2 61 L Bernardino Test Positive Respiration Rate 16 O2 Delivery Device Adult Vent Vent Mode AC Tidal Volume 400 POC PEEP 10 Physical Exam Const General Appearance: ill appearing, intubated and patient mechanically ventilated Nutritional Appearance: obese HEENT normocephalic and head/scalp atraumatic Mouth: endotracheal tube in place and OG tube in place Eyes PERRL and EOMs intact bilaterally Neck supple General: trachea midline Chest Chest Narrative: + Crepitus Resp Auscultation: diminished lung sounds; Negative for rales, rhonchi or wheezes Cardio regular rate, regular rhythm, S1 normal heart sound and S2 normal heart sound GI normal to inspection, nondistended, normoactive bowel sounds Extremity no clubbing, cyanosis or edema Skin no rashes or lesions noted Neuro Sensorium / Orientation: sedated on vent Charges/Coding Procedures Hospitalists Procedures: 16464 Critial Care 1st Hr
[2021-06-28 06:59] LABS: ALB/GLOB Ratio 0.4 RATIO (0.9-2.4); AST(SGOT) 26 U/L (15-37); Alanine Aminotransfer ALT/SGPT 18 U/L (13-56); Albumin, Serum 1.6 g/dL (3.2-5.0); Alkaline Phosphatase 70 U/L (45-117); Anion Gap 11 (5-15); BUN 58 mg/dL (7-18); BUN/Creat Ratio 22.5 RATIO (10-20); Calcium,Total 7.4 mg/dL (8.5-10.1); Chloride 117 mmol/L (98-107); Creatinine, Serum 2.58 mg/dL (0.55-1.02); EST Glomerular Filtration Rate 19 mL/min (>60); Est Glom Filt Rate - Afr Amer 23 mL/min (>60); Estimated Creatinine Clearance 20.34 ml/min; Globulin 4.1 g/dL (2.2-4.2); Glucose 88 mg/dL (74-106); Potassium 4.8 mmol/L (3.5-5.1); Protein, Total 5.7 g/dL (6.4-8.2); Sodium Level 143 mmol/L (136-145)
--- NOTE | 2021-06-28 07:27 | PCM.RX.CS ---
Consult Pharmacy has been consulted to manage selected antiobiotic: Vancomycin Type of Consult: Follow-up Prior Doses of Antibiotics Received/Current Regimen: current dose is 1000mg IV q24h which was to start at 10:00 today. The patient received a dose of 1750mg X1 yesterday at 10:08. Labs: Sodium 143 mmol/L (136-145) 06/28/21 05:30 Potassium 4.8 mmol/L (3.5-5.1) 06/28/21 05:30 Chloride 117 mmol/L (98-107) H 06/28/21 05:30 Carbon Dioxide 15.0 mmol/L (21.0-32.0) L 06/28/21 05:30 Anion Gap 11 (5-15) 06/28/21 05:30 BUN 58 mg/dL (7-18) H 06/28/21 05:30 Creatinine 2.58 mg/dL (0.55-1.02) H 06/28/21 05:30 Est GFR (MDRD) Af Amer 23 mL/min (>60) L 06/28/21 05:30 Est GFR (MDRD) Non-Af 19 mL/min (>60) L 06/28/21 05:30 BUN/Creatinine Ratio 22.5 RATIO (10-20) H 06/28/21 05:30 Glucose 88 mg/dL (74-106) 06/28/21 05:30 Microbiology: Microbiology 06/26/21 Unknown Sputum, Induced/Lukens Gram Stain - Final 06/26/21 Unknown Sputum, Induced/Lukens Respiratory Culture - Preliminary Staphylococcus aureus 06/22/21 13:18 Nasal Secretion SARS-CoV-2 Antigen (Rapid) - Final SARS-CoV-2 (COVID 19) Weight used for dosin.4 kg Estimated Creatinine Clearance: 17 ml/min Goal Trough: 15-20 mcg/mL Pharmacy Plan for Drug Dosing: The patient's SCr went up to 2.58 today (up from 1.38 yesterday) and the CrCl is 17 so per protocol, will order a random vanc level today before the next dose of 1000mg would have been due. Since the patient's CrCl is now below 20, will dose off random levels for now. Pharmacy Service will continue to monitor and adjust dosing as required. Follow-Up Labs: Trough Vancomycin - random Labs to be done on [date and time ordered]: 06/28/21 10:00
--- NOTE | 2021-06-28 08:41 | NURSING ---
yellow colored ring with multi colored stones taken off ring finger on left hand d/t finger edema. 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
[2021-06-28] MEDS: CHLORHEXIDINE GLUC 2% CLOTH 1 EACH TOWELETTE TOPICAL (08:44)
[2021-06-28] MEDS: dexAMETHasone 10 MG/ML Vial 6 MG IV (08:44)
[2021-06-28] MEDS: Nystatin Ointment 1 APPLIC TOPICAL ×2 (08:45→21:34)
[2021-06-28] MEDS: Enoxaparin 60 MG/0.6 ML Syringe SC (08:45)
[2021-06-28] MEDS: Senna/Docusate Sodium 1 Tablet 2 TABLET PO ×2 (09:45→21:35)
[2021-06-28] MEDS: Chlorhexidine 15 ML PO ×2 (09:46→21:34)
[2021-06-28] MEDS: Polyethylene Glycol 3350 17 GM PACKET PO (09:46)
[2021-06-28] MEDS: 0.9% Saline Lock 10 ML Syringe IV (10:52)
[2021-06-28 11:54] LABS: Vancomycin, Random Level 16.7 ug/mL (0.0-15.0)
--- NOTE | 2021-06-28 12:06 | PCM.RX.CS ---
Consult Pharmacy has been consulted to manage selected antiobiotic: Vancomycin Type of Consult: Follow-up Prior Doses of Antibiotics Received/Current Regimen: the patient received 1750mg x1 dose on 06/27 at 10:08, then had been ordered 1000mg q24h but that was held due to a decrease in renal function before the first dose this morning Labs: Sodium 143 mmol/L (136-145) 06/28/21 05:30 Potassium 4.8 mmol/L (3.5-5.1) 06/28/21 05:30 Chloride 117 mmol/L (98-107) H 06/28/21 05:30 Carbon Dioxide 15.0 mmol/L (21.0-32.0) L 06/28/21 05:30 Anion Gap 11 (5-15) 06/28/21 05:30 BUN 58 mg/dL (7-18) H 06/28/21 05:30 Creatinine 2.58 mg/dL (0.55-1.02) H 06/28/21 05:30 Est GFR (MDRD) Af Amer 23 mL/min (>60) L 06/28/21 05:30 Est GFR (MDRD) Non-Af 19 mL/min (>60) L 06/28/21 05:30 BUN/Creatinine Ratio 22.5 RATIO (10-20) H 06/28/21 05:30 Glucose 88 mg/dL (74-106) 06/28/21 05:30 Random Vancomycin 16.7 ug/mL (0.0-15.0) H 06/28/21 10:50 Microbiology: Microbiology 06/26/21 Unknown Sputum, Induced/Lukens Gram Stain - Final 06/26/21 Unknown Sputum, Induced/Lukens Respiratory Culture - Final Meth. resistant Staph. aureus 06/22/21 13:18 Nasal Secretion SARS-CoV-2 Antigen (Rapid) - Final SARS-CoV-2 (COVID 19) Weight used for dosin.4 kg Estimated Creatinine Clearance: 17 ml/min Goal Trough: 15-20 mcg/mL Pharmacy Plan for Drug Dosing: The vanc random level drawn at 10:50 came back as 16.7. This is below 20 so will give a one-time dose of 1000mg today based on the patient's weight. Will continue to dose off random levels since the patient's CrCl is < 20. Will enter a random level to be drawn tomorrow morning with AM labs. Pharmacy Service will continue to monitor and adjust dosing as required. Follow-Up Labs: Trough Vancomycin - random Labs to be done on [date and time ordered]: 06/29/21 06:00
[2021-06-28] MEDS: Vancomycin IV 1,000 MG/200 ML BAG 200 MG IV (12:43)
--- NOTE | 2021-06-28 13:21 | PN.HOSP_ITS ---
Subjective Subjective Patient was seen and examined today, she remains sedated and on the ventilator, nursing states her urine output has been low. Objective Data Objective Data Vital Signs: Vital Signs Temp Pulse Resp BP Pulse Ox 98.4 F 106 H 16 83/64 L 95 06/28/21 12:00 06/28/21 13:02 06/28/21 13:02 06/28/21 13:02 06/28/21 13:02 Oxygen Flow Rate (L/min) 60 Oxygen Delivery Method Mechanical Ventilator Weight: 68.4 kg Body Mass Index (BMI) 31.4 Intake & Output: Intake and Output for Last 24 Hours 06/26/21 06/27/21 06/28/21 23:59 23:59 23:59 Intake Total 1420.84 / 1476.84 3621.75 / 3746.55 1705.53 / 1705.53 Output Total 985 / 1110 475 / 475 1070 / 1070 Balance 435.84 / 366.84 3146.75 / 3271.55 635.53 / 635.53 Medical Nutrition Assessment Dietitian: Malnutrition Criteria Met Start: 06/25/21 11:25 Freq: Status: Active Protocol: Document 06/28/21 10:09 TATA (Rec: 06/28/21 10:09 [facility] [id number]) Nutrition Malnutrition Evidence of Malnutrition Exists Yes Malnutrition (severe): Acute Illness/Injury Evidenced By Suboptimal Energy Intake ( Severe),Weight Loss (Severe) Clinical Problem Acute Disease or Injury Related Malnutrition Etiology severe, acute malnutrition r/t inadequate energy intake d/t COVID-19 Signs/Symptoms as evidenced by unintentional ~5% wt loss x 5 days; estimated PO intake meeting < 50% of estimated energy needs > 5 days Status Active Problem Recommendation Dietitian Recommendations/Changes NPO while intubated; Via OGT- Vital AF 1.2 at goal rate of 55mL/hour w/100mL H2O flush every 4 hours to provide 1584 calories, 99 g protein, and 1670mL total fluid/day. Would start at 20mL/hour and increase by 15mL/hour every 8- 12 hours as tolerated until goal rate is achieved. Lab / Micro Data Result Diagrams: 06/28/21 05:30 06/28/21 05:30 Labs: Laboratory Results - last 24 hr 06/28/21 05:30: WBC 16.9 H, RBC 4.50, Hgb 13.1, Hct 42.1, MCV 93.6, MCH 29.1, MCHC 31.1 L, RDW Std Deviation 52.0 H, RDW Coeff of Kimberlee 15.2 H, Plt Count 186, MPV 11.1, Immature Gran % (Auto) 2.200 H, Neut % (Auto) 89.9 H, Lymph % (Auto) 5.9 L, Nash % (Auto) 1.5, Eos % (Auto) 0.1, Baso % (Auto) 0.4, Absolute Neuts (auto) 15.2 H, Absolute Lymphs (auto) 0.99, Nucleated RBC % 0.3 06/28/21 05:30: Sodium 143, Potassium 4.8, Chloride 117 H, Carbon Dioxide 15.0 L , Anion Gap 11, BUN 58 H, Creatinine 2.58 H, Estim Creat Clear Calc 20.34, Est GFR (MDRD) Af Amer 23 L, Est GFR (MDRD) Non-Af 19 L, BUN/Creatinine Ratio 22.5 H , Glucose 88, Calcium 7.4 L, Total Bilirubin 0.70, AST 26, ALT 18, Alkaline Phosphatase 70, Total Protein 5.7 L, Albumin 1.6 L, Globulin 4.1, Albumin/Globulin Ratio 0.4 L 06/28/21 10:50: Random Vancomycin 16.7 H Micro: Microbiology 06/26/21 Unknown Sputum, Induced/Lukens Gram Stain - Final 06/26/21 Unknown Sputum, Induced/Lukens Respiratory Culture - Final Meth. resistant Staph. aureus 06/22/21 13:18 Nasal Secretion SARS-CoV-2 Antigen (Rapid) - Final SARS-CoV-2 (COVID 19) Physical Exam Narrative Constitutional Narrative: Patient is sedated and on the ventilator General Appearance: well kempt and well developed Orientation / Consciousness: Patient is sedated and on the ventilator normocephalic and head/scalp atraumatic Head and Scalp: normocephalic Neck nuchal rigidity, no JVD and thyroid normal General: trachea midline Resp normal respiratory effort, no retractions, no use of accessory muscles and clear to auscultation bilaterally Resp Narrative: There is crepitance noted over the patient's chest wall to palpation extending up into the neck area Auscultation: Negative for rales, rhonchi or wheezes Cardio regular rate, regular rhythm, S1 normal heart sound, S2 normal heart sound, no murmurs, no rub and no gallops GI normal to inspection, nondistended, normoactive bowel sounds Extremity normal to inspection and no clubbing, cyanosis or edema Skin no rashes or lesions noted General Skin Exam: no breakdown Neuro Neuro Narrative: Patient is sedated and on the ventilator Psych Narrative: Patient is sedated and on the ventilator Assessment & Plan Assessment/Plan (1) COVID-19: (2) Acute hypoxemic respiratory failure due to COVID-19: PLAN: 1. COVID-19 pneumonia-patient is currently on dexamethasone and remdesivir, patient is on the ventilator at this time #2 acute hypoxic respiratory failure-pulse ox will be monitored, patient is currently on the ventilator, patient is currently on empiric antibiotic coverage #3 acute kidney injury-patient appears to have a backdrop of chronic kidney disease stage IIIb-labs will be monitored-I expect her kidney function to worsen #4 Pneumomediastinum-supportive measures, attempt to readjust vent #5 elevated [id number] medicine recommends full dose Lovenox at this time, patient is already on full dose Lovenox Prognosis remains poor Charges/Coding Visit Charges Inpatient E&M: 81687 Subs Hosp L2
[2021-06-29] VITALS (40 sets, daily range): BP systolic 77–114; BP diastolic 58–79; PULSE 58–182; RESP 16–25; TEMP 36.4–36.9; O2SAT 88–98
--- NOTE | 2021-06-29 05:00 | EKG12_ITS ---
Test Reason : Blood Pressure : / mmHG Vent. Rate : 154 BPM Atrial Rate : 220 BPM P-R Int : 000 ms QRS Dur : 108 ms QT Int : 240 ms P-R-T Axes : 000 -15 244 degrees QTc Int : 384 ms Atrial fibrillation with rapid ventricular response Inferior infarct, age undetermined, cannot be excluded Anterior infarct , age undetermined , cannot be excluded Nonspecific ST and T wave abnormality Abnormal ECG Confirmed by JESUS PENA, VLADIMIR ([id number]), purchasing expeditor HANNAH HARRISON ([id number]) on 07/10/2021 8:09:52 AM Referred By: JOELLE Confirmed By:VLADIMIR LEE MD
--- NOTE | 2021-06-29 05:09 | EKG12_ITS ---
Test Reason : RHYTHM CHANGE Blood Pressure : / mmHG Vent. Rate : 089 BPM Atrial Rate : 089 BPM P-R Int : 120 ms QRS Dur : 050 ms QT Int : 398 ms P-R-T Axes : 084 -17 123 degrees QTc Int : 484 ms Normal sinus rhythm Inferior infarct , possibly acute Right bundle branch block Abnormal ECG When compared with ECG of 22-JUN-2021 13:21, Right bundle branch block is no longer Present Acute Anterior infarct is now Present Inferior infarct is now Present Confirmed by FROY PENA, NIYAH ([id number]), art editor HANNAH HARRISON ([id number]) on 07/11/2021 8:11:37 AM Referred By: JAQUI ESPOSITO Confirmed By:JOSEF MCDUFFIE MD
--- NOTE | 2021-06-29 05:11 | EKG12_ITS ---
Test Reason : RHYTHM CHANGE Blood Pressure : / mmHG Vent. Rate : 084 BPM Atrial Rate : 084 BPM P-R Int : 132 ms QRS Dur : 034 ms QT Int : 354 ms P-R-T Axes : 019 -03 124 degrees QTc Int : 418 ms Sinus rhythm with marked sinus arrhythmia with occasional Premature ventricular complexes Low voltage QRS Right bundle branch block Abnormal ECG When compared with ECG of 29-JUN-2021 05:11, MANUAL COMPARISON REQUIRED, DATA IS UNCONFIRMED Confirmed by FROY PENA, NIYAH ([id number]), video news editor HANNAH HARRISON ([id number]) on 07/11/2021 8:12:29 AM Referred By: JAQUI ESPOSITO Confirmed By:JOSEF MCDUFFIE MD
--- NOTE | 2021-06-29 05:11 | EKG12_ITS ---
Test Reason : RHYTHM CHANGE Blood Pressure : / mmHG Vent. Rate : 089 BPM Atrial Rate : 089 BPM P-R Int : 110 ms QRS Dur : 066 ms QT Int : 388 ms P-R-T Axes : 049 -14 087 degrees QTc Int : 472 ms Sinus rhythm with short NE with frequent Premature ventricular complexes Low voltage QRS Right bundle branch block Abnormal ECG When compared with ECG of 29-JUN-2021 05:09, MANUAL COMPARISON REQUIRED, DATA IS UNCONFIRMED Confirmed by FROY PENA, NIYAH ([id number]), commercial production editor HANNAH HARRISON ([id number]) on 07/11/2021 8:12:03 AM Referred By: JAQUI ESPOSITO Confirmed By:JOSEF MCDUFFIE MD
--- NOTE | 2021-06-29 05:26 | EKG12_ITS ---
Test Reason : RHYTHM CHANGE Blood Pressure : / mmHG Vent. Rate : 171 BPM Atrial Rate : 127 BPM P-R Int : 000 ms QRS Dur : 052 ms QT Int : 272 ms P-R-T Axes : 000 -10 -09 degrees QTc Int : 458 ms Supraventricular tachycardia Right bundle branch block Abnormal ECG When compared with ECG of 29-JUN-2021 05:26, MANUAL COMPARISON REQUIRED, DATA IS UNCONFIRMED Confirmed by FROY PENA, NIYAH ([id number]), supervising editor news reel HANNAH HARRISON ([id number]) on 07/11/2021 8:13:01 AM Referred By: JAQUI ESPOSITO Confirmed By:JOSEF MCDUFFIE MD
--- NOTE | 2021-06-29 05:30 | EKG12_ITS ---
Test Reason : Blood Pressure : / mmHG Vent. Rate : 112 BPM Atrial Rate : 112 BPM P-R Int : 072 ms QRS Dur : 142 ms QT Int : 384 ms P-R-T Axes : 008 -56 016 degrees QTc Int : 524 ms Sinus tachycardia with short OH with Premature atrial complexes Left axis deviation Non-specific intra-ventricular conduction block Abnormal ECG When compared with ECG of 30-JUN-2021 18:35, MANUAL COMPARISON REQUIRED, DATA IS UNCONFIRMED Confirmed by FROY PENA, NIYAH ([id number]), magazine editor HANNAH HARRISON ([id number]) on 07/11/2021 8:05:08 AM Referred By: JOELLE Confirmed By:JOSEF MCDUFFIE MD
--- NOTE | 2021-06-29 06:10 | PN.CC_ITS ---
Assessment & Plan Assessment/Plan (1) Acute hypoxemic respiratory failure due to COVID-19: (2) COVID-19: PLAN: RECOMMENDATIONS: 1. Continue patient on assist control and wean FiO2/PEEP for saturations greater than 90%. 2. Continue vancomycin. Okay to discontinue cefepime 3. Continue therapeutic Lovenox (dose adjusted for renal function) 4. Continue Decadron to complete 10 days of therapy. 5. Attempt to resume tube feeds if feasible. 6. Continue appropriate GI prophylaxis. 7. Continue vasopressor support to maintain a mean arterial pressure at or above 65 mmHg. 8. Obtain nephrology consultation. 9. Obtain repeat chest x-ray. IMPRESSIONS: 1. Acute hypoxemic respiratory failure secondary to COVID-19/MRSA pneumonia The patient was initially admitted to the hospital on June 22 with COVID-19 pneumonia. Her hospital course has been complicated by worsening respiratory status, culminating in transfer to the ICU on June 24 to be placed on noninvasive positive pressure ventilatory support. Unfortunately, the patient failed to improve on continuous BiPAP support and required intubation on June 26. She will be continued on assist control mode mechanical ventilation. FiO2 and PEEP will be weaned for saturations greater than 90%. In the interim, plan to continue current supportive measures decadron and Lovenox as ordered. Although her initial CTA chest was negative for PE, follow-up D- dimer was notably elevated at 14. Therefore, the patient will be continued on therapeutic Lovenox. In addition, given her clinical decompensation, empiric antimicrobials were initiated. Tube feeds will be continued as tolerated. 2. Distributive shock Likely secondary to acute infectious etiology coupled with the hemodynamic impact of sedative medication use. Continue vasopressor support to maintain mean arterial pressure at or above 65 mmHg. 3. SVT/Atrial Fibrillation The patient appears to be in atrial fibrillation with a rapid ventricular rate. Will administer amiodarone and place her on a drip. Check troponin as well. 4. Acute kidney injury Worsening. Likely secondary to acute presentation/ATN in the setting of #1. Avoid nephrotoxic medications. Continue to monitor urine output. Given interval worsening in renal function, will obtain nephrology consultation. TIME: 36 minutes of critical care time, independent of procedures, was spent addressing the patient's acute hypoxemic respiratory failure secondary to COVID- 19 pneumonia, acute kidney injury, distributive shock, atrial fibrillation, review of all data and collaboration with the care team. Subjective Subjective The patient was seen and examined at the bedside this morning. Events from the last 24 hours have been reviewed. Today is day #4. The patient is currently afebrile. She remains hemodynamically stable on Levophed at 10 mcg/m in. The patient is sedated on propofol and fentanyl. She remains on assist control mode of mechanical ventilation with an FiO2 requirement of 50% and PEEP of 8. The patient did have frequent episodes of SVT overnight. Her tube feeds are currently on hold due to high residuals. The patient is documented to be overall net +7.8 L for the hospitalization. Creatinine is increased to 3.4 this morning. Objective Data Objective Data The patient's most recent lab work, culture data and imaging studies have all been personally reviewed. Rapid coronavirus antigen testing was positive on June 22. Sputum culture is positive for MRSA. Vital Signs: Vital Signs Temp Pulse Resp BP Pulse Ox 98.3 F 89 16 81/67 L 90 06/29/21 04:00 06/29/21 04:35 06/29/21 04:35 06/29/21 04:00 06/29/21 04:35 Oxygen Flow Rate (L/min) 60 Oxygen Delivery Method Mechanical Ventilator Weight: 68.4 kg Body Mass Index (BMI) 31.4 Intake & Output: Intake and Output for Last 24 Hours 06/27/21 06/28/21 06/29/21 23:59 23:59 23:59 Intake Total 3621.75 / 3746.55 2474.59 / 2519.69 194.42 / 194.42 Output Total 475 / 475 1120 / 1145 25 / 25 Balance 3146.75 / 3271.55 1354.59 / 1374.69 169.42 / 169.42 Medical Nutrition Assessment Dietitian: Malnutrition Criteria Met Start: 06/25/21 11:25 Freq: Status: Active Protocol: Document 06/28/21 10:09 TATA (Rec: 06/28/21 10:09 TATA [id number]) Nutrition Malnutrition Evidence of Malnutrition Exists Yes Malnutrition (severe): Acute Illness/Injury Evidenced By Suboptimal Energy Intake ( Severe),Weight Loss (Severe) Clinical Problem Acute Disease or Injury Related Malnutrition Etiology severe, acute malnutrition r/t inadequate energy intake d/t COVID-19 Signs/Symptoms as evidenced by unintentional ~5% wt loss x 5 days; estimated PO intake meeting < 50% of estimated energy needs > 5 days Status Active Problem Recommendation Dietitian Recommendations/Changes NPO while intubated; Via OGT- Vital AF 1.2 at goal rate of 55mL/hour w/100mL H2O flush every 4 hours to provide 1584 calories, 99 g protein, and 1670mL total fluid/day. Would start at 20mL/hour and increase by 15mL/hour every 8- 12 hours as tolerated until goal rate is achieved. Lab / Micro Data Attestation: I reviewed the patient's lab results. Result Diagrams: 06/29/21 03:33 06/29/21 03:33 Labs: Laboratory Results - last 24 hr 06/28/21 05:30: Sodium 143, Potassium 4.8, Chloride 117 H, Carbon Dioxide 15.0 L , Anion Gap 11, BUN 58 H, Creatinine 2.58 H, Estim Creat Clear Calc 20.34, Est GFR (MDRD) Af Amer 23 L, Est GFR (MDRD) Non-Af 19 L, BUN/Creatinine Ratio 22.5 H , Glucose 88, Calcium 7.4 L, Total Bilirubin 0.70, AST 26, ALT 18, Alkaline Phosphatase 70, Total Protein 5.7 L, Albumin 1.6 L, Globulin 4.1, Albumin/Globul in Ratio 0.4 L 06/28/21 10:50: Random Vancomycin 16.7 H Micro: Microbiology 06/26/21 Unknown Sputum, Induced/Lukens Gram Stain - Final 06/26/21 Unknown Sputum, Induced/Lukens Respiratory Culture - Final Meth. resistant Staph. aureus 06/22/21 13:18 Nasal Secretion SARS-CoV-2 Antigen (Rapid) - Final SARS-CoV-2 (COVID 19) Radiography Diagnostic Testing: Radiology Impression Chest X-Ray 06/27/21 08:26 IMPRESSION: 1. Persistent but decreasing bibasilar infiltrates. 2. Similar subcutaneous emphysema of the right neck/chest. Electronically Signed: Silviano Burton MD (Brooks) at 9:19 EST , Service support , Physical Exam Const General Appearance: ill appearing, intubated and patient mechanically ventilated Nutritional Appearance: obese HEENT normocephalic and head/scalp atraumatic Mouth: endotracheal tube in place and OG tube in place Eyes PERRL and EOMs intact bilaterally Neck supple General: trachea midline Chest Chest Narrative: + Crepitus Resp Effort and Inspection: tachypneic Auscultation: diminished lung sounds; Negative for rales, rhonchi or wheezes Cardio S1 normal heart sound and S2 normal heart sound Cardio Narrative: Frequent SVT on telemetry Rate: tachycardic Rhythm: abnormal rhythm GI normal to inspection, nondistended, normoactive bowel sounds Extremity no clubbing, cyanosis or edema Skin no rashes or lesions noted Neuro Sensorium / Orientation: sedated on vent Charges/Coding Procedures Hospitalists Procedures: 70874 Critial Care 1st Hr
[2021-06-29 06:15] LABS: Hematocrit 39.4 % (37-47); Hemoglobin 12.5 g/dL (12.0-15.0); Mean Corp Hgb Conc 31.7 g/dL (32-36); Mean Corpuscular Hgb 29.5 pg (27.0-32.0); Mean Corpuscular Volume 92.9 fL (81-99); POSITIVE COUNT YES; POSITIVE DIFFERENTIAL YES; POSITIVE MORPHOLOGY YES; Platelet Count 164 K/mm3 (150-450); RBC Distribution Width CV 15.5 % (11.6-14.6); RBC Distribution Width SD 53.1 fl (35.1-43.9); Red Blood Count 4.24 M/mm3 (4.2-5.4); White Blood Count 14.2 K/mm3 (4.4-11.0)
[2021-06-29 06:20] LABS: Differential Indicated MANUAL DIFF
[2021-06-29 06:24] LABS: ALB/GLOB Ratio 0.3 RATIO (0.9-2.4); AST(SGOT) 76 U/L (15-37); Alanine Aminotransfer ALT/SGPT 31 U/L (13-56); Albumin, Serum 1.4 g/dL (3.2-5.0); Alkaline Phosphatase 81 U/L (45-117); Anion Gap 9 (5-15); BUN 74 mg/dL (7-18); BUN/Creat Ratio 21.8 RATIO (10-20); Calcium,Total 7.6 mg/dL (8.5-10.1); Chloride 116 mmol/L (98-107); EST Glomerular Filtration Rate 14 mL/min (>60); Est Glom Filt Rate - Afr Amer 17 mL/min (>60); Estimated Creatinine Clearance 15.44 ml/min; Globulin 4.3 g/dL (2.2-4.2); Glucose 101 mg/dL (74-106); Magnesium 2.3 mg/dL (1.6-2.6); Phosphorus 5.3 mg/dL (2.5-4.9); Potassium 4.9 mmol/L (3.5-5.1); Protein, Total 5.7 g/dL (6.4-8.2); Sodium Level 141 mmol/L (136-145)
[2021-06-29 06:54] LABS: Troponin-I HS 164 pg/mL (3.0-54.0)
[2021-06-29 07:07] LABS: Absolute Lymphocyte Count 0.17 X10^3/uL (0.83-4.51); Absolute Neutrophil Count 12.4 X10^3/uL (2.0-7.7); Eosinophil 2 % (0-5); Lymphocyte 4 % (19-41); Metamyelocyte 4 % (0-1); Monocyte 1 % (0-10); Myelocyte 2 % (0-0); Neutrophil-Band 53 % (0-5); Neutrophil-Segmented 34 % (47-70); Total Cells Counted 100 (MANUAL DIFF)
[2021-06-29 07:08] LABS: Anisocytosis 1+; Platelet Estimate ADEQUATE (ADEQ); Red Cell Morphology NORM C+C NORMAL (NORM C&C)
--- NOTE | 2021-06-29 07:39 | RAD_ITS ---
EXAM: XR CHEST, 1 VIEW CLINICAL INDICATION: Respiratory Failure TECHNIQUE: Frontal view of the chest. This report was created using [employer] report generation technology. COMPARISON: 06/27/2021. FINDINGS: LUNGS AND PLEURAL SPACES: Minimal interstitial infiltrates in the right upper lobe and left lower lobe are unchanged. No pneumothorax. No effusion. HEART: Unremarkable. Cardiac silhouette not enlarged. MEDIASTINUM: Central airways and mediastinal contour are unremarkable. BONES/JOINTS: Left metallic shoulder arthroplasty is unchanged. SOFT TISSUES: Soft tissue air emphysema in the right neck base is unchanged. TUBES, LINES AND DEVICES: Right PICC line catheter tip remains in the SVC. ET tube tip is 5 cm above the tameka and unchanged. NG tube tip and sidehole are inside the gastric cavity. RAD/Chest 1 View (Portable) IMPRESSION: No interval change. Electronically Signed: Grey Gunderson MD at 8:37 EST , Service support ,
[2021-06-29] MEDS: Menthol/Lanolin/Calamine/Znox 113 GM Tube 1 APPLIC TOPICAL ×3 (07:51→20:20)
[2021-06-29 07:59] LABS: Vancomycin, Random Level 23.9 ug/mL (0.0-15.0)
[2021-06-29] MEDS: TITRATION PARAMETER CHANGE 1 EACH IV (08:07)
[2021-06-29] MEDS: CHLORHEXIDINE GLUC 2% CLOTH 1 EACH TOWELETTE TOPICAL (08:13)
--- NOTE | 2021-06-29 08:18 | EKG12_ITS ---
Test Reason : RHYTHM CHANGE Blood Pressure : / mmHG Vent. Rate : 095 BPM Atrial Rate : 049 BPM P-R Int : 000 ms QRS Dur : 046 ms QT Int : 316 ms P-R-T Axes : 000 004 117 degrees QTc Int : 397 ms Sinus rhythm with PAC's Low voltage QRS Abnormal ECG When compared with ECG of 29-JUN-2021 05:28, MANUAL COMPARISON REQUIRED, DATA IS UNCONFIRMED Confirmed by FROY PENA, NIYAH ([id number]), editor in chief HANNAH HARRISON ([id number]) on 07/11/2021 8:08:11 AM Referred By: JAQUI ESPOSITO Confirmed By:JOSEF MCDUFFIE MD
--- NOTE | 2021-06-29 09:25 | PN.HOSP_ITS ---
Subjective Subjective Patient was seen and examined in the ICU today, she remains sedated and on the ventilator. Objective Data Objective Data Vital Signs: Vital Signs Temp Pulse Resp BP Pulse Ox 98 F 135 H 18 100/74 96 06/29/21 08:00 06/29/21 09:08 06/29/21 09:08 06/29/21 09:08 06/29/21 09:08 Oxygen Flow Rate (L/min) 60 Oxygen Delivery Method Mechanical Ventilator Weight: 69.7 kg Body Mass Index (BMI) 31.4 Intake & Output: Intake and Output for Last 24 Hours 06/27/21 06/28/21 06/29/21 23:59 23:59 23:59 Intake Total 3621.75 / 3746.55 2474.59 / 2519.69 440.93 / 440.93 Output Total 475 / 475 1120 / 1145 Balance 3146.75 / 3271.55 1354.59 / 1374.69 415.93 / 415.93 Medical Nutrition Assessment Dietitian: Malnutrition Criteria Met Start: 06/25/21 11:25 Freq: Status: Active Protocol: Document 06/28/21 10:09 TATA (Rec: 06/28/21 10:09 TATA [id number]) Nutrition Malnutrition Evidence of Malnutrition Exists Yes Malnutrition (severe): Acute Illness/Injury Evidenced By Suboptimal Energy Intake ( Severe),Weight Loss (Severe) Clinical Problem Acute Disease or Injury Related Malnutrition Etiology severe, acute malnutrition r/t inadequate energy intake d/t COVID-19 Signs/Symptoms as evidenced by unintentional ~5% wt loss x 5 days; estimated PO intake meeting < 50% of estimated energy needs > 5 days Status Active Problem Recommendation Dietitian Recommendations/Changes NPO while intubated; Via OGT- Vital AF 1.2 at goal rate of 55mL/hour w/100mL H2O flush every 4 hours to provide 1584 calories, 99 g protein, and 1670mL total fluid/day. Would start at 20mL/hour and increase by 15mL/hour every 8- 12 hours as tolerated until goal rate is achieved. Lab / Micro Data Result Diagrams: 06/29/21 03:33 06/29/21 03:33 Labs: Laboratory Results - last 24 hr 06/28/21 10:50: Random Vancomycin 16.7 H 06/29/21 03:33: Troponin I High Sens 164 H* 06/29/21 03:33: WBC 14.2 H, RBC 4.24, Hgb 12.5, Hct 39.4, MCV 92.9, MCH 29.5, MCHC 31.7 L, RDW Std Deviation 53.1 H, RDW Coeff of Kimberlee 15.5 H, Plt Count 164, MPV 12.0, Neut % (Auto) Not Reportable, Absolute Neuts (auto) 12.4 H, Absolute Lymphs (auto) 0.17 L, Total Counted 100, Neutrophils % (Manual) 34 L, Band Neutrophils % 53 H, Lymphocytes % (Manual) 4 L, Monocytes % (Manual) 1, Eosinop hils % (Manual) 2, Metamyelocytes % 4 H, Myelocytes % 2 H, Diff Path Review October, Platelet Estimate ADEQUATE, RBC Morphology NORM C+C, Anisocytosis 1+ 06/29/21 03:33: Sodium 141, Potassium 4.9, Chloride 116 H, Carbon Dioxide 16.0 L , Anion Gap 9, BUN 74 H, Creatinine 3.40 H, Estim Creat Clear Calc 15.44, Est GFR (MDRD) Af Amer 17 L, Est GFR (MDRD) Non-Af 14 L, BUN/Creatinine Ratio 21.8 H , Glucose 101, Calcium 7.6 L, Phosphorus 5.3 H, Magnesium 2.3, Total Bilirubin 0.90, AST 76 H, ALT 31, Alkaline Phosphatase 81, Total Protein 5.7 L, Albumin 1.4 L, Globulin 4.3 H, Albumin/Globulin Ratio 0.3 L 06/29/21 06:40: Random Vancomycin 23.9 H Micro: Microbiology 06/26/21 Unknown Sputum, Induced/Lukens Gram Stain - Final 06/26/21 Unknown Sputum, Induced/Lukens Respiratory Culture - Final Meth. resistant Staph. aureus 06/22/21 13:18 Nasal Secretion SARS-CoV-2 Antigen (Rapid) - Final SARS-CoV-2 (COVID 19) Radiography Diagnostic Testing: Radiology Impression Chest X-Ray 06/27/21 08:26 IMPRESSION: 1. Persistent but decreasing bibasilar infiltrates. 2. Similar subcutaneous emphysema of the right neck/chest. Electronically Signed: Silviano Burton MD (Brooks) at 9:19 EST , Service support , Chest X-Ray 06/29/21 07:39 IMPRESSION: No interval change. Electronically Signed: Grey Gunderson MD at 8:37 EST , Service support , Physical Exam Narrative constitutional Narrative: Patient is sedated and on the ventilator General Appearance: well kempt and well developed Orientation / Consciousness: Patient is sedated and on the ventilator normocephalic and head/scalp atraumatic Head and Scalp: normocephalic Neck nuchal rigidity, no JVD and thyroid normal General: trachea midline Resp normal respiratory effort, no retractions, no use of accessory muscles and clear to auscultation bilaterally Resp Narrative: There is crepitance noted over the patient's chest wall to palpation extending up into the neck area Auscultation: Negative for rales, rhonchi or wheezes Cardio regular rate, regular rhythm, S1 normal heart sound, S2 normal heart sound, no murmurs, no rub and no gallops GI normal to inspection, nondistended, normoactive bowel sounds Extremity normal to inspection and no clubbing, cyanosis or edema Skin no rashes or lesions noted General Skin Exam: no breakdown Neuro Neuro Narrative: Patient is sedated and on the ventilator Psych Narrative: Patient is sedated and on the ventilator Assessment & Plan Assessment/Plan (1) COVID-19: (2) Acute hypoxemic respiratory failure due to COVID-19: PLAN: 1. COVID-19 pneumonia-patient is currently on dexamethasone and remdesivir, patient is on the ventilator at this time #2 acute hypoxic respiratory failure-pulse ox will be monitored, patient is currently on the ventilator, patient is currently on empiric antibiotic coverage #3 acute kidney injury-patient appears to have a backdrop of chronic kidney disease stage IIIb-labs will be monitored-patient's kidney function is worse than yesterday #4 Pneumomediastinum-supportive measures, attempt to readjust vent #5 elevated [id number] medicine recommends full dose Lovenox at this time, patient is already on full dose Lovenox #6 severe protein and caloric malnutrition related to inadequate energy intake and COVID-19 pneumonia as evidenced by approximately 5% weight loss in 5 days, estimated p.o. intake meeting less than 50% of estimated energy needs greater than 5 days, nutritional services is seeing the patient, she is currently on enteral feedings with OGT vital AF 1.5 at a goal rate of 55 cc/h with 100 cc water flush every 4 hours to provide 1584 lee, 99% grams of protein and 1670 mL of total fluid per day. Prognosis remains poor Charges/Coding Visit Charges Inpatient E&M: 38772 Subs Hosp L2
[2021-06-29] MEDS: Chlorhexidine 15 ML PO ×2 (10:32→21:35)
[2021-06-29] MEDS: Nystatin Ointment 1 APPLIC TOPICAL ×2 (10:33→20:20)
[2021-06-29] MEDS: Polyethylene Glycol 3350 17 GM PACKET PO (10:36)
[2021-06-29] MEDS: dexAMETHasone 10 MG/ML Vial 6 MG IV (10:36)
[2021-06-29] MEDS: Enoxaparin 60 MG/0.6 ML Syringe SC (10:36)
[2021-06-29] MEDS: Senna/Docusate Sodium 1 Tablet 2 TABLET PO ×2 (10:36→20:21)
[2021-06-29] MEDS: Vital AF 1.2 Cal Liquid 1,000 ML 55 ML GT (12:21)
--- NOTE | 2021-06-29 17:54 | PCM.RX.CS ---
Consult Pharmacy has been consulted to manage selected antiobiotic: Vancomycin Type of Consult: Follow-up Labs: Sodium 141 mmol/L (136-145) 06/29/21 03:33 Potassium 4.9 mmol/L (3.5-5.1) 06/29/21 03:33 Chloride 116 mmol/L (98-107) H 06/29/21 03:33 Carbon Dioxide 16.0 mmol/L (21.0-32.0) L 06/29/21 03:33 Anion Gap 9 (5-15) 06/29/21 03:33 BUN 74 mg/dL (7-18) H 06/29/21 03:33 Creatinine 3.40 mg/dL (0.55-1.02) H 06/29/21 03:33 Est GFR (MDRD) Af Amer 17 mL/min (>60) L 06/29/21 03:33 Est GFR (MDRD) Non-Af 14 mL/min (>60) L 06/29/21 03:33 BUN/Creatinine Ratio 21.8 RATIO (10-20) H 06/29/21 03:33 Glucose 101 mg/dL (74-106) 06/29/21 03:33 Random Vancomycin 23.9 ug/mL (0.0-15.0) H 06/29/21 06:40 Microbiology: Microbiology 06/26/21 Unknown Sputum, Induced/Lukens Gram Stain - Final 06/26/21 Unknown Sputum, Induced/Lukens Respiratory Culture - Final Meth. resistant Staph. aureus 06/22/21 13:18 Nasal Secretion SARS-CoV-2 Antigen (Rapid) - Final SARS-CoV-2 (COVID 19) Goal Trough: 15-20 mcg/mL Pharmacy Plan for Drug Dosing: VANCOMYCIN LEVEL RECEIVED Current Vancomycin Dose: renal dosing--last dose was 1000mg x1 Number of Doses Received: x1 on 06/28/21 at 1243 Vancomycin Level: random level was 23.9 Hours Since Last Dose: 18 Renal Function: SrCr 3.40 Renal Function Trend: SrCr increased from 2.58 on 06/28/21 Lab/Micro: Vancomycin Plan/Comments: recommend holding further Vancomycin doses today, 06/29/21, due to elevated trough. will check another random level 06/30/21 at 0600 Pending Level: 06/30/21 at 0600 Pharmacy Service will continue to monitor and adjust dosing as required. Follow-Up Labs: Trough Vancomycin - 06/30/21 at 0600 (random level)
[2021-06-30] VITALS (33 sets, daily range): BP systolic 96–171; BP diastolic 60–90; PULSE 57–115; RESP 16–32; TEMP 36.1–37.4; O2SAT 86–911
[2021-06-30] MEDS: CHLORHEXIDINE GLUC 2% CLOTH 1 EACH TOWELETTE TOPICAL (00:33)
[2021-06-30 06:12] LABS: Absolute Lymphocyte Count 0.62 X10^3/uL (0.83-4.51); Absolute Neutrophil Count 8.8 X10^3/uL (2.0-7.7); Basophil# 0.03 X10^3/uL; Basophil% 0.3 % (0-1); Eosinophil# 0.01 X10^3/uL; Eosinophils% 0.1 % (0-5); Hematocrit 31.1 % (37-47); Hemoglobin 10.2 g/dL (12.0-15.0); Lymphocyte # 0.62 X10^3/ul (0.83-4.51); Lymphocyte % 6.3 % (19-41); Mean Corp Hgb Conc 32.8 g/dL (32-36); Mean Corpuscular Hgb 29.1 pg (27.0-32.0); Mean Corpuscular Volume 88.6 fL (81-99); Mean Platelet Vol. 11.5 fl (6.2-12.0); Monocyte% 3.1 % (0-10); NRBC Flagged by Analyzer 0.2 % (0-5); Neutrophil # 8.79 X10^3/uL (2.7-7.7); Neutrophil % 89.6 % (47-70); POSITIVE MORPHOLOGY YES; Platelet Count 119 K/mm3 (150-450); RBC Distribution Width CV 15.7 % (11.6-14.6); RBC Distribution Width SD 50.7 fl (35.1-43.9); Red Blood Count 3.51 M/mm3 (4.2-5.4); White Blood Count 9.8 K/mm3 (4.4-11.0)
[2021-06-30] MEDS: Menthol/Lanolin/Calamine/Znox 113 GM Tube 1 APPLIC TOPICAL ×3 (06:28→22:21)
[2021-06-30 06:36] LABS: Anion Gap 11 (5-15); BUN 103 mg/dL (7-18); BUN/Creat Ratio 26.3 RATIO (10-20); Calcium,Total 7.4 mg/dL (8.5-10.1); Chloride 111 mmol/L (98-107); Creatinine, Serum 3.92 mg/dL (0.55-1.02); EST Glomerular Filtration Rate 12 mL/min (>60); Est Glom Filt Rate - Afr Amer 14 mL/min (>60); Estimated Creatinine Clearance 14.07 ml/min; Glucose 185 mg/dL (74-106); Potassium 4.2 mmol/L (3.5-5.1); Sodium Level 137 mmol/L (136-145)
[2021-06-30 06:54] LABS: Vancomycin, Random Level 22.9 ug/mL (0.0-15.0)
[2021-06-30 06:59] LABS: Differential Indicated SCAN CRITERIA MET
--- NOTE | 2021-06-30 07:16 | PCM.RX.CS ---
Consult Pharmacy has been consulted to manage selected antiobiotic: Vancomycin Type of Consult: Follow-up Prior Doses of Antibiotics Received/Current Regimen: Last dose was 1gm iv x 1 on 06.28.21. Labs: Sodium 137 mmol/L (136-145) 06/30/21 04:50 Potassium 4.2 mmol/L (3.5-5.1) 06/30/21 04:50 Chloride 111 mmol/L (98-107) H 06/30/21 04:50 Carbon Dioxide 15.0 mmol/L (21.0-32.0) L 06/30/21 04:50 Anion Gap 11 (5-15) 06/30/21 04:50 BUN 103 mg/dL (7-18) H* 06/30/21 04:50 Creatinine 3.92 mg/dL (0.55-1.02) H 06/30/21 04:50 Est GFR (MDRD) Af Amer 14 mL/min (>60) L 06/30/21 04:50 Est GFR (MDRD) Non-Af 12 mL/min (>60) L 06/30/21 04:50 BUN/Creatinine Ratio 26.3 RATIO (10-20) H 06/30/21 04:50 Glucose 185 mg/dL (74-106) H 06/30/21 04:50 Random Vancomycin 22.9 ug/mL (0.0-15.0) H 06/30/21 06:23 Microbiology: Microbiology 06/26/21 Unknown Sputum, Induced/Lukens Gram Stain - Final 06/26/21 Unknown Sputum, Induced/Lukens Respiratory Culture - Final Meth. resistant Staph. aureus 06/22/21 13:18 Nasal Secretion SARS-CoV-2 Antigen (Rapid) - Final SARS-CoV-2 (COVID 19) Weight used for dosin kg Estimated Creatinine Clearance: 14ml/min Pharmacy Plan for Drug Dosing: Random level today ~41 hrs post last dose was 22.9. No further dosing will be ordered until level <20. Random level ordered for tomorrow AM 07.01.21. Pharmacy Service will continue to monitor and adjust dosing as required. Follow-Up Labs: Trough Vancomycin - random level 07.01.21 @0600
[2021-06-30 07:41] LABS: Anisocytosis 1+; Platelet Estimate SLT DEC (ADEQ)
--- NOTE | 2021-06-30 07:42 | PCM.PN.HOSP ---
Subjective Subjective Follow-up on acute hypoxic respiratory failure/acute COVID-19 pneumonia: Patient was seen and examined. She is sedated, on mechanical ventilator Objective Data Objective Data Vital Signs: Vital Signs Temp Pulse Resp BP Pulse Ox 97.9 F 64 22 H 118/67 93 06/30/21 07:00 06/30/21 07:32 06/30/21 07:32 06/30/21 07:00 06/30/21 07:32 Oxygen Flow Rate (L/min) 60 Oxygen Delivery Method Mechanical Ventilator Weight: 71.9 kg Body Mass Index (BMI) 31.4 Intake & Output: Intake and Output for Last 24 Hours 06/28/21 06/29/21 06/30/21 23:59 23:59 23:59 Intake Total 2474.59 / 2519.69 1396.89 / 1875.79 1101.73 / 1101.73 Output Total 1120 / 1145 95 / 155 120 / 120 Balance 1354.59 / 1374.69 1301.89 / 1720.79 981.73 / 981.73 Medical Nutrition Assessment Dietitian: Malnutrition Criteria Met Start: 06/25/21 11:25 Freq: Status: Active Protocol: Document 06/29/21 10:04 TATA (Rec: 06/29/21 10:04 TATA [id number]) Nutrition Malnutrition Evidence of Malnutrition Exists Yes Malnutrition (severe): Acute Illness/Injury Evidenced By Suboptimal Energy Intake ( Severe),Weight Loss (Severe) Clinical Problem Acute Disease or Injury Related Malnutrition Etiology severe, acute malnutrition r/t inadequate energy intake d/t COVID-19 Signs/Symptoms as evidenced by unintentional ~5% wt loss x 5 days; estimated PO intake meeting < 50% of estimated energy needs > 5 days Status Active Problem Recommendation Dietitian Recommendations/Changes NPO while intubated; When medically able, rec reinitiate - Vital AF 1.2 at goal rate of 55mL/hour w/100mL H2O flush every 4 hours to provide 1584 calories, 99 g protein, and 1670mL total fluid/day. Would start at 20mL/hour and increase by 15mL/hour every 8- 12 hours as tolerated until goal rate is achieved. Lab / Micro Data Result Diagrams: 06/30/21 04:50 06/30/21 04:50 Labs: Laboratory Results - last 24 hr 06/29/21 06:40: Random Vancomycin 23.9 H 06/30/21 04:50: WBC 9.8, RBC 3.51 L, Hgb 10.2 L, Hct 31.1 L, MCV 88.6, MCH 29.1, MCHC 32.8, RDW Std Deviation 50.7 H, RDW Coeff of Kimberlee 15.7 H, Plt Count 119 L, MPV 11.5, Immature Gran % (Auto) 0.600, Neut % (Auto) 89.6 H, Lymph % (Auto) 6.3 L, Mcpherson % (Auto) 3.1, Eos % (Auto) 0.1, Baso % (Auto) 0.3, Absolute Neuts (auto) 8.8 H, Absolute Lymphs (auto) 0.62 L, Nucleated RBC % 0.2, Platelet Estimate SLT DEC, Anisocytosis 1+ 06/30/21 04:50: Sodium 137, Potassium 4.2, Chloride 111 H, Carbon Dioxide 15.0 L, Anion Gap 11, BUN 103 H*, Creatinine 3.92 H, Estim Creat Clear Calc 14.07, Est GFR (MDRD) Af Amer 14 L, Est GFR (MDRD) Non-Af 12 L, BUN/Creatinine Ratio 26.3 H, Glucose 185 H, Calcium 7.4 L 06/30/21 06:23: Random Vancomycin 22.9 H Micro: Microbiology 06/26/21 Unknown Sputum, Induced/Lukens Gram Stain - Final 06/26/21 Unknown Sputum, Induced/Lukens Respiratory Culture - Final Meth. resistant Staph. aureus 06/22/21 13:18 Nasal Secretion SARS-CoV-2 Antigen (Rapid) - Final SARS-CoV-2 (COVID 19) Radiography Diagnostic Testing: Radiology Impression Chest X-Ray 06/29/21 07:39 IMPRESSION: No interval change. Electronically Signed: Grey Gunderson MD at 8:37 EST , Service support , Physical Exam Narrative Physical exam: General: Sedated, intubated HEENT: Atraumatic, subcutaneous emphysema of the neck and chest Oral: Moist Mucosa Neck: Supple Lungs: Diminished to auscultation Cardiovascular: HS I+II, regular, no murmurs Abdomen: Bowel Sounds Present, Soft, Non Tender Extremities: No edema Assessment & Plan Assessment/Plan (1) COVID-19: (2) Acute hypoxemic respiratory failure due to COVID-19: PLAN: 1. Acute hypoxic respiratory failure secondary to acute COVID-19 pneumonia/acute pneumomediastinum/MRSA pneumonia Patient remains intubated. Continue on dexamethasone. Off remdesivir 2. HARLEY on CKD stage IIIb, creatinine is worse, Nephrology following, Dialysis planned today 3. Elevated D-dimer, continue on Lovenox SC 4. 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 DVT PPx- On Lovenox SC Charges/Coding Visit Charges Inpatient E&M: 45763 Subs Hosp L3
--- NOTE | 2021-06-30 08:28 | PN.CC_ITS ---
Assessment & Plan Assessment/Plan (1) Acute hypoxemic respiratory failure due to COVID-19: (2) COVID-19: PLAN: RECOMMENDATIONS: 1. Continue patient on assist control and wean FiO2/PEEP for saturations greater than 90%. 2. Continue vancomycin with pharmacy to dose 3. Continue therapeutic Lovenox (dose adjusted for renal function) 4. Continue Decadron to complete 10 days of therapy. 5. Attempt to resume tube feeds if feasible. Aggressive bowel regimen 6. Continue appropriate GI prophylaxis. 7. Await nephrology recommendations, possible dialysis line in the next 24 to 48 hours IMPRESSIONS: 1. Acute hypoxemic respiratory failure secondary to COVID-19/MRSA pneumonia The patient was initially admitted to the hospital on June 22 with COVID-19 pneumonia. Her hospital course has been complicated by worsening respiratory status, culminating in transfer to the ICU on June 24 to be placed on noninvasive positive pressure ventilatory support. Unfortunately, the patient failed to improve on continuous BiPAP support and required intubation on June 26. She will be continued on assist control mode mechanical ventilation. FiO2 and PEEP will be weaned for saturations greater than 90%. In the interim, plan to continue current supportive measures decadron and Lovenox as ordered. Although her initial CTA chest was negative for PE, follow-up D- dimer was notably elevated at 14. Therefore, the patient will be continued on therapeutic Lovenox. Will attempt to minimize PEEP to help with pneumomedia stinum. Pharmacy to dose vancomycin. 2. Distributive shock Likely secondary to acute infectious etiology coupled with the hemodynamic impact of sedative medication use. Continue vasopressor support to maintain mean arterial pressure at or above 65 mmHg. 3. SVT/Atrial Fibrillation The patient appears to be in atrial fibrillation with a rapid ventricular rate. Patient appears to have responded to amiodarone. Clinical suspicion for development of A. fib secondary to pneumomediastinum. 4. Acute kidney injury Worsening. Likely secondary to acute presentation/ATN in the setting of #1. Avoid nephrotoxic medications. Continue to monitor urine output. Given interval worsening in renal function, will await nephrology consultation. TIME: 35 minutes of critical care time, independent of procedures, was spent addressing the patient's acute hypoxemic respiratory failure secondary to COVID- 19 pneumonia, acute kidney injury, distributive shock, atrial fibrillation, review of all data and collaboration with the care team. Subjective Subjective The patient did okay overnight. Patient appears to have responded to amiodarone drip with improvement in tachycardia. Patient was taken off of sedation and remains relatively sedated. Nursing did report increased residuals overnight. Levophed has been discontinued. Urine output remains marginal. Patient is not interactive at this time. Objective Data Objective Data Vital Signs: Vital Signs Temp Pulse Resp BP Pulse Ox 36.6 C 64 22 H 118/67 93 06/30/21 07:00 06/30/21 07:32 06/30/21 07:32 06/30/21 07:00 06/30/21 07:32 Oxygen Flow Rate (L/min) 60 Oxygen Delivery Method Mechanical Ventilator Weight: 71.9 kg Body Mass Index (BMI) 31.4 Intake & Output: Intake and Output for Last 24 Hours 06/28/21 06/29/21 06/30/21 23:59 23:59 23:59 Intake Total 2474.59 / 2519.69 1396.89 / 1875.79 1101.73 / 1101.73 Output Total 1120 / 1145 95 / 155 120 / 120 Balance 1354.59 / 1374.69 1301.89 / 1720.79 981.73 / 981.73 Medical Nutrition Assessment Dietitian: Malnutrition Criteria Met Start: 06/25/21 11:25 Freq: Status: Active Protocol: Document 06/29/21 10:04 [facility] (Rec: 06/29/21 10:04 [facility]ATA [id number]) Nutrition Malnutrition Evidence of Malnutrition Exists Yes Malnutrition (severe): Acute Illness/Injury Evidenced By Suboptimal Energy Intake ( Severe),Weight Loss (Severe) Clinical Problem Acute Disease or Injury Related Malnutrition Etiology severe, acute malnutrition r/t inadequate energy intake d/t COVID-19 Signs/Symptoms as evidenced by unintentional ~5% wt loss x 5 days; estimated PO intake meeting < 50% of estimated energy needs > 5 days Status Active Problem Recommendation Dietitian Recommendations/Changes NPO while intubated; When medically able, rec reinitiate - Vital AF 1.2 at goal rate of 55mL/hour w/100mL H2O flush every 4 hours to provide 1584 calories, 99 g protein, and 1670mL total fluid/day. Would start at 20mL/hour and increase by 15mL/hour every 8- 12 hours as tolerated until goal rate is achieved. Lab / Micro Data Result Diagrams: 06/30/21 04:50 06/30/21 04:50 Labs: Laboratory Results - last 24 hr 06/30/21 04:50: WBC 9.8, RBC 3.51 L, Hgb 10.2 L, Hct 31.1 L, MCV 88.6, MCH 29.1, MCHC 32.8, RDW Std Deviation 50.7 H, RDW Coeff of Kimberlee 15.7 H, Plt Count 119 L, MPV 11.5, Immature Gran % (Auto) 0.600, Neut % (Auto) 89.6 H, Lymph % (Auto) 6.3 L, [place] % (Auto) 3.1, Eos % (Auto) 0.1, Baso % (Auto) 0.3, Absolute Neuts (auto) 8.8 H, Absolute Lymphs (auto) 0.62 L, Nucleated RBC % 0.2, Platelet Estimate SLT DEC, Anisocytosis 1+ 06/30/21 04:50: Sodium 137, Potassium 4.2, Chloride 111 H, Carbon Dioxide 15.0 L , Anion Gap 11, BUN 103 H*, Creatinine 3.92 H, Estim Creat Clear Calc 14.07, Est GFR (MDRD) Af Amer 14 L, Est GFR (MDRD) Non-Af 12 L, BUN/Creatinine Ratio 26.3 H , Glucose 185 H, Calcium 7.4 L 06/30/21 06:23: Random Vancomycin 22.9 H Micro: Microbiology 06/26/21 Unknown Sputum, Induced/Lukens Gram Stain - Final 06/26/21 Unknown Sputum, Induced/Lukens Respiratory Culture - Final Meth. resistant Staph. aureus 06/22/21 13:18 Nasal Secretion SARS-CoV-2 Antigen (Rapid) - Final SARS-CoV-2 (COVID 19) Radiography Diagnostic Testing: Radiology Impression Chest X-Ray 06/29/21 07:39 IMPRESSION: No interval change. Electronically Signed: Grey Gunderson MD at 8:37 EST , Service support , Physical Exam Const General Appearance: ill appearing, intubated and patient mechanically ventilated Nutritional Appearance: obese HEENT normocephalic and head/scalp atraumatic Mouth: endotracheal tube in place and OG tube in place Eyes PERRL and EOMs intact bilaterally Neck supple General: trachea midline Chest Chest Narrative: + Crepitus throughout sternum, clavicle and neck Resp Effort and Inspection: mechanically ventilated Auscultation: diminished lung sounds; Negative for rales, rhonchi or wheezes Cardio S1 normal heart sound and S2 normal heart sound Cardio Narrative: Frequent SVT on telemetry with improvement over time Rhythm: abnormal rhythm GI normal to inspection, nondistended, normoactive bowel sounds Extremity no clubbing, cyanosis or edema Skin no rashes or lesions noted Neuro Sensorium / Orientation: sedated on vent Charges/Coding Procedures Hospitalists Procedures: 74676 Critial Care 1st Hr
[2021-06-30] MEDS: TITRATION PARAMETER CHANGE 1 EACH IV (10:24)
[2021-06-30] MEDS: Amiodarone 200 MG Tablet 400 MG GT (11:03)
[2021-06-30] MEDS: Polyethylene Glycol 3350 17 GM PACKET PO ×2 (11:03→22:22)
[2021-06-30] MEDS: dexAMETHasone 10 MG/ML Vial 6 MG IV (11:04)
[2021-06-30] MEDS: Enoxaparin 60 MG/0.6 ML Syringe SC (11:04)
[2021-06-30] MEDS: Senna/Docusate Sodium 1 Tablet 2 TABLET PO ×2 (11:04→22:22)
[2021-06-30] MEDS: Chlorhexidine 15 ML PO ×2 (11:05→22:21)
[2021-06-30] MEDS: Nystatin Ointment 1 APPLIC TOPICAL ×2 (11:05→22:21)
--- NOTE | 2021-06-30 11:59 | PCM.CONS.R ---
Assessment & Plan Assessment/Plan (1) HARLEY (acute kidney injury): PLAN: There is no history of significant CKD. Serum creatinine was 1.02 mg/dL as recently as June 26, 2021. HARLEY is likely due to ischemic ATN related to severe sepsis from COVID-19 pneumonia. The patient has been intermittently on IV norepinephrine. She is anuric. We will check urinalysis, urine indices, and ultrasound of kidney to be complete. Again, I have low suspicion for other causes of HARLEY at this time. Given progressively worsening renal function in the past 48 hours, intermittent need for pressor, and acidosis, I would recommend initiation of hemodialysis to help control solute and volume load. Plan on dialysis today and for the next 2 days. Current medications are reviewed, and they are appropriately dosed for planned IHD. (2) Metabolic acidosis: PLAN: Serum bicarbonate level is 15 mmol/L today. I suspect that this is due to HARLEY. There has been no diarrhea. Serum bicarbonate level should improve and stabilize on IHD. (3) Septic shock: PLAN: The patient has required IV norepinephrine drip. She came off of pressor earlier this morning. Complex coordination of supportive care in ICU as per team supervisor. (4) Acute hypoxemic respiratory failure due to COVID-19: PLAN: Ventilator dependent. Treatment of COVID-19 pneumonia as per team supervisor and ID. Ventilator management as per team supervisor. Will help with ultrafiltration to hopefully help limit acute lung injury. HPI Consult Data Date of Consult: 06/30/21 HPI Narrative Reason for Consultation: HARLEY on CKD HPI Narrative: JENI AVALOS, is a 76-year-old woman who presented to the hospital on June 22, 2021 with altered mental status. The patient was found in her home by her niece with confusion and stool incontinence. The patient was subsequently diagnosed with COVID-19 pneumonia on presentation to the hospital. She is now intubated/sedated, so history is obtained mainly from chart review and discussion with other clinicians. Nephrology is asked to see the patient because of HARLEY. Serum creatinine has been rising over the past 3 days. Her serum creatinine increased from 1.02 mg/dL on June 26, 2021 up to 3.92 mg/dL today. The patient has been off and on IV pressor agent. She is currently off of IV norepinephrine since 12 AM this morning. She has essentially been anuric over the past 48 hours. Bicarbonate level is also low at 15 mmol/L. COUNT INCLUDES THE [facility] Medical History Hypertension Home Medications NK 06/22/21 [History Last Taken Unknown] Allergy/AdvReac Type Severity Reaction Status Date / Time Sxtgrif-YRX-FfS Reductase Allergy Pain in Verified 12/06/15 09:34 Inhibitor joints [Vzmggub-Ywi-Esx Reductase Inhibitor] Social History Smoking Status: Never smoker substance use type: does not use ROS ROS Narrative Cannot be obtained because of the patient's current status. She is intubated and sedated. Physical Exam Narrative General appearance: Ill-appearing woman who appears to be her stated age. She is on mechanical ventilator. HEENT: The patient is intubated. Mucous membrane moist. PERRLA. Neck: Supple, no JVD. Heart: Normal S1, S2. No rubs or murmurs. Lungs: Coarse breath sound bilaterally. Abdomen: Normal bowel sounds, soft, nontender, no guarding or rebound. Extremity: No clubbing or cyanosis. There is no edema of the lower extremity. Musculoskeletal: Full passive range of motion. There is no joint swelling. Skin: Skin is warm and dry without rash. Medical Records Data Medical Nutrition Assessment Dietitian: Malnutrition Criteria Met Start: 06/25/21 11:25 Freq: Status: Active Protocol: Document 06/30/21 11:38 [facility] (Rec: 06/30/21 11:38 [facility] [id number]) Nutrition Malnutrition Evidence of Malnutrition Exists Yes Malnutrition (severe): Acute Illness/Injury Evidenced By Suboptimal Energy Intake ( Severe),Weight Loss (Severe) Clinical Problem Acute Disease or Injury Related Malnutrition Etiology severe, acute malnutrition r/t inadequate energy intake d/t COVID-19 Signs/Symptoms as evidenced by unintentional ~5% wt loss x 5 days; estimated PO intake meeting < 50% of estimated energy needs > 5 days Status Active Problem Recommendation Dietitian Recommendations/Changes NPO while intubated; Rec Vital AF 1.2 at goal rate of 55mL/ hour w/100mL H2O flush every 4 hours to provide 1584 calories, 99 g protein, and 1670mL total fluid/day. Would start at 20mL/hour and increase by 15mL/hour every 8- 12 hours as tolerated until goal rate is achieved. Lab / Micro Data Result Diagrams: 06/30/21 04:50 06/30/21 04:50 Labs: Laboratory Results - last 24 hr 06/30/21 04:50: WBC 9.8, RBC 3.51 L, Hgb 10.2 L, Hct 31.1 L, MCV 88.6, MCH 29.1, MCHC 32.8, RDW Std Deviation 50.7 H, RDW Coeff of Kimberlee 15.7 H, Plt Count 119 L, MPV 11.5, Immature Gran % (Auto) 0.600, Neut % (Auto) 89.6 H, Lymph % (Auto) 6.3 L, [place] % (Auto) 3.1, Eos % (Auto) 0.1, Baso % (Auto) 0.3, Absolute Neuts (auto) 8.8 H, Absolute Lymphs (auto) 0.62 L, Nucleated RBC % 0.2, Platelet Estimate SLT DEC, Anisocytosis 1+ 06/30/21 04:50: Sodium 137, Potassium 4.2, Chloride 111 H, Carbon Dioxide 15.0 L, Anion Gap 11, BUN 103 H*, Creatinine 3.92 H, Estim Creat Clear Calc 14.07, Est GFR (MDRD) Af Amer 14 L, Est GFR (MDRD) Non-Af 12 L, BUN/Creatinine Ratio 26.3 H, Glucose 185 H, Calcium 7.4 L 06/30/21 06:23: Random Vancomycin 22.9 H
--- NOTE | 2021-06-30 12:14 | US_ITS ---
STUDY: RENAL ULTRASOUND - COMPLETE REASON FOR EXAM: Female, 76 years old. kota covid positive, on ventilator TECHNIQUE: Ultrasound evaluation of the kidneys was performed with real-time and static umana-scale imaging. Limitation due to body habitus, bowel gas and patient''s condition. COMPARISON: CT abdomen pelvis 06/12/2015. CT chest 06/22/2021 FINDINGS: RIGHT KIDNEY: The right kidney measures approximately 9 x 5 x 4.7 cm. There is a normal cortex of the right kidney. The renal cortex measures 1 cm. There is no right hydronephrosis. DISTAL RIGHT URETER: There is non-visualization of the distal right ureter. There is no demonstrated right ureteral jet. LEFT KIDNEY: The left kidney measures approximately 9 x 3.8 x 4.3 cm. There is extremely limited visualization. There is no left hydronephrosis. DISTAL LEFT URETER: There is non-visualization of the distal left ureter. There is no demonstrated left ureteral jet. BLADDER: The distended urinary bladder has a volume of 50.5 ml. There is a ALEGRIA catheter. Urinary bladder wall not well visualized.. US/Kidney and Bladder IMPRESSION: Extremely limited examination. No evidence of hydronephrosis detected. Electronically Signed: Kavya White MD at 5:15 EST , Service support ,
--- NOTE | 2021-06-30 13:00 | RAD_ITS ---
STUDY: X-RAY CHEST REASON FOR EXAM: Female, 76 years old. Line placement -- new dialysis cath TECHNIQUE: Frontal view COMPARISON: 06/29/2021 FINDINGS: Stable endotracheal and nasogastric tubes. Stable right PICC line. Right central line with tip at the proximal SVC. The lungs are expanded. Bibasilar infiltrates, left more than right. Normal size heart. Normal mediastinum and joseph. Normal visualized pulmonary arteries. Normal visualized aortic arch and descending thoracic aorta. Degenerative changes of the thoracic spine. Left shoulder prosthesis in place. Old left rib fractures. There is no demonstrated abnormality of the visualized soft tissue structures of the upper abdomen. RAD/Chest 1 View (Portable) IMPRESSION: Bibasilar infiltrates, left more than right. Electronically Signed: Chago Clarke DO at 17:00 EST Tel [phone], Service support ,
[2021-06-30] MEDS: Heparin 10,000 UNITS/10 ML Vial 1000 UNITS IV (13:18)
[2021-06-30 13:24] LABS: Pathologist Review Reviewed
[2021-06-30 13:34] LABS: Bacteria 0 SEEN /hpf (None Seen); Mucous, Urine 0 SEEN /hpf (<or=2+)
[2021-06-30 13:35] LABS: Color, Urine Yellow (Yellow); Glucose, Dipstick Normal (Normal); Ketone-Dipstick Negative (Negative); Leukocyte Esterase-Dipstick 100 /ul (Negative); Nitrite-Dipstick Negative (Negative); Occult Blood-Urine 250 /ul (Negative); Protein-Dipstick 30 mg/dl (Negative); Urine Bilirubin Dipstick Negative (Negative); Urine Clarity Sl. Cloudy (Clear); Urine Urobilinogen Normal (Normal)
[2021-06-30 13:41] LABS: Amorphous Sediment 1+; Red Blood Cells-Urine 0-5 SEEN /hpf (0-5); Squamous Epithelial Cells - UA 0-5 SEEN /hpf (5-10); White Blood Cells 5-10 SEEN /hpf (0-5)
[2021-06-30 13:42] LABS: Pathologist Review Reviewed
[2021-06-30 13:48] LABS: Urine Sodium 55 mmol/L (Not Establ.)
--- NOTE | 2021-06-30 13:52 | PCM.OP.BLANK ---
Operative Report Date of Procedure: 06/30/21 Temporary hemodialysis catheter placement procedure note Indication: Hemodialysis Procedure: A time-out was completed to verify correct patient, indication, medication allergies, procedure, coagulation studies, informed consent signed, and equipment needed. The patient was placed in the supine position for a central line placement to the rt IJ vein. The patients rt neck was prepped using chlorhexidine and a full body sterile drape was applied. 1% lidocaine was used to anesthetize the surrounding skin. A 12fr 20 cm temporary hemodialysis catheter introduced into the internal jugular vein using the modified Seldinger technique with the assistance of ultrasound. The site was dilated up twice in a stepwise fashion. The catheter was threaded smoothly over the guidewire, the guidewire was removed easily, nonpulsatile blood returned. All ports were aspirated of air and flushed with sterile saline, then locked with 1.4 cc you 1000 heparin to each port. The catheter was sutured in place and covered with an occlusive dressing impregnated with chlorhexidine. Post-procedure: The patient tolerated the procedure well. Vital signs remained stable. EBL 3 cc. No complications. Chest X Ray ordered to confirm tip placement and the absence of pneumothorax. Procedures Hospitalists Procedures: 64108 Insert Non-tunnel CV Cath
[2021-06-30] MEDS: Heparin 10,000 UNITS/10 ML Vial IV (18:15)
--- NOTE | 2021-06-30 18:25 | DIALYSIS ---
HD tx 2hrs completed without complications. Total UF removed 900ml. Report given to SONIA Alvarez.
[2021-06-30] MEDS: Vital AF 1.2 Cal Liquid 1,000 ML 55 ML GT (18:42)
--- NOTE | 2021-06-30 20:15 | EKG12_ITS ---
Test Reason : Blood Pressure : / mmHG Vent. Rate : 115 BPM Atrial Rate : 115 BPM P-R Int : 140 ms QRS Dur : 094 ms QT Int : 326 ms P-R-T Axes : 022 -03 050 degrees QTc Int : 450 ms Sinus tachycardia Incomplete right bundle branch block Abnormal ECG When compared with ECG of 29-JUN-2021 08:19, MANUAL COMPARISON REQUIRED, DATA IS UNCONFIRMED Confirmed by FROY PENA, NIYAH ([id number]), online editor HANNAH HARRISON ([id number]) on 07/11/2021 8:05:46 AM Referred By: JOELLE Confirmed By:JOSEF MCDUFFIE MD
--- NOTE | 2021-06-30 21:30 | EKG12_ITS ---
Test Reason : RHYTHM CHANGE Blood Pressure : / mmHG Vent. Rate : 122 BPM Atrial Rate : 088 BPM P-R Int : 000 ms QRS Dur : 060 ms QT Int : 344 ms P-R-T Axes : 000 011 181 degrees QTc Int : 490 ms Atrial fibrillation with rapid ventricular response with premature ventricular or aberrantly conducte d complexes Low voltage QRS When compared with ECG of 29-JUN-2021 05:28, MANUAL COMPARISON REQUIRED, DATA IS UNCONFIRMED Confirmed by FROY PENA, NIYAH ([id number]), general expeditor HANNAH HARRISON ([id number]) on 07/11/2021 8:07:36 AM Referred By: JAQUI ESPOSITO Confirmed By:JOSEF MCDUFFIE MD
--- NOTE | 2021-06-30 21:39 | PCM.PN.BLA ---
Progress Note Patient with A. fib with RVR. Ventricular rate of 154. Also nurse reports irregular rhythm with rates in the 200s earlier on. Stop Amiodarone per G-tube. Amiodarone IV bolus and drip ordered
[2021-07-01] VITALS (33 sets, daily range): BP systolic 100–173; BP diastolic 73–98; PULSE 69–101; RESP 16–39; TEMP 36.9–37.9; O2SAT 71–97
[2021-07-01 04:07] LABS: Absolute Lymphocyte Count 0.64 X10^3/uL (0.83-4.51); Absolute Neutrophil Count 7.1 X10^3/uL (2.0-7.7); Basophil# 0.03 X10^3/uL; Basophil% 0.4 % (0-1); Hematocrit 31.3 % (37-47); Hemoglobin 10.6 g/dL (12.0-15.0); Lymphocyte # 0.64 X10^3/ul (0.83-4.51); Lymphocyte % 7.7 % (19-41); Mean Corp Hgb Conc 33.9 g/dL (32-36); Mean Corpuscular Hgb 28.4 pg (27.0-32.0); Mean Corpuscular Volume 83.9 fL (81-99); Mean Platelet Vol. 11.2 fl (6.2-12.0); Monocyte# 0.38 X10^3/uL; Monocyte% 4.6 % (0-10); NRBC Flagged by Analyzer 0.2 % (0-5); Neutrophil # 7.12 X10^3/uL (2.7-7.7); Neutrophil % 86.2 % (47-70); POSITIVE MORPHOLOGY YES; Platelet Count 110 K/mm3 (150-450); RBC Distribution Width CV 15.4 % (11.6-14.6); RBC Distribution Width SD 46.6 fl (35.1-43.9); Red Blood Count 3.73 M/mm3 (4.2-5.4); White Blood Count 8.3 K/mm3 (4.4-11.0)
[2021-07-01 04:09] LABS: Differential Indicated SCAN CRITERIA MET
[2021-07-01 04:41] LABS: ALB/GLOB Ratio 0.3 RATIO (0.9-2.4); AST(SGOT) 40 U/L (15-37); Alanine Aminotransfer ALT/SGPT 30 U/L (13-56); Albumin, Serum 1.2 g/dL (3.2-5.0); Alkaline Phosphatase 167 U/L (45-117); Anion Gap 14 (5-15); BUN 75 mg/dL (7-18); BUN/Creat Ratio 25.9 RATIO (10-20); Calcium,Total 6.9 mg/dL (8.5-10.1); Chloride 95 mmol/L (98-107); EST Glomerular Filtration Rate 17 mL/min (>60); Est Glom Filt Rate - Afr Amer 20 mL/min (>60); Estimated Creatinine Clearance 19.08 ml/min; Globulin 4.1 g/dL (2.2-4.2); Glucose 330 mg/dL (74-106); Potassium 3.2 mmol/L (3.5-5.1); Protein, Total 5.3 g/dL (6.4-8.2); Sodium Level 129 mmol/L (136-145)
[2021-07-01 04:53] LABS: Anisocytosis RARE; Differential Comment SCANNED; Microcytosis RARE
[2021-07-01] MEDS: Insulin Lispro 100 UNIT/ML INSULN.PEN SC ×2 (06:51→23:25)
[2021-07-01] MEDS: Menthol/Lanolin/Calamine/Znox 113 GM Tube 1 APPLIC TOPICAL ×3 (06:51→23:22)
[2021-07-01 07:05] LABS: Bedside Glucose 158 mg/dL (70-110)
--- NOTE | 2021-07-01 07:43 | PN.HOSP_ITS ---
Subjective Subjective Follow-up on acute hypoxic respiratory failure/acute COVID-19 pneumonia: Patient was seen and examined. She was started on dialysis yesterday. 900 mils of fluid pulled out. Patient also went into A. fib with RVR yesterday. P.o. amiodarone converted to IV. Objective Data Objective Data Vital Signs: Vital Signs Temp Pulse Resp BP Pulse Ox 98.8 F 73 22 H 172/91 H 91 07/01/21 04:00 07/01/21 05:16 07/01/21 05:16 07/01/21 04:00 07/01/21 05:16 Oxygen Flow Rate (L/min) 60 Oxygen Delivery Method Mechanical Ventilator Weight: 72.1 kg Body Mass Index (BMI) 31.4 Intake & Output: Intake and Output for Last 24 Hours 06/29/21 06/30/21 07/01/21 23:59 23:59 23:59 Intake Total 1396.89 / 1875.79 2118.63 / 2252.43 1732.51 / 1732.51 Output Total 95 / 155 1220 / 1345 425 / 425 Balance 1301.89 / 1720.79 898.63 / 907.43 1307.51 / 1307.51 Medical Nutrition Assessment Dietitian: Malnutrition Criteria Met Start: 06/25/21 11:25 Freq: Status: Active Protocol: Document 06/30/21 11:38 [facility] (Rec: 06/30/21 11:38 [facility] [id number]) Nutrition Malnutrition Evidence of Malnutrition Exists Yes Malnutrition (severe): Acute Illness/Injury Evidenced By Suboptimal Energy Intake ( Severe),Weight Loss (Severe) Clinical Problem Acute Disease or Injury Related Malnutrition Etiology severe, acute malnutrition r/t inadequate energy intake d/t COVID-19 Signs/Symptoms as evidenced by unintentional ~5% wt loss x 5 days; estimated PO intake meeting < 50% of estimated energy needs > 5 days Status Active Problem Recommendation Dietitian Recommendations/Changes NPO while intubated; Rec Vital AF 1.2 at goal rate of 55mL/ hour w/100mL H2O flush every 4 hours to provide 1584 calories, 99 g protein, and 1670mL total fluid/day. Would start at 20mL/hour and increase by 15mL/hour every 8- 12 hours as tolerated until goal rate is achieved. Lab / Micro Data Result Diagrams: 07/01/21 03:50 07/01/21 03:50 Labs: Laboratory Results - last 24 hr 06/28/21 05:30: Diff Path Review Reviewed 06/29/21 03:33: Diff Path Review Reviewed 06/30/21 13:20: Urine Color Yellow, Urine Clarity Sl. Cloudy, Urine pH 5.0, Ur Specific [place] 1.010, Urine Protein 30 H, Urine Glucose (UA) Normal, Urine Ketones Negative, Urine Occult Blood 250 H, Urine Nitrite Negative, Urine Bilirubin Negative, Urine Urobilinogen Normal, Ur Leukocyte Esterase 100 H, Urine RBC 0-5 SEEN, Urine WBC 5-10 SEEN, Ur Squamous Epith Cells 0-5 SEEN, Amorphous Sediment 1+, Urine Bacteria 0 SEEN, Urine Mucus 0 SEEN 06/30/21 13:20: Ur Random Sodium 55, Urine Creatinine 41.80 07/01/21 03:50: WBC 8.3, RBC 3.73 L, Hgb 10.6 L, Hct 31.3 L, MCV 83.9 D, MCH 28.4, MCHC 33.9, RDW Std Deviation 46.6 H, RDW Coeff of Kimberlee 15.4 H, Plt Count 110 L, MPV 11.2, Immature Gran % (Auto) 1.100 H, Neut % (Auto) 86.2 H, Lymph % (Auto) 7.7 L, [place] % (Auto) 4.6, Eos % (Auto) 0.0, Baso % (Auto) 0.4, Absolute Neuts (auto) 7.1, Absolute Lymphs (auto) 0.64 L, Nucleated RBC % 0.2, Differential Comment SCANNED, Anisocytosis RARE, Microcytosis RARE 07/01/21 03:50: Sodium 129 L, Potassium 3.2 L, Chloride 95 L, Carbon Dioxide 20.0 L, Anion Gap 14, BUN 75 H, Creatinine 2.90 H, Estim Creat Clear Calc 19.08, Est GFR (MDRD) Af Amer 20 L, Est GFR (MDRD) Non-Af 17 L, BUN/Creatinine Ratio 25.9 H, Glucose 330 H, Calcium 6.9 L, Total Bilirubin 0.50, AST 40 H, ALT 30, Alkaline Phosphatase 167 H, Total Protein 5.3 L, Albumin 1.2 L, Globulin 4.1, Albumin/Globulin Ratio 0.3 L 07/01/21 06:36: POC Glucose 158 H Micro: Microbiology 06/26/21 Unknown Sputum, Induced/Lukens Gram Stain - Final 06/26/21 Unknown Sputum, Induced/Lukens Respiratory Culture - Final Meth. resistant Staph. aureus 06/22/21 13:18 Nasal Secretion SARS-CoV-2 Antigen (Rapid) - Final SARS-CoV-2 (COVID 19) Radiography Diagnostic Testing: Radiology Impression Renal Ultrasound 06/30/21 12:14 IMPRESSION: Extremely limited examination. No evidence of hydronephrosis detected. Electronically Signed: Kavya White MD at 5:15 EST , Service support , Chest X-Ray 06/30/21 13:00 IMPRESSION: Bibasilar infiltrates, left more than right. Electronically Signed: Chago Clarke DO at 17:00 EST Tel [phone], Service support , Physical Exam Narrative Physical exam: General: Sedated, intubated HEENT: Atraumatic, subcutaneous emphysema of the neck and chest, right-sided dialysis catheter Oral: Moist Mucosa Neck: Supple Lungs: Diminished to auscultation Cardiovascular: HS I+II, regular, no murmurs Abdomen: Bowel Sounds Present, Soft, Non Tender Extremities: No edema Assessment & Plan Assessment/Plan (1) COVID-19: (2) Acute hypoxemic respiratory failure due to COVID-19: PLAN: 1. Acute hypoxic respiratory failure secondary to acute COVID-19 pneumonia/acute pneumomediastinum/MRSA pneumonia Patient remains intubated, sedated. Continue on dexamethasone. Off remdesivir 2. A. fib with RVR, heart rate is better controlled, continue on amiodarone drip 3. HARLEY on CKD stage IIIb, creatinine is worse, Started on dialysis yesterday, receiving dialysis today Nephrology following 4. Elevated D-dimer, continue on Lovenox SC 5. Severe protein -calorie malnutrition, religion department chair consulted, on supplements 6. DVT PPx- On Lovenox SC Charges/Coding Visit Charges Inpatient E&M: 60406 Subs Hosp L3
--- NOTE | 2021-07-01 08:11 | PN.CC_ITS ---
Assessment & Plan Assessment/Plan (1) Acute hypoxemic respiratory failure due to COVID-19: (2) COVID-19: PLAN: RECOMMENDATIONS: 1. Continue patient on assist control and wean FiO2/PEEP for saturations greater than 90%. 2. Continue vancomycin with pharmacy to dose 3. Continue therapeutic Lovenox (dose adjusted for renal function) 4. Continue Decadron to complete 10 days of therapy. 5. Attempt to resume tube feeds if feasible. Aggressive bowel regimen 6. Continue appropriate GI prophylaxis. 7. Dialysis per nephrology recommendations. Volume removal if possible. 8. May need to increase PEEP until volume status is improving IMPRESSIONS: 1. Acute hypoxemic respiratory failure secondary to COVID-19/MRSA pneumonia The patient was initially admitted to the hospital on June 22 with COVID-19 pneumonia. Her hospital course has been complicated by worsening respiratory status, culminating in transfer to the ICU on June 24 to be placed on noninvasive positive pressure ventilatory support. Unfortunately, the patient failed to improve on continuous BiPAP support and required intubation on June 26. She will be continued on assist control mode mechanical ventilation. FiO2 and PEEP will be weaned for saturations greater than 90%. In the interim, plan to continue current supportive measures decadron and Lovenox as ordered. Although her initial CTA chest was negative for PE, follow-up D-dimer was notably elevated at 14. Therefore, the patient will be continued on therapeutic Lovenox. Will attempt to minimize PEEP to help with pneumomediastinum. Pharmacy to dose vancomycin. 2. Distributive shock Likely secondary to acute infectious etiology coupled with the hemodynamic impact of sedative medication use. Continue vasopressor support to maintain mean arterial pressure at or above 65 mmHg. 3. SVT/Atrial Fibrillation The patient appears to be in atrial fibrillation with a rapid ventricular rate. Patient appears to have responded to amiodarone. Clinical suspicion for development of A. fib secondary to pneumomediastinum. 4. Acute kidney injury Patient now on hemodialysis. Avoid nephrotoxic medications. No hydronephrosis noted on renal ultrasound. Patient would benefit from moderate volume removal as patient continues to be positive on a daily basis. Addendum 1:41 PM: Patient with significant difficulty while on dialysis earlier today. For this reason, family was called in for a family meeting. Current status was explained in detail. After review of the current status, family has elected to make patient a DNR Comfort Care arrest with intubation. They understand that this means that no CPR will be given. If patient is not able to tolerate he modialysis tomorrow, will likely transition to palliative measures. Patient will continue to have relatively aggressive measures over the next 24 hours to see if optimization will allow for hemodialysis. TIME: 81 minutes of critical care time, independent of procedures, was spent addressing the patient's acute hypoxemic respiratory failure secondary to COVID- 19 pneumonia, acute kidney injury, distributive shock, atrial fibrillation, review of all data and collaboration with the care team. Subjective Subjective Patient did okay overnight. Patient did have a bowel movement. Patient did develop A. fib with RVR and was reinitiated on amiodarone. Patient was continued on tube feeds. Blood sugars have been elevated, but patient is tolerating better. Patient did have hemodialysis yesterday with 900 cc removed. Objective Data Objective Data Vital Signs: Vital Signs Temp Pulse Resp BP Pulse Ox 37.1 C 73 26 H 160/83 H 91 07/01/21 07:00 07/01/21 07:09 07/01/21 07:09 07/01/21 07:00 07/01/21 07:09 Oxygen Flow Rate (L/min) 60 Oxygen Delivery Method Mechanical Ventilator Weight: 72.1 kg Body Mass Index (BMI) 31.4 Intake & Output: Intake and Output for Last 24 Hours 06/29/21 06/30/21 07/01/21 23:59 23:59 23:59 Intake Total 1396.89 / 1875.79 2118.63 / 2252.43 1786.26 / 1786.26 Output Total 95 / 155 1220 / 1345 425 / 425 Balance 1301.89 / 1720.79 898.63 / 907.43 1361.26 / 1361.26 Medical Nutrition Assessment Dietitian: Malnutrition Criteria Met Start: 06/25/21 11:25 Freq: Status: Active Protocol: Document 06/30/21 11:38 TATA (Rec: 06/30/21 11:38 TATA [id number]) Nutrition Malnutrition Evidence of Malnutrition Exists Yes Malnutrition (severe): Acute Illness/Injury Evidenced By Suboptimal Energy Intake ( Severe),Weight Loss (Severe) Clinical Problem Acute Disease or Injury Related Malnutrition Etiology severe, acute malnutrition r/t inadequate energy intake d/t COVID-19 Signs/Symptoms as evidenced by unintentional ~5% wt loss x 5 days; estimated PO intake meeting < 50% of estimated energy needs > 5 days Status Active Problem Recommendation Dietitian Recommendations/Changes NPO while intubated; Rec Vital AF 1.2 at goal rate of 55mL/ hour w/100mL H2O flush every 4 hours to provide 1584 calories, 99 g protein, and 1670mL total fluid/day. Would start at 20mL/hour and increase by 15mL/hour every 8- 12 hours as tolerated until goal rate is achieved. Lab / Micro Data Result Diagrams: 07/01/21 03:50 07/01/21 03:50 Labs: Laboratory Results - last 24 hr 06/28/21 05:30: Diff Path Review Reviewed 06/29/21 03:33: Diff Path Review Reviewed 06/30/21 13:20: Urine Color Yellow, Urine Clarity Sl. Cloudy, Urine pH 5.0, Ur Specific [place] 1.010, Urine Protein 30 H, Urine Glucose (UA) Normal, Urine Ketones Negative, Urine Occult Blood 250 H, Urine Nitrite Negative, Urine Bi lirubin Negative, Urine Urobilinogen Normal, Ur Leukocyte Esterase 100 H, Urine RBC 0-5 SEEN, Urine WBC 5-10 SEEN, Ur Squamous Epith Cells 0-5 SEEN, Amorphous Sediment 1+, Urine Bacteria 0 SEEN, Urine Mucus 0 SEEN 06/30/21 13:20: Ur Random Sodium 55, Urine Creatinine 41.80 07/01/21 03:50: WBC 8.3, RBC 3.73 L, Hgb 10.6 L, Hct 31.3 L, MCV 83.9 D, MCH 28.4, MCHC 33.9, RDW Std Deviation 46.6 H, RDW Coeff of Kimberlee 15.4 H, Plt Count 110 L, MPV 11.2, Immature Gran % (Auto) 1.100 H, Neut % (Auto) 86.2 H, Lymph % (Auto) 7.7 L, [place] % (Auto) 4.6, Eos % (Auto) 0.0, Baso % (Auto) 0.4, Absolute Neuts (auto) 7.1, Absolute Lymphs (auto) 0.64 L, Nucleated RBC % 0.2, Differential Comment SCANNED, Anisocytosis RARE, Microcytosis RARE 07/01/21 03:50: Sodium 129 L, Potassium 3.2 L, Chloride 95 L, Carbon Dioxide 20.0 L, Anion Gap 14, BUN 75 H, Creatinine 2.90 H, Estim Creat Clear Calc 19.08, Est GFR (MDRD) Af Amer 20 L, Est GFR (MDRD) Non-Af 17 L, BUN/Creatinine Ratio 25.9 H, Glucose 330 H, Calcium 6.9 L, Total Bilirubin 0.50, AST 40 H, ALT 30, Alkaline Phosphatase 167 H, Total Protein 5.3 L, Albumin 1.2 L, Globulin 4.1, Albumin/Globulin Ratio 0.3 L 07/01/21 06:36: POC Glucose 158 H Micro: Microbiology 06/26/21 Unknown Sputum, Induced/Lukens Gram Stain - Final 06/26/21 Unknown Sputum, Induced/Lukens Respiratory Culture - Final Meth. resistant Staph. aureus 06/22/21 13:18 Nasal Secretion SARS-CoV-2 Antigen (Rapid) - Final SARS-CoV-2 (COVID 19) Radiography Diagnostic Testing: Radiology Impression Renal Ultrasound 06/30/21 12:14 IMPRESSION: Extremely limited examination. No evidence of hydronephrosis detected. Electronically Signed: Kavya White MD at 5:15 EST , Service support , Chest X-Ray 06/30/21 13:00 IMPRESSION: Bibasilar infiltrates, left more than right. Electronically Signed: Chago Clarke DO at 17:00 EST Tel [phone], Service support , Physical Exam Const Constitutional Narrative: Fair vent synchrony General Appearance: ill appearing, intubated and patient mechanically ventilated Nutritional Appearance: obese HEENT normocephalic and head/scalp atraumatic Mouth: endotracheal tube in place and OG tube in place Eyes PERRL and EOMs intact bilaterally Neck supple General: trachea midline Chest Chest Narrative: + Crepitus throughout sternum, clavicle and neck Resp Effort and Inspection: mechanically ventilated Auscultation: diminished lung sounds; Negative for rales, rhonchi or wheezes Cardio S1 normal heart sound and S2 normal heart sound Cardio Narrative: Frequent SVT on telemetry with improvement over time Rhythm: abnormal rhythm GI normal to inspection, nondistended, normoactive bowel sounds Extremity no clubbing, cyanosis or edema Skin no rashes or lesions noted Neuro Sensorium / Orientation: sedated on vent Charges/Coding Procedures Hospitalists Procedures: 87100 Critial Care 1st Hr Multi Select Codes Hospitalists' Procedures Procedures: 29555 Critial Care Addl 30 Min
--- NOTE | 2021-07-01 09:59 | CASEMGMT ---
Social Work Telephone call to patient sonHeri (first contact) No answer. No voicemail. Telephone call to patient niece, Nia (second contact), answer. Nia to contact family and update that patient does not have a good prognosis. This manager social responsibility provided Nia with contact information. Nursing reports to have been able to contact Heri and to have updated Heri on patient current status as well. Social Work to continue to follow. Patient with no HCPOA, was able to confirm with Nia that Heri is patient only son and would be next of kin (decision maker). Ellie Bonilla MSW, ALVINS
--- NOTE | 2021-07-01 10:05 | RAD_ITS ---
STUDY: X-RAY CHEST REASON FOR EXAM: Female, 76 years old. Decreased spo2 TECHNIQUE: Single AP portable view of the chest. COMPARISON: Comparison is made with prior study dated 06/30/2021. FINDINGS: An endotracheal tube is in situ. The tip is at 4.1 cm proximal to the tameka. An orogastric tube is seen with the tip below the left hemidiaphragm. A right-sided PICC line catheter is in situ with the tip at the junction of the superior vena cava and right atrium. A right-sided internal jugular venous catheter seen with the tip in the right atrium. Persistent subcutaneous emphysema overlying the lower cervical region. Stable pleural parenchymal changes at the left lung base. Blunting of left costophrenic angle. Stable mild increased markings at the right lung base. Normal size heart. Normal mediastinum and joseph. Normal visualized pulmonary arteries. There is atherosclerotic tortuosity of the aortic arch and descending thoracic aorta. Normal visualized thoracic spine. The patient is status post left shoulder replacement. Healed left-sided rib fractures. There is no demonstrated abnormality of the visualized soft tissue structures of the upper abdomen. RAD/Chest 1 View (Portable) IMPRESSION: Stable examination. All the support tubes are in good position. Electronically Signed: Denny Moreau MD at 10:23 EST , Service support ,
--- NOTE | 2021-07-01 10:13 | DIALYSIS ---
HD x 2 hours complete. Discontinued tx 1 hour early d/t SpO2 in the 60's. Dr. Alvarado is aware. Ran on 3k bath. Positive fluid 400ml post tx. See tx sheet for more details. Report was given to SONIA Chandler.
--- NOTE | 2021-07-01 10:49 | CASEMGMT ---
SOCIAL WORK HPOA/grandson-Mikael, niece-Zainab, and son-Heri are coming in for family meeting with Dr. Mc today. Anticipate arrival around 11:45a-12p. Nursing updated. Aylin. ANGELA Malik, INTERNATIONAL TRAVEL CONSULTANT
--- NOTE | 2021-07-01 10:55 | PCM.PN.REN ---
Subjective Subjective Following for HARLEY. The patient remains intubated and sedated in ICU. Cannot obtain ROS. The patient was seen during hemodialysis treatment. She is tolerating dialysis poorly. She became very tachycardic and hypotensive during treatment. Dialysis was stopped short of goal today. Objective Data Objective Data Vital Signs: Vital Signs Temp Pulse Resp BP Pulse Ox 98.8 F 73 26 H 160/83 H 86 07/01/21 07:00 07/01/21 07:09 07/01/21 07:09 07/01/21 07:00 07/01/21 08:30 Oxygen Flow Rate (L/min) 60 Oxygen Delivery Method Mechanical Ventilator Weight: 72.1 kg Body Mass Index (BMI) 31.4 Intake & Output: Intake and Output for Last 24 Hours 06/29/21 06/30/21 07/01/21 23:59 23:59 23:59 Intake Total 1396.89 / 1875.79 2118.63 / 2252.43 1797.76 / 1797.76 Output Total 95 / 155 1220 / 1345 425 / 425 Balance 1301.89 / 1720.79 898.63 / 907.43 1372.76 / 1372.76 Medical Nutrition Assessment Dietitian: Malnutrition Criteria Met Start: 06/25/21 11:25 Freq: Status: Active Protocol: Document 06/30/21 11:38 TATA (Rec: 06/30/21 11:38 TATA [id number]) Nutrition Malnutrition Evidence of Malnutrition Exists Yes Malnutrition (severe): Acute Illness/Injury Evidenced By Suboptimal Energy Intake ( Severe),Weight Loss (Severe) Clinical Problem Acute Disease or Injury Related Malnutrition Etiology severe, acute malnutrition r/t inadequate energy intake d/t COVID-19 Signs/Symptoms as evidenced by unintentional ~5% wt loss x 5 days; estimated PO intake meeting < 50% of estimated energy needs > 5 days Status Active Problem Recommendation Dietitian Recommendations/Changes NPO while intubated; Rec Vital AF 1.2 at goal rate of 55mL/ hour w/100mL H2O flush every 4 hours to provide 1584 calories, 99 g protein, and 1670mL total fluid/day. Would start at 20mL/hour and increase by 15mL/hour every 8- 12 hours as tolerated until goal rate is achieved. Lab / Micro Data Result Diagrams: 07/01/21 03:50 07/01/21 03:50 Labs: Laboratory Results - last 24 hr 06/28/21 05:30: Diff Path Review Reviewed 06/29/21 03:33: Diff Path Review Reviewed 06/30/21 13:20: Urine Color Yellow, Urine Clarity Sl. Cloudy, Urine pH 5.0, Ur Specific [place] 1.010, Urine Protein 30 H, Urine Glucose (UA) Normal, Urine Ketones Negative, Urine Occult Blood 250 H, Urine Nitrite Negative, Urine Bilirubin Negative, Urine Urobilinogen Normal, Ur Leukocyte Esterase 100 H, Urine RBC 0-5 SEEN, Urine WBC 5-10 SEEN, Ur Squamous Epith Cells 0-5 SEEN, Amorphous Sediment 1+, Urine Bacteria 0 SEEN, Urine Mucus 0 SEEN 06/30/21 13:20: Ur Random Sodium 55, Urine Creatinine 41.80 07/01/21 03:50: WBC 8.3, RBC 3.73 L, Hgb 10.6 L, Hct 31.3 L, MCV 83.9 D, MCH 28.4, MCHC 33.9, RDW Std Deviation 46.6 H, RDW Coeff of [place]lee 15.4 H, Plt Count 110 L, MPV 11.2, Immature Gran % (Auto) 1.100 H, Neut % (Auto) 86.2 H, Lymph % (Auto) 7.7 L, [place] % (Auto) 4.6, Eos % (Auto) 0.0, Baso % (Auto) 0.4, Absolute Neuts (auto) 7.1, Absolute Lymphs (auto) 0.64 L, Nucleated RBC % 0.2, Differential Comment SCANNED, Anisocytosis RARE, Microcytosis RARE 07/01/21 03:50: Sodium 129 L, Potassium 3.2 L, Chloride 95 L, Carbon Dioxide 20.0 L, Anion Gap 14, BUN 75 H, Creatinine 2.90 H, Estim Creat Clear Calc 19.08, Est GFR (MDRD) Af Amer 20 L, Est GFR (MDRD) Non-Af 17 L, BUN/Creatinine Ratio 25.9 H, Glucose 330 H, Calcium 6.9 L, Total Bilirubin 0.50, AST 40 H, ALT 30, Alkaline Phosphatase 167 H, Total Protein 5.3 L, Albumin 1.2 L, Globulin 4.1, Albumin/Globulin Ratio 0.3 L 07/01/21 06:36: POC Glucose 158 H Micro: Microbiology 06/26/21 Unknown Sputum, Induced/Lukens Gram Stain - Final 06/26/21 Unknown Sputum, Induced/Lukens Respiratory Culture - Final Meth. resistant Staph. aureus 06/22/21 13:18 Nasal Secretion SARS-CoV-2 Antigen (Rapid) - Final SARS-CoV-2 (COVID 19) Radiography Diagnostic Testing: Radiology Impression Renal Ultrasound 06/30/21 12:14 IMPRESSION: Extremely limited examination. No evidence of hydronephrosis detected. Electronically Signed: Kavya White MD at 5:15 EST , Service support , Chest X-Ray 06/30/21 13:00 IMPRESSION: Bibasilar infiltrates, left more than right. Electronically Signed: Chago Clarke DO at 17:00 EST Tel [phone], Service support , Chest X-Ray 07/01/21 10:05 IMPRESSION: Stable examination. All the support tubes are in good position. Electronically Signed: Denny Moreau MD at 10:23 EST , Service support , Physical Exam Narrative General appearance: Ill-appearing woman who is on mechanical ventilator. HEENT: The patient is intubated. Mucous membrane moist. Neck: Supple, no JVD. Heart: Normal S1, S2. No rubs or murmurs. Lungs: Coarse breath sound bilaterally. Abdomen: Normal bowel sounds, soft, nontender, no guarding or rebound. Extremity: No clubbing or cyanosis. There is 1+ edema of the lower extremity. Skin: Skin is warm and dry without rash. Assessment & Plan Assessment/Plan (1) HARLEY (acute kidney injury): PLAN: There is no history of significant CKD. Serum creatinine was 1.02 mg/dL as recently as June 26, 2021. HARLEY is due to ischemic ATN related to severe sepsis from COVID-19 pneumonia. The patient has been intermittently on IV norepinephrine. She is anuric. Renal ultrasound did not show hydronephrosis. I have low suspicion for other causes of HARLEY at this point. Given progressively worsening renal function, intermittent need for pressor, and anuria, and acidosis, I started the patient on hemodialysis yesterday. Unfortunately, she is tolerating dialysis poorly. The patient is seen during treatment, blood flow was 300 mL/min. Using 3 mEq potassium dialysate. We are unable to remove any excess fluid today because of hemodynamic instability. Discussed dialysis difficulty with dispute resolution analyst. He will discuss goal of care with the patient's family today which is appropriate. Current medications are reviewed, and they are appropriately dosed for planned IHD. (2) Metabolic acidosis: PLAN: Serum bicarbonate level is better today after the first dialysis. Serum bicarbonate level is 20 mmol/L today. Metabolic acidosis is due to HARLEY. There has been no diarrhea. Serum bicarbonate level should improve and stabilize on IHD. (3) Septic shock: PLAN: The patient has required IV norepinephrine drip. She came off of pressor yesterday morning. Complex coordination of supportive care in ICU as per dispute resolution analyst. (4) Acute hypoxemic respiratory failure due to COVID-19: PLAN: Ventilator dependent. Treatment of COVID-19 pneumonia as per dispute resolution analyst and ID. Ventilator management as per dispute resolution analyst. Unfortunately, the patient has not been able to tolerate ultrafiltration during dialysis.
[2021-07-01] MEDS: Chlorhexidine 15 ML PO ×2 (11:49→22:00)
[2021-07-01] MEDS: CHLORHEXIDINE GLUC 2% CLOTH 1 EACH TOWELETTE TOPICAL (11:50)
[2021-07-01] MEDS: Enoxaparin 60 MG/0.6 ML Syringe SC (11:50)
[2021-07-01] MEDS: 0.9% Saline Lock 10 ML Syringe IV (11:50)
[2021-07-01] MEDS: Polyethylene Glycol 3350 17 GM PACKET PO (11:51)
[2021-07-01] MEDS: Senna/Docusate Sodium 1 Tablet 2 TABLET PO (11:51)
[2021-07-01] MEDS: dexAMETHasone 10 MG/ML Vial 6 MG IV (11:51)
[2021-07-01] MEDS: Nystatin Ointment 1 APPLIC TOPICAL ×2 (11:51→23:29)
[2021-07-01 12:15] LABS: Bedside Glucose 151 mg/dL (70-110)
[2021-07-01 13:14] LABS: Hepatitis B Surface Antigen Non-Reactive (Nonreactive)
--- NOTE | 2021-07-01 13:20 | CASEMGMT ---
SOCIAL WORK Informed by Dr. Mc, family meeting held. Patient's code status is now DNRCC-A with intubation. Patient to have dialysis tomorrow, if unable to tolerate anticipate plan for hospice. SW to remain available. Esmer Malik, TRADE MARKER, MAINTENANCE TEAM LEADER
[2021-07-01 13:47] LABS: Vancomycin, Random Level 17.1 ug/mL (0.0-15.0)
[2021-07-01 16:31] LABS: Bedside Glucose 107 mg/dL (70-110)
[2021-07-01] MEDS: Vital AF 1.2 Cal Liquid 1,000 ML 55 ML GT (23:27)
[2021-07-02] VITALS (32 sets, daily range): BP systolic 100–188; BP diastolic 68–103; PULSE 76–102; RESP 16–38; TEMP 37.5–38.7; O2SAT 87–96
[2021-07-02 00:16] LABS: Bedside Glucose 186 mg/dL (70-110)
[2021-07-02] MEDS: Acetaminophen 650 MG/20 ML UDC GT ×2 (03:10→17:06)
[2021-07-02] MEDS: Insulin Lispro 100 UNIT/ML INSULN.PEN SC ×2 (05:15→10:44)
[2021-07-02] MEDS: Menthol/Lanolin/Calamine/Znox 113 GM Tube 1 APPLIC TOPICAL ×3 (05:16→22:17)
[2021-07-02 07:11] LABS: Absolute Lymphocyte Count 0.43 X10^3/uL (0.83-4.51); Absolute Neutrophil Count 5.3 X10^3/uL (2.0-7.7); Basophil# 0.08 X10^3/uL; Basophil% 1.3 % (0-1); Hematocrit 31.5 % (37-47); Hemoglobin 10.8 g/dL (12.0-15.0); Lymphocyte # 0.43 X10^3/ul (0.83-4.51); Lymphocyte % 7.2 % (19-41); Mean Corp Hgb Conc 34.3 g/dL (32-36); Mean Corpuscular Volume 84.7 fL (81-99); Mean Platelet Vol. 12.3 fl (6.2-12.0); Monocyte# 0.17 X10^3/uL; Monocyte% 2.8 % (0-10); NRBC Flagged by Analyzer 0.3 % (0-5); Neutrophil # 5.27 X10^3/uL (2.7-7.7); POSITIVE COUNT YES; POSITIVE DIFFERENTIAL YES; POSITIVE MORPHOLOGY YES; Platelet Count 71 K/mm3 (150-450); RBC Distribution Width CV 15.3 % (11.6-14.6); RBC Distribution Width SD 46.5 fl (35.1-43.9); Red Blood Count 3.72 M/mm3 (4.2-5.4)
[2021-07-02 07:14] LABS: Differential Indicated SCAN CRITERIA MET
[2021-07-02 07:28] LABS: ALB/GLOB Ratio 0.3 RATIO (0.9-2.4); AST(SGOT) 34 U/L (15-37); Alanine Aminotransfer ALT/SGPT 26 U/L (13-56); Albumin, Serum 1.1 g/dL (3.2-5.0); Alkaline Phosphatase 153 U/L (45-117); Anion Gap 14 (5-15); BUN 65 mg/dL (7-18); BUN/Creat Ratio 26.4 RATIO (10-20); Calcium,Total 7.4 mg/dL (8.5-10.1); Chloride 99 mmol/L (98-107); Creatinine, Serum 2.46 mg/dL (0.55-1.02); EST Glomerular Filtration Rate 20 mL/min (>60); Est Glom Filt Rate - Afr Amer 25 mL/min (>60); Estimated Creatinine Clearance 22.77 ml/min; Globulin 4.1 g/dL (2.2-4.2); Glucose 223 mg/dL (74-106); Potassium 3.3 mmol/L (3.5-5.1); Protein, Total 5.2 g/dL (6.4-8.2); Sodium Level 134 mmol/L (136-145)
--- NOTE | 2021-07-02 07:28 | PN.HOSP_ITS ---
Subjective Subjective Follow-up on acute hypoxic respiratory failure/acute COVID-19 pneumonia/HARLEY: Patient was seen and examined. No acute events overnight. Patient will have dialysis today. Objective Data Objective Data Vital Signs: Vital Signs Temp Pulse Resp BP Pulse Ox 100.0 F H 91 27 H 109/72 94 07/02/21 00:00 07/02/21 06:00 07/02/21 06:00 07/02/21 06:00 07/02/21 06:00 Oxygen Flow Rate (L/min) 60 Oxygen Delivery Method Mechanical Ventilator Weight: 73 kg Body Mass Index (BMI) 31.4 Intake & Output: Intake and Output for Last 24 Hours 06/30/21 07/01/21 07/02/21 23:59 23:59 23:59 Intake Total 2118.63 / 2252.43 2691.41 / 2692.41 529.79 / 529.79 Output Total 1220 / 1345 850 / 850 125 / 125 Balance 898.63 / 907.43 1841.41 / 1842.41 404.79 / 404.79 Medical Nutrition Assessment Dietitian: Malnutrition Criteria Met Start: 06/25/21 11:25 Freq: Status: Active Protocol: Document 06/30/21 11:38 TATA (Rec: 06/30/21 11:38 SLA [id number]) Nutrition Malnutrition Evidence of Malnutrition Exists Yes Malnutrition (severe): Acute Illness/Injury Evidenced By Suboptimal Energy Intake ( Severe),Weight Loss (Severe) Clinical Problem Acute Disease or Injury Related Malnutrition Etiology severe, acute malnutrition r/t inadequate energy intake d/t COVID-19 Signs/Symptoms as evidenced by unintentional ~5% wt loss x 5 days; estimated PO intake meeting < 50% of estimated energy needs > 5 days Status Active Problem Recommendation Dietitian Recommendations/Changes NPO while intubated; Rec Vital AF 1.2 at goal rate of 55mL/ hour w/100mL H2O flush every 4 hours to provide 1584 calories, 99 g protein, and 1670mL total fluid/day. Would start at 20mL/hour and increase by 15mL/hour every 8- 12 hours as tolerated until goal rate is achieved. Lab / Micro Data Result Diagrams: 07/02/21 05:00 07/02/21 05:00 Labs: Laboratory Results - last 24 hr 07/01/21 11:48: POC Glucose 151 H 07/01/21 12:15: Hep Bs Antigen Non-Reactive 07/01/21 12:15: Random Vancomycin 17.1 H 07/01/21 16:26: POC Glucose 107 07/01/21 23:24: POC Glucose 186 H 07/02/21 05:00: WBC 6.0, RBC 3.72 L, Hgb 10.8 L, Hct 31.5 L, MCV 84.7, MCH 29.0, MCHC 34.3, RDW Std Deviation 46.5 H, RDW Coeff of [place] 15.3 H, Plt Count 71 L, MPV 12.3 H, Immature Gran % (Auto) 0.700, Neut % (Auto) 88.0 H, Lymph % (Auto) 7.2 L, [place] % (Auto) 2.8, Eos % (Auto) 0.0, Baso % (Auto) 1.3 H, Absolute Neuts (auto) 5.3, Absolute Lymphs (auto) 0.43 L, Nucleated RBC % 0.3 Micro: Microbiology 06/26/21 Unknown Sputum, Induced/Lukens Gram Stain - Final 06/26/21 Unknown Sputum, Induced/Lukens Respiratory Culture - Final Meth. resistant Staph. aureus 06/22/21 13:18 Nasal Secretion SARS-CoV-2 Antigen (Rapid) - Final SARS-CoV-2 (COVID 19) Radiography Diagnostic Testing: Radiology Impression Chest X-Ray 07/01/21 10:05 IMPRESSION: Stable examination. All the support tubes are in good position. Electronically Signed: Denny Moreau MD at 10:23 EST , Service support , Physical Exam Narrative Physical exam: General: Sedated, intubated HEENT: Atraumatic, subcutaneous emphysema of the neck and chest, right-sided dialysis catheter Oral: Moist Mucosa Neck: Supple Lungs: Diminished to auscultation Cardiovascular: HS I+II, regular, no murmurs Abdomen: Bowel Sounds Present, Soft, Non Tender Extremities: No edema Assessment & Plan Assessment/Plan (1) COVID-19: (2) Acute hypoxemic respiratory failure due to COVID-19: PLAN: 1. Acute hypoxic respiratory failure secondary to acute COVID-19 pneumonia/acute pneumomediastinum/MRSA pneumonia Oxygen requirements is slightly was about the same; PEEP of 12, FiO2 100% Patient remains intubated, sedated. Continue on dexamethasone and vancomycin with pharmacy to dose Off remdesivir 2. A. fib with RVR, heart rate is better controlled, continue on amiodarone drip 3. HARLEY on CKD stage IIIb, creatinine is worse, Started on dialysis 06/30/20, dialysis planned for today Nephrology following 4. Elevated D-dimer, continue on Lovenox SC 5. Severe protein -calorie malnutrition, school bus driver/custodian consulted, on supplements 6. DVT PPx- On Lovenox SC Charges/Coding Visit Charges Inpatient E&M: 28380 Subs Hosp L3
[2021-07-02 07:32] LABS: Vancomycin, Random Level 16.7 ug/mL (0.0-15.0)
--- NOTE | 2021-07-02 07:56 | PN.CC_ITS ---
Assessment & Plan Assessment/Plan (1) Acute hypoxemic respiratory failure due to COVID-19: (2) COVID-19: PLAN: RECOMMENDATIONS: 1. Continue patient on assist control and wean FiO2/PEEP for saturations greater than 90%. 2. Continue vancomycin with pharmacy to dose 3. Continue therapeutic Lovenox (dose adjusted for renal function) 4. Continue Decadron to complete 10 days of therapy. 5. Resumed tube feeds if feasible. Aggressive bowel regimen 6. Continue appropriate GI prophylaxis. 7. Dialysis per nephrology recommendations. Volume removal if possible. 8. Possibly wean PEEP if able to remove volume IMPRESSIONS: 1. Acute hypoxemic respiratory failure secondary to COVID-19/MRSA pneumonia The patient was initially admitted to the hospital on June 22 with COVID-19 pneumonia. Her hospital course has been complicated by worsening respiratory status, culminating in transfer to the ICU on June 24 to be placed on noninvasive positive pressure ventilatory support. Unfortunately, the patient failed to improve on continuous BiPAP support and required intubation on June 26. She will be continued on assist control mode mechanical ventilation. FiO2 and PEEP will be weaned for saturations greater than 90%. In the interim, plan to continue current supportive measures decadron and Lovenox as ordered. Although her initial CTA chest was negative for PE, follow-up D- dimer was notably elevated at 14. Therefore, the patient will be continued on therapeutic Lovenox. Unfortunately, PEEP has had to be increased over the last 24 hours, likely secondary to volume overload. Crepitus appears to be stable, but exacerbation of pneumomediastinum is possible with increased PEEP. 2. Distributive shock Likely secondary to acute infectious etiology coupled with the hemodynamic impact of sedative medication use. Continue vasopressor support to maintain mean arterial pressure at or above 65 mmHg. 3. SVT/Atrial Fibrillation The patient appears to be in atrial fibrillation with a rapid ventricular rate. Patient appears to have responded to amiodarone. Clinical suspicion for development of A. fib secondary to pneumomediastinum. 4. Acute kidney injury Patient now on hemodialysis. Avoid nephrotoxic medications. No hydronephrosis noted on renal ultrasound. Unable to tolerate hemodialysis yesterday. If this persists, anticipate palliative measures given family meeting yesterday. Patient would benefit from moderate volume removal as patient continues to be positive on a daily basis. TIME: 33 minutes of critical care time, independent of procedures, was spent addressing the patient's acute hypoxemic respiratory failure secondary to COVID- 19 pneumonia, acute kidney injury, distributive shock, atrial fibrillation, review of all data and collaboration with the care team. Subjective Subjective Patient did okay overnight. Patient did relatively stabilize following cessation of hemodialysis yesterday. Patient is still requiring 100% to maintain saturations. No pressors have been required. Family meeting yesterday. Will attempt dialysis today. If unable to tolerate, anticipate palliative measures. If patient is able to tolerate dialysis, anticipate continued aggressive care. Objective Data Objective Data Vital Signs: Vital Signs Temp Pulse Resp BP Pulse Ox 37.8 C H 80 25 H 109/72 94 07/02/21 00:00 07/02/21 07:46 07/02/21 07:46 07/02/21 06:00 07/02/21 07:46 Oxygen Flow Rate (L/min) 60 Oxygen Delivery Method Mechanical Ventilator Weight: 73 kg Body Mass Index (BMI) 31.4 Intake & Output: Intake and Output for Last 24 Hours 06/30/21 07/01/21 07/02/21 23:59 23:59 23:59 Intake Total 2118.63 / 2252.43 2691.41 / 2692.41 529.79 / 529.79 Output Total 1220 / 1345 850 / 850 125 / 125 Balance 898.63 / 907.43 1841.41 / 1842.41 404.79 / 404.79 Medical Nutrition Assessment Dietitian: Malnutrition Criteria Met Start: 06/25/21 11:25 Freq: Status: Active Protocol: Document 06/30/21 11:38 TATA (Rec: 06/30/21 11:38 TATA [id number]) Nutrition Malnutrition Evidence of Malnutrition Exists Yes Malnutrition (severe): Acute Illness/Injury Evidenced By Suboptimal Energy Intake ( Severe),Weight Loss (Severe) Clinical Problem Acute Disease or Injury Related Malnutrition Etiology severe, acute malnutrition r/t inadequate energy intake d/t COVID-19 Signs/Symptoms as evidenced by unintentional ~5% wt loss x 5 days; estimated PO intake meeting < 50% of estimated energy needs > 5 days Status Active Problem Recommendation Dietitian Recommendations/Changes NPO while intubated; Rec Vital AF 1.2 at goal rate of 55mL/ hour w/100mL H2O flush every 4 hours to provide 1584 calories, 99 g protein, and 1670mL total fluid/day. Would start at 20mL/hour and increase by 15mL/hour every 8- 12 hours as tolerated until goal rate is achieved. Lab / Micro Data Result Diagrams: 07/02/21 05:00 07/02/21 05:00 Labs: Laboratory Results - last 24 hr 07/01/21 11:48: POC Glucose 151 H 07/01/21 12:15: Hep Bs Antigen Non-Reactive 07/01/21 12:15: Random Vancomycin 17.1 H 07/01/21 16:26: POC Glucose 107 07/01/21 23:24: POC Glucose 186 H 07/02/21 05:00: WBC 6.0, RBC 3.72 L, Hgb 10.8 L, Hct 31.5 L, MCV 84.7, MCH 29.0, MCHC 34.3, RDW Std Deviation 46.5 H, RDW Coeff of Kimberlee 15.3 H, Plt Count 71 L, MPV 12.3 H, Immature Gran % (Auto) 0.700, Neut % (Auto) 88.0 H, Lymph % (Auto) 7.2 L, [place] % (Auto) 2.8, Eos % (Auto) 0.0, Baso % (Auto) 1.3 H, Absolute Neuts (auto) 5.3, Absolute Lymphs (auto) 0.43 L, Nucleated RBC % 0.3 07/02/21 05:00: Sodium 134 L, Potassium 3.3 L, Chloride 99, Carbon Dioxide 21.0, Anion Gap 14, BUN 65 H, Creatinine 2.46 H, Estim Creat Clear Calc 22.77, Est GFR (MDRD) Af Amer 25 L, Est GFR (MDRD) Non-Af 20 L, BUN/Creatinine Ratio 26.4 H, Gl ucose 223 H, Calcium 7.4 L, Total Bilirubin 0.40, AST 34, ALT 26, Alkaline Phosphatase 153 H, Total Protein 5.2 L, Albumin 1.1 L, Globulin 4.1, Albumin/Globulin Ratio 0.3 L 07/02/21 05:00: Random Vancomycin 16.7 H Micro: Microbiology 06/26/21 Unknown Sputum, Induced/Lukens Gram Stain - Final 06/26/21 Unknown Sputum, Induced/Lukens Respiratory Culture - Final Meth. resistant Staph. aureus 06/22/21 13:18 Nasal Secretion SARS-CoV-2 Antigen (Rapid) - Final SARS-CoV-2 (COVID 19) Radiography Diagnostic Testing: Radiology Impression Chest X-Ray 07/01/21 10:05 IMPRESSION: Stable examination. All the support tubes are in good position. Electronically Signed: Denny Moreau MD at 10:23 EST , Service support , Physical Exam Const Constitutional Narrative: Fair vent synchrony General Appearance: ill appearing, intubated and patient mechanically ventilated Nutritional Appearance: obese HEENT normocephalic and head/scalp atraumatic Mouth: endotracheal tube in place and OG tube in place Eyes PERRL and EOMs intact bilaterally Neck supple General: trachea midline Chest Chest Narrative: + Crepitus throughout sternum, clavicle and neck. Relatively unchanged Resp Effort and Inspection: mechanically ventilated Auscultation: diminished lung sounds; Negative for rales, rhonchi or wheezes Cardio S1 normal heart sound and S2 normal heart sound Cardio Narrative: Frequent SVT on telemetry with improvement over time Rhythm: abnormal rhythm GI normal to inspection, nondistended, normoactive bowel sounds Extremity no clubbing, cyanosis or edema Skin no rashes or lesions noted Neuro Sensorium / Orientation: sedated on vent Charges/Coding Procedures Hospitalists Procedures: 77349 Critial Care 1st Hr
[2021-07-02 08:03] LABS: Platelet Estimate MOD DEC (ADEQ)
[2021-07-02 08:30] LABS: Bedside Glucose 195 mg/dL (70-110)
[2021-07-02] MEDS: Nystatin Ointment 1 APPLIC TOPICAL ×2 (10:39→22:17)
[2021-07-02] MEDS: dexAMETHasone 10 MG/ML Vial 6 MG IV (10:40)
[2021-07-02] MEDS: Chlorhexidine 15 ML PO ×2 (10:40→22:19)
[2021-07-02] MEDS: Polyethylene Glycol 3350 17 GM PACKET PO ×2 (10:40→22:18)
[2021-07-02] MEDS: CHLORHEXIDINE GLUC 2% CLOTH 1 EACH TOWELETTE TOPICAL (10:41)
[2021-07-02] MEDS: Senna/Docusate Sodium 1 Tablet 2 TABLET PO ×2 (10:42→22:17)
[2021-07-02 11:16] LABS: Bedside Glucose 201 mg/dL (70-110)
--- NOTE | 2021-07-02 14:21 | PCM.PN.REN ---
Subjective Subjective Following for HARLEY. The patient seen during hemodialysis treatment. She is intubated and sedated. Cannot do ROS. Still on high FiO2 and PEEP. Otherwise, there has been no significant changes over the last 12 hours. Objective Data Objective Data Vital Signs: Vital Signs Temp Pulse Resp BP Pulse Ox 99.5 F H 91 35 H 100/71 93 07/02/21 14:00 07/02/21 14:00 07/02/21 14:00 07/02/21 14:00 07/02/21 14:00 Oxygen Flow Rate (L/min) 60 Oxygen Delivery Method Mechanical Ventilator Weight: 73 kg Body Mass Index (BMI) 31.4 Intake & Output: Intake and Output for Last 24 Hours 06/30/21 07/01/21 07/02/21 23:59 23:59 23:59 Intake Total 2118.63 / 2252.43 2691.41 / 2692.41 904.00 / 904.00 Output Total 1220 / 1345 850 / 850 125 / 125 Balance 898.63 / 907.43 1841.41 / 1842.41 779.00 / 779.00 Medical Nutrition Assessment Dietitian: Malnutrition Criteria Met Start: 06/25/21 11:25 Freq: Status: Active Protocol: Document 06/30/21 11:38 TATA (Rec: 06/30/21 11:38 SLA [id number]) Nutrition Malnutrition Evidence of Malnutrition Exists Yes Malnutrition (severe): Acute Illness/Injury Evidenced By Suboptimal Energy Intake ( Severe),Weight Loss (Severe) Clinical Problem Acute Disease or Injury Related Malnutrition Etiology severe, acute malnutrition r/t inadequate energy intake d/t COVID-19 Signs/Symptoms as evidenced by unintentional ~5% wt loss x 5 days; estimated PO intake meeting < 50% of estimated energy needs > 5 days Status Active Problem Recommendation Dietitian Recommendations/Changes NPO while intubated; Rec Vital AF 1.2 at goal rate of 55mL/ hour w/100mL H2O flush every 4 hours to provide 1584 calories, 99 g protein, and 1670mL total fluid/day. Would start at 20mL/hour and increase by 15mL/hour every 8- 12 hours as tolerated until goal rate is achieved. Lab / Micro Data Result Diagrams: 07/02/21 05:00 07/02/21 05:00 Labs: Laboratory Results - last 24 hr 07/01/21 16:26: POC Glucose 107 07/01/21 23:24: POC Glucose 186 H 07/02/21 05:00: WBC 6.0, RBC 3.72 L, Hgb 10.8 L, Hct 31.5 L, MCV 84.7, MCH 29.0, MCHC 34.3, RDW Std Deviation 46.5 H, RDW Coeff of Kimberlee 15.3 H, Plt Count 71 L, MPV 12.3 H, Immature Gran % (Auto) 0.700, Neut % (Auto) 88.0 H, Lymph % (Auto) 7.2 L, [place] % (Auto) 2.8, Eos % (Auto) 0.0, Baso % (Auto) 1.3 H, Absolute Neuts (auto) 5.3, Absolute Lymphs (auto) 0.43 L, Nucleated RBC % 0.3, Differential Comment COMMENT, Platelet Estimate MOD 07/02/21 05:00: Sodium 134 L, Potassium 3.3 L, Chloride 99, Carbon Dioxide 21.0, Anion Gap 14, BUN 65 H, Creatinine 2.46 H, Estim Creat Clear Calc 22.77, Est GFR (MDRD) Af Amer 25 L, Est GFR (MDRD) Non-Af 20 L, BUN/Creatinine Ratio 26.4 H, Glucose 223 H, Calcium 7.4 L, Total Bilirubin 0.40, AST 34, ALT 26, Alkaline Phosphatase 153 H, Total Protein 5.2 L, Albumin 1.1 L, Globulin 4.1, Albumin/Globulin Ratio 0.3 L 07/02/21 05:00: Random Vancomycin 16.7 H 07/02/21 05:14: POC Glucose 195 H 07/02/21 10:35: POC Glucose 201 H Micro: Microbiology 06/26/21 Unknown Sputum, Induced/Lukens Gram Stain - Final 06/26/21 Unknown Sputum, Induced/Lukens Respiratory Culture - Final Meth. resistant Staph. aureus 06/22/21 13:18 Nasal Secretion SARS-CoV-2 Antigen (Rapid) - Final SARS-CoV-2 (COVID 19) Physical Exam Narrative General appearance: Ill-appearing woman who is on mechanical ventilator. HEENT: The patient is intubated. Mucous membrane moist. Neck: Supple, no JVD. Heart: Normal S1, S2. No rubs or murmurs. Lungs: Coarse breath sound bilaterally. Abdomen: Normal bowel sounds, soft, nontender, no guarding or rebound. Extremity: No clubbing or cyanosis. There is 2+ edema of the lower extremity. Assessment & Plan Assessment/Plan (1) HARLEY (acute kidney injury): PLAN: There is no history of significant CKD. Serum creatinine was 1.02 mg/dL as recently as June 26, 2021. HARLEY is due to ischemic ATN related to severe sepsis from COVID-19 pneumonia. The patient had been intermittently on IV norepinephrine. Urine output has picked up but she is still oliguric. Given progressively worsening renal function, intermittent need for pressor, and anuria, and acidosis, I started the patient on hemodialysis on 06/30/2021. The patient is tolerating dialysis better today. There is no hypotension or desaturation so far during today's dialysis. She should be okay without diffusive solute clearance tomorrow. However, I will discuss ultrafiltration tomorrow with test engineering technician if this would help with ventilation. Current medications are reviewed, and they are appropriately dosed for planned IHD. (2) Metabolic acidosis: PLAN: Serum bicarbonate level is better today after the first dialysis. Serum bicarbonate level is 21 mmol/L today. Metabolic acidosis is due to HARLEY. There has been no diarrhea. Serum bicarbonate level should improve and stabilize on IHD. (3) Septic shock: PLAN: The patient had required IV norepinephrine drip. She came off of pressor on 06/30/2021. Complex coordination of supportive care in ICU as per test engineering technician. (4) Acute hypoxemic respiratory failure due to COVID-19: PLAN: Ventilator dependent. Treatment of COVID-19 pneumonia as per test engineering technician and ID. Ventilator management as per test engineering technician.
--- NOTE | 2021-07-02 15:16 | DIALYSIS ---
HD x 3 hours complete. Tolerated fairly well. Ran on 4k bath. UF of 1000ml. Used temporary dialysis catheter. Lumens closed with heparin per fill volume. Caps placed. Dressing is intact. See tx sheet for more details. Report was given to SONIA Chandler
--- NOTE | 2021-07-02 15:20 | PCM.RX.CS ---
Consult Pharmacy has been consulted to manage selected antiobiotic: Vancomycin Type of Consult: Follow-up Prior Doses of Antibiotics Received/Current Regimen: the last dose of vanc was 1000mg X1 on 06/28/21 at 12:43 Labs: Sodium 134 mmol/L (136-145) L 07/02/21 05:00 Potassium 3.3 mmol/L (3.5-5.1) L 07/02/21 05:00 Chloride 99 mmol/L (98-107) 07/02/21 05:00 Carbon Dioxide 21.0 mmol/L (21.0-32.0) 07/02/21 05:00 Anion Gap 14 (5-15) 07/02/21 05:00 BUN 65 mg/dL (7-18) H 07/02/21 05:00 Creatinine 2.46 mg/dL (0.55-1.02) H 07/02/21 05:00 Est GFR (MDRD) Af Amer 25 mL/min (>60) L 07/02/21 05:00 Est GFR (MDRD) Non-Af 20 mL/min (>60) L 07/02/21 05:00 BUN/Creatinine Ratio 26.4 RATIO (10-20) H 07/02/21 05:00 Glucose 223 mg/dL (74-106) H 07/02/21 05:00 Random Vancomycin 16.7 ug/mL (0.0-15.0) H 07/02/21 05:00 Microbiology: Microbiology 06/26/21 Unknown Sputum, Induced/Lukens Gram Stain - Final 06/26/21 Unknown Sputum, Induced/Lukens Respiratory Culture - Final Meth. resistant Staph. aureus 06/22/21 13:18 Nasal Secretion SARS-CoV-2 Antigen (Rapid) - Final SARS-CoV-2 (COVID 19) Weight used for dosin kg Estimated Creatinine Clearance: 22.8ml/min Goal Trough: 15-20 mcg/mL Pharmacy Plan for Drug Dosing: The vanc random level drawn at 05:00 today came back as 16.7. The patient is getting dialysis today so will give a dose of vanc 500mg X1 after dialysis later today. Will recheck a random level tomorrow morning in case the patient gets dialysis again tomorrow. Pharmacy Service will continue to monitor and adjust dosing as required. Follow-Up Labs: Trough Vancomycin - random pre-dialysis Labs to be done on [date and time ordered]: 07/03/21 06:00
[2021-07-02] MEDS: Heparin 10,000 UNITS/10 ML Vial 2800 UNITS IV (15:38)
[2021-07-02 15:41] LABS: Bedside Glucose 126 mg/dL (70-110)
[2021-07-02] MEDS: Vancomycin IV 500 MG/100 ML BAG 100 MG IV (16:31)
[2021-07-02] MEDS: Vital AF 1.2 Cal Liquid 1,000 ML 55 ML GT (16:32)
[2021-07-02 22:15] LABS: Bedside Glucose 142 mg/dL (70-110)
[2021-07-03] VITALS (37 sets, daily range): BP systolic 85–175; BP diastolic 62–92; PULSE 74–117; RESP 15–34; TEMP 37.2–38.8; O2SAT 60–100
[2021-07-03] MEDS: Acetaminophen 650 MG/20 ML UDC GT ×2 (05:28→15:36)
[2021-07-03] MEDS: Menthol/Lanolin/Calamine/Znox 113 GM Tube 1 APPLIC TOPICAL ×2 (05:29→11:56)
[2021-07-03] MEDS: 0.9% Saline Lock 10 ML Syringe IV ×2 (05:31→11:37)
[2021-07-03 05:49] LABS: Basophil# 0.08 X10^3/uL; Eosinophil# 0.06 X10^3/uL; Hematocrit 31.5 % (37-47); Hemoglobin 10.7 g/dL (12.0-15.0); Mean Corpuscular Hgb 28.6 pg (27.0-32.0); Mean Corpuscular Volume 84.2 fL (81-99); Mean Platelet Vol. 12.1 fl (6.2-12.0); Monocyte# 0.12 X10^3/uL; NRBC Flagged by Analyzer 0.2 % (0-5); POSITIVE COUNT YES; POSITIVE DIFFERENTIAL YES; POSITIVE MORPHOLOGY YES; Platelet Count 57 K/mm3 (150-450); RBC Distribution Width SD 49.4 fl (35.1-43.9); Red Blood Count 3.74 M/mm3 (4.2-5.4)
[2021-07-03 05:51] LABS: Differential Indicated SCAN CRITERIA MET
[2021-07-03 06:11] LABS: ALB/GLOB Ratio 0.2 RATIO (0.9-2.4); AST(SGOT) 63 U/L (15-37); Alanine Aminotransfer ALT/SGPT 42 U/L (13-56); Albumin, Serum 1.1 g/dL (3.2-5.0); Alkaline Phosphatase 183 U/L (45-117); Anion Gap 11 (5-15); BUN 48 mg/dL (7-18); BUN/Creat Ratio 23.9 RATIO (10-20); Calcium,Total 7.5 mg/dL (8.5-10.1); Chloride 98 mmol/L (98-107); Creatinine, Serum 2.01 mg/dL (0.55-1.02); EST Glomerular Filtration Rate 26 mL/min (>60); Est Glom Filt Rate - Afr Amer 31 mL/min (>60); Estimated Creatinine Clearance 28.29 ml/min; Globulin 4.5 g/dL (2.2-4.2); Glucose 140 mg/dL (74-106); Potassium 3.8 mmol/L (3.5-5.1); Protein, Total 5.6 g/dL (6.4-8.2); Sodium Level 133 mmol/L (136-145); Vancomycin, Random Level 17.6 ug/mL (0.0-15.0)
[2021-07-03 06:17] LABS: Scan Smear per Review Criteria MANUAL DIFF
[2021-07-03 06:21] LABS: Eosinophil 2 % (0-5); Lymphocyte 4 % (19-41); Neutrophil-Band 8 % (0-5); Neutrophil-Segmented 86 % (47-70); Nucleated Red Bld Cells,Manual 2 % (0-5); Total Cells Counted 100 (MANUAL DIFF)
[2021-07-03 06:23] LABS: Absolute Neutrophil Count 9.4 X10^3/uL (2.0-7.7); Neutrophil # 9.39 X10^3/uL (2.7-7.7)
[2021-07-03 06:25] LABS: Platelet Estimate MOD DEC (ADEQ); Red Cell Morphology NORM C+C NORMAL (NORM C&C)
--- NOTE | 2021-07-03 07:36 | PN.CC_ITS ---
Assessment & Plan Assessment/Plan (1) Acute hypoxemic respiratory failure due to COVID-19: (2) COVID-19: PLAN: RECOMMENDATIONS: 1. Continue patient on assist control and wean FiO2/PEEP for saturations greater than 90%. 2. Continue vancomycin with pharmacy to dose for 10 days 3. Holding Lovenox secondary to thrombocytopenia. Defer to nephrology if heparin should be avoided with dialysis 4. Completed Decadron 5. Continue tube feeds if feasible. Aggressive bowel regimen 6. Continue appropriate GI prophylaxis. 7. Dialysis per nephrology recommendations. Volume removal if possible. 8. Possibly wean PEEP if able to remove volume IMPRESSIONS: 1. Acute hypoxemic respiratory failure secondary to COVID-19/MRSA pneumonia The patient was initially admitted to the hospital on June 22 with COVID-19 pneumonia. Her hospital course has been complicated by worsening respiratory status, culminating in transfer to the ICU on June 24 to be placed on noninvasive positive pressure ventilatory support. Unfortunately, the patient failed to improve on continuous BiPAP support and required intubation on June 26. She will be continued on assist control mode mechanical ventilation. FiO2 and PEEP will be weaned for saturations greater than 90%. In the interim, plan to continue current supportive measures decadron. Although her initial CTA chest was negative for PE, follow-up D-dimer was notably elevat ed at 14. Therefore, the patient will be continued on therapeutic Lovenox. PEEP has been stable, but oxygenation is improving. Hope to wean PEEP to limit/resolve pneumomediastinum 2. Distributive shock Likely secondary to acute infectious etiology coupled with the hemodynamic impact of sedative medication use. Continue vasopressor support to maintain mean arterial pressure at or above 65 mmHg. 3. SVT/Atrial Fibrillation The patient appears to be in atrial fibrillation with a rapid ventricular rate. Patient appears to have responded to amiodarone. Clinical suspicion for development of A. fib secondary to pneumomediastinum. 4. Acute kidney injury Patient now on hemodialysis. Avoid nephrotoxic medications. No hydronephrosis noted on renal ultrasound. Unable to tolerate hemodialysis yesterday. If this persists, anticipate palliative measures given family meeting yesterday. Patient would benefit from moderate volume removal as patient continues to be positive on a daily basis. Addendum 12:07 PM: Called to evaluate the patient at around 11 AM secondary to desaturation while on hemodialysis. Patient was transiently increased on PEEP without improvement. Hemodialysis was discontinued, but was able to remove approximately 800 cc. A stat chest x-ray was obtained showing no tension pneumothorax. Patient was given succinyl choline 100 mg and saturations did improve. Patient will be started on a paralytic drip to help with vent synchrony and to avoid worsening of pneumomediastinum. Addendum 1:33 PM: Patient has persisted in being hypoxic despite paralytics. Subcutaneous emphysema is slightly worse compared to previous. Given continued desaturation and concern for worsening pneumomediastinum, patient will be placed on proning trials. Family updated on situation by nursing. TIME: 74 minutes of critical care time, independent of procedures, was spent addressing the patient's acute hypoxemic respiratory failure secondary to COVID- 19 pneumonia, acute kidney injury, distributive shock, atrial fibrillation, review of all data and collaboration with the care team. Subjective Subjective Patient able to tolerate hemodialysis yesterday. Nephrology is planning on volume removal today. Patient's oxygen requirements have slightly improved. Tube feeds remain at goal. Patient's amnio drip has been discontinued and tachycardia has been well controlled. Patient continues to have intermittent fever Objective Data Objective Data Vital Signs: Vital Signs Temp Pulse Resp BP Pulse Ox 38.4 C H 97 25 H 126/66 H 91 07/03/21 07:00 07/03/21 07:00 07/03/21 07:00 07/03/21 07:00 07/03/21 07:00 Oxygen Flow Rate (L/min) 60 Oxygen Delivery Method Mechanical Ventilator Weight: 74.1 kg Body Mass Index (BMI) 31.4 Intake & Output: Intake and Output for Last 24 Hours 07/01/21 07/02/21 07/03/21 23:59 23:59 23:59 Intake Total 2691.41 / 2692.41 2513.67 / 2526.17 633.5 / 633.5 Output Total 850 / 850 1445 / 1445 175 / 175 Balance 1841.41 / 1842.41 1068.67 / 1081.17 458.5 / 458.5 Medical Nutrition Assessment Dietitian: Malnutrition Criteria Met Start: 06/25/21 11:25 Freq: Status: Active Protocol: Document 06/30/21 11:38 TATA (Rec: 06/30/21 11:38 TATA [id number]) Nutrition Malnutrition Evidence of Malnutrition Exists Yes Malnutrition (severe): Acute Illness/Injury Evidenced By Suboptimal Energy Intake ( Severe),Weight Loss (Severe) Clinical Problem Acute Disease or Injury Related Malnutrition Etiology severe, acute malnutrition r/t inadequate energy intake d/t COVID-19 Signs/Symptoms as evidenced by unintentional ~5% wt loss x 5 days; estimated PO intake meeting < 50% of estimated energy needs > 5 days Status Active Problem Recommendation Dietitian Recommendations/Changes NPO while intubated; Rec Vital AF 1.2 at goal rate of 55mL/ hour w/100mL H2O flush every 4 hours to provide 1584 calories, 99 g protein, and 1670mL total fluid/day. Would start at 20mL/hour and increase by 15mL/hour every 8- 12 hours as tolerated until goal rate is achieved. Lab / Micro Data Result Diagrams: 07/03/21 05:25 07/03/21 05:25 Labs: Laboratory Results - last 24 hr 07/02/21 05:00: Differential Comment COMMENT, Platelet Estimate MOD DEC 07/02/21 05:14: POC Glucose 195 H 07/02/21 10:35: POC Glucose 201 H 07/02/21 15:21: POC Glucose 126 H 07/02/21 22:08: POC Glucose 142 H 07/03/21 05:25: WBC 10.0, RBC 3.74 L, Hgb 10.7 L, Hct 31.5 L, MCV 84.2, MCH 28.6, MCHC 34.0, RDW Std Deviation 49.4 H, RDW Coeff of Kimberlee 16.0 H, Plt Count 57 L, MPV 12.1 H, Immature Gran % (Auto) TRANSIT SPECIALIST, Neut % (Auto) TRANSIT SPECIALIST, Lymph % (Auto) TRANSIT SPECIALIST, [place] % (Auto) TRANSIT SPECIALIST, Eos % (Auto) TRANSIT SPECIALIST, Baso % (Auto) TRANSIT SPECIALIST, Absolute Neuts (auto) 9.4 H , Absolute Lymphs (auto) 0.40 L, Total Counted 100, Neutrophils % (Manual) 86 H, Band Neutrophils % 8 H, Lymphocytes % (Manual) 4 L, Eosinophils % (Manual) 2, Nucleated RBC % 0.2, Nucleated RBCs/100 WBC 2, Diff Path Review May foll, Platelet Estimate MOD DEC, RBC Morphology NORM C+C 07/03/21 05:25: Sodium 133 L, Potassium 3.8, Chloride 98, Carbon Dioxide 24.0, Anion Gap 11, BUN 48 H, Creatinine 2.01 H, Estim Creat Clear Calc 28.29, Est GFR (MDRD) Af Amer 31 L, Est GFR (MDRD) Non-Af 26 L, BUN/Creatinine Ratio 23.9 H, Glucose 140 H, Calcium 7.5 L, Total Bilirubin 0.50, AST 63 H, ALT 42, Alkaline Phosphatase 183 H, Total Protein 5.6 L, Albumin 1.1 L, Globulin 4.5 H, Albumin/Globulin Ratio 0.2 L 07/03/21 05:25: Random Vancomycin 17.6 H Micro: Microbiology 06/26/21 Unknown Sputum, Induced/Lukens Gram Stain - Final 06/26/21 Unknown Sputum, Induced/Lukens Respiratory Culture - Final Meth. resistant Staph. aureus 06/22/21 13:18 Nasal Secretion SARS-CoV-2 Antigen (Rapid) - Final SARS-CoV-2 (COVID 19) Physical Exam Const Constitutional Narrative: Fair vent synchrony General Appearance: ill appearing, intubated and patient mechanically ventilated Nutritional Appearance: obese HEENT normocephalic and head/scalp atraumatic Mouth: endotracheal tube in place and OG tube in place Eyes PERRL and EOMs intact bilaterally Neck supple General: trachea midline Chest Chest Narrative: + Crepitus throughout sternum, clavicle and neck. Relatively unchanged Resp Effort and Inspection: mechanically ventilated Auscultation: diminished lung sounds; Negative for rales, rhonchi or wheezes Cardio S1 normal heart sound and S2 normal heart sound Cardio Narrative: Unchanged Rhythm: abnormal rhythm GI normal to inspection, nondistended, normoactive bowel sounds Extremity General Extremity: edema; Negative for clubbing or cyanosis Skin no rashes or lesions noted Neuro Sensorium / Orientation: sedated on vent Charges/Coding Procedures Hospitalists Procedures: [id number] Critial Care 1st Hr Multi [employer] Codes Hospitalists' Procedures Procedures: [id number] Critial Care Addl 30 Min
[2021-07-03 08:11] LABS: Bedside Glucose 149 mg/dL (70-110)
--- NOTE | 2021-07-03 08:24 | PN.HOSP_ITS ---
Subjective Subjective Follow-up on acute hypoxic respiratory failure/acute COVID-19 pneumonia/HARLEY: Patient was seen and examined. Overnight, patient is off amiodarone. She is going to have dialysis today. Objective Data Objective Data Vital Signs: Vital Signs Temp Pulse Resp BP Pulse Ox 101.2 F H 101 H 32 H 126/66 H 91 07/03/21 07:00 07/03/21 07:36 07/03/21 07:36 07/03/21 07:00 07/03/21 07:36 Oxygen Flow Rate (L/min) 60 Oxygen Delivery Method Mechanical Ventilator Weight: 74.1 kg Body Mass Index (BMI) 31.4 Intake & Output: Intake and Output for Last 24 Hours 07/01/21 07/02/21 07/03/21 23:59 23:59 23:59 Intake Total 2691.41 / 2692.41 2513.67 / 2526.17 639.33 / 639.33 Output Total 850 / 850 1445 / 1445 175 / 175 Balance 1841.41 / 1842.41 1068.67 / 1081.17 464.33 / 464.33 Medical Nutrition Assessment Dietitian: Malnutrition Criteria Met Start: 06/25/21 11:25 Freq: Status: Active Protocol: Document 06/30/21 11:38 TATA (Rec: 06/30/21 11:38 [facility] [id number]) Nutrition Malnutrition Evidence of Malnutrition Exists Yes Malnutrition (severe): Acute Illness/Injury Evidenced By Suboptimal Energy Intake ( Severe),Weight Loss (Severe) Clinical Problem Acute Disease or Injury Related Malnutrition Etiology severe, acute malnutrition r/t inadequate energy intake d/t COVID-19 Signs/Symptoms as evidenced by unintentional ~5% wt loss x 5 days; estimated PO intake meeting < 50% of estimated energy needs > 5 days Status Active Problem Recommendation Dietitian Recommendations/Changes NPO while intubated; Rec Vital AF 1.2 at goal rate of 55mL/ hour w/100mL H2O flush every 4 hours to provide 1584 calories, 99 g protein, and 1670mL total fluid/day. Would start at 20mL/hour and increase by 15mL/hour every 8- 12 hours as tolerated until goal rate is achieved. Lab / Micro Data Result Diagrams: 07/03/21 05:25 07/03/21 05:25 Labs: Laboratory Results - last 24 hr 07/02/21 05:14: POC Glucose 195 H 07/02/21 10:35: POC Glucose 201 H 07/02/21 15:21: POC Glucose 126 H 07/02/21 22:08: POC Glucose 142 H 07/03/21 05:20: POC Glucose 149 H 07/03/21 05:25: WBC 10.0, RBC 3.74 L, Hgb 10.7 L, Hct 31.5 L, MCV 84.2, MCH 28.6, MCHC 34.0, RDW Std Deviation 49.4 H, RDW Coeff of Kimberlee 16.0 H, Plt Count 57 L, MPV 12.1 H, Immature Gran % (Auto) MENTAL HEALTH COORDINATOR, Neut % (Auto) MENTAL HEALTH COORDINATOR, Lymph % (Auto) MENTAL HEALTH COORDINATOR, [place] % (Auto) MENTAL HEALTH COORDINATOR, Eos % (Auto) MENTAL HEALTH COORDINATOR, Baso % (Auto) MENTAL HEALTH COORDINATOR, Absolute Neuts (auto) 9.4 H , Absolute Lymphs (auto) 0.40 L, Total Counted 100, Neutrophils % (Manual) 86 H, Band Neutrophils % 8 H, Lymphocytes % (Manual) 4 L, Eosinophils % (Manual) 2, Nucleated RBC % 0.2, Nucleated RBCs/100 WBC 2, Diff Path Review October, Platelet Estimate MOD DEC, RBC Morphology NORM C+C 07/03/21 05:25: Sodium 133 L, Potassium 3.8, Chloride 98, Carbon Dioxide 24.0, Anion Gap 11, BUN 48 H, Creatinine 2.01 H, Estim Creat Clear Calc 28.29, Est GFR (MDRD) Af Amer 31 L, Est GFR (MDRD) Non-Af 26 L, BUN/Creatinine Ratio 23.9 H, Glucose 140 H, Calcium 7.5 L, Total Bilirubin 0.50, AST 63 H, ALT 42, Alkaline Phosphatase 183 H, Total Protein 5.6 L, Albumin 1.1 L, Globulin 4.5 H, Albumin/Globulin Ratio 0.2 L 07/03/21 05:25: Random Vancomycin 17.6 H Micro: Microbiology 06/26/21 Unknown Sputum, Induced/Lukens Gram Stain - Final 06/26/21 Unknown Sputum, Induced/Lukens Respiratory Culture - Final Meth. resistant Staph. aureus 06/22/21 13:18 Nasal Secretion SARS-CoV-2 Antigen (Rapid) - Final SARS-CoV-2 (COVID 19) Physical Exam Narrative Physical exam: General: Sedated, intubated HEENT: Atraumatic, subcutaneous emphysema of the neck and chest, right-sided dialysis catheter Oral: Moist Mucosa Neck: Supple Lungs: Diminished to auscultation Cardiovascular: HS I+II, regular, no murmurs Abdomen: Bowel Sounds Present, Soft, Non Tender Extremities: No edema Assessment & Plan Assessment/Plan (1) COVID-19: (2) Acute hypoxemic respiratory failure due to COVID-19: PLAN: 1. Acute hypoxic respiratory failure secondary to acute COVID-19 pneumonia/acute pneumomediastinum/MRSA pneumonia Oxygen requirements is slightly was about the same; PEEP of 12, FiO2 80% Patient remains intubated, sedated. Continue on dexamethasone and vancomycin with pharmacy to dose Off remdesivir 2. A. fib with RVR, rate controlled, off amiodarone drip 3. HARLEY on CKD stage IIIb, slightly improved Started on dialysis 06/30/20, day 3 of dialysis today Nephrology following 4. Elevated D-dimer, continue on Lovenox SC 5. Severe protein -calorie malnutrition, [facility] consulted, on supplements 6. DVT PPx- On Lovenox SC Charges/Coding Visit Charges Inpatient E&M: 09969 [facility] Hosp L3
--- NOTE | 2021-07-03 08:54 | PCM.RX.CS ---
Consult Pharmacy has been consulted to manage selected antiobiotic: Vancomycin Type of Consult: Follow-up Suspected Infection: Pneumonia Labs: Sodium 133 mmol/L (136-145) L 07/03/21 05:25 Potassium 3.8 mmol/L (3.5-5.1) 07/03/21 05:25 Chloride 98 mmol/L (98-107) 07/03/21 05:25 Carbon Dioxide 24.0 mmol/L (21.0-32.0) 07/03/21 05:25 Anion Gap 11 (5-15) 07/03/21 05:25 BUN 48 mg/dL (7-18) H 07/03/21 05:25 Creatinine 2.01 mg/dL (0.55-1.02) H 07/03/21 05:25 Est GFR (MDRD) Af Amer 31 mL/min (>60) L 07/03/21 05:25 Est GFR (MDRD) Non-Af 26 mL/min (>60) L 07/03/21 05:25 BUN/Creatinine Ratio 23.9 RATIO (10-20) H 07/03/21 05:25 Glucose 140 mg/dL (74-106) H 07/03/21 05:25 Random Vancomycin 17.6 ug/mL (0.0-15.0) H 07/03/21 05:25 Microbiology: Microbiology 06/26/21 Unknown Sputum, Induced/Lukens Gram Stain - Final 06/26/21 Unknown Sputum, Induced/Lukens Respiratory Culture - Final Meth. resistant Staph. aureus 06/22/21 13:18 Nasal Secretion SARS-CoV-2 Antigen (Rapid) - Final SARS-CoV-2 (COVID 19) Goal Trough: 15-20 mcg/mL Pharmacy Plan for Drug Dosing: VANCOMYCIN LEVEL RECEIVED Current Vancomycin Dose: DOSING BASED ON LEVELS- PT ON HD Number of Doses Received: 500MG X1 ON 07/02/21 Vancomycin Level: 17.6 Renal Function: ON HEMODIALYSIS- NO SET SCHEDULE AT THIS TIME Renal Function Trend: N/A Lab/Micro: SCX GROWING MRSA, SENSITIVE TO VANCOMYCIN Vancomycin Plan/Comments: PT GETTING HD TODAY. 500MG IV X1 AFTER HD COMPLETED. Pending Level: *RANDOM* LEVEL 07/04/21 WITH AM LABS (PRE-HD) Pharmacy Service will continue to monitor and adjust dosing as required.
[2021-07-03] MEDS: Propofol 10MG/Ml 1,000 MG/100 ML Bottle 4.3 MG CONT INF (11:00)
--- NOTE | 2021-07-03 11:25 | DIALYSIS ---
IUF ended early d/t pt hemodynamically unstable with low O2 sats, Dr. Alvarado updated and aware. Total fluid volume removed 871ml.
--- NOTE | 2021-07-03 11:26 | CASEMGMT ---
Social Work LATE ENTRY FOR 06/25/21 This SW and bedside nurse SONIA Morales met with pt and discussed Health care decision maker. Pt is able to state that she lives with her grandson Mikael Taylor. Pt has a son Heri who lives in [place] and a niece that lives locally. SW spoke with pt regarding all of these family members. Pt is able to state that she would want her grandson Mikael Taylor as HCPOA. Pt completed HCPOA naming her grandson and choosing not to name a secondary. Phone call to Mikael Taylor and informed and he is agreeable to act as pt HCPOA. Demographic information changed in the system. Nurse Carmen lobo and Dr. Ortega updated. LYLE Trevino
--- NOTE | 2021-07-03 11:30 | RAD_ITS ---
STUDY: X-RAY CHEST REASON FOR EXAM: Female, 76 years old. SOB TECHNIQUE: Single AP portable view of the chest. COMPARISON: 07/01/2021 FINDINGS: Endotracheal tube, nasogastric tube, right internal jugular dialysis catheter, and right upper extremity PICC all of which are unchanged. No change in the alveolar opacities in both lungs consistent with bilateral pneumonia. There is no demonstrated pleural abnormality. Normal size heart. Normal mediastinum and joseph. Normal visualized pulmonary arteries. Normal visualized aortic arch and descending thoracic aorta. Normal visualized thoracic spine. Normal visualized ribs, clavicles, and shoulders. There is no demonstrated abnormality of the visualized soft tissue structures of the upper abdomen. RAD/Chest 1 View (Portable) IMPRESSION: No change from 07/01/2021. Electronically Signed: Everton Stearns MD at 12:44 EST Tel , Service support ,
[2021-07-03 11:31] LABS: CPK Total, Creatine Kinase 61 U/L (26-192); Triglycerides 111 mg/dL
[2021-07-03] MEDS: Heparin 10,000 UNITS/10 ML Vial IV (11:31)
[2021-07-03] MEDS: CHLORHEXIDINE GLUC 2% CLOTH 1 EACH TOWELETTE TOPICAL (11:32)
[2021-07-03] MEDS: Nystatin Ointment 1 APPLIC TOPICAL (11:37)
[2021-07-03] MEDS: Chlorhexidine 15 ML PO ×2 (11:38→20:31)
[2021-07-03] MEDS: Amiodarone 200 MG Tablet 400 MG GT (11:44)
[2021-07-03] MEDS: Polyethylene Glycol 3350 17 GM PACKET PO (11:44)
[2021-07-03] MEDS: Enoxaparin 60 MG/0.6 ML Syringe SC (11:44)
[2021-07-03] MEDS: Senna/Docusate Sodium 1 Tablet 2 TABLET PO (11:45)
--- NOTE | 2021-07-03 11:50 | PN.RENAL_ITS ---
Subjective Subjective Following for acute kidney injury. The patient is not technically oliguric. She has made 495 mL of urine in the last 24 hours, but this is still marginal given her volume overload. The patient is intubated and sedated. Cannot do ROS. She has not needed to go back on IV pressor in the last 24 hours per my discussi on with RN. Objective Data Objective Data Vital Signs: Vital Signs Temp Pulse Resp BP Pulse Ox 99.9 F H 97 18 108/65 78 07/03/21 11:00 07/03/21 11:40 07/03/21 11:40 07/03/21 11:00 07/03/21 11:40 Oxygen Flow Rate (L/min) 60 Oxygen Delivery Method Mechanical Ventilator Weight: 74.1 kg Body Mass Index (BMI) 31.4 Intake & Output: Intake and Output for Last 24 Hours 07/01/21 07/02/21 07/03/21 23:59 23:59 23:59 Intake Total 2691.41 / 2692.41 2513.67 / 2526.17 656.83 / 656.83 Output Total 850 / 850 1445 / 1445 1046 / 1046 Balance 1841.41 / 1842.41 1068.67 / 1081.17 -389.17 / -389.17 Medical Nutrition Assessment Dietitian: Malnutrition Criteria Met Start: 06/25/21 11:25 Freq: Status: Active Protocol: Document 06/30/21 11:38 TATA (Rec: 06/30/21 11:38 [facility] [id number]) Nutrition Malnutrition Evidence of Malnutrition Exists Yes Malnutrition (severe): Acute Illness/Injury Evidenced By Suboptimal Energy Intake ( Severe),Weight Loss (Severe) Clinical Problem Acute Disease or Injury Related Malnutrition Etiology severe, acute malnutrition r/t inadequate energy intake d/t COVID-19 Signs/Symptoms as evidenced by unintentional ~5% wt loss x 5 days; estimated PO intake meeting < 50% of estimated energy needs > 5 days Status Active Problem Recommendation Dietitian Recommendations/Changes NPO while intubated; Rec Vital AF 1.2 at goal rate of 55mL/ hour w/100mL H2O flush every 4 hours to provide 1584 calories, 99 g protein, and 1670mL total fluid/day. Would start at 20mL/hour and increase by 15mL/hour every 8- 12 hours as tolerated until goal rate is achieved. Lab / Micro Data Result Diagrams: 07/03/21 05:25 07/03/21 05:25 Labs: Laboratory Results - last 24 hr 07/02/21 15:21: POC Glucose 126 H 07/02/21 22:08: POC Glucose 142 H 07/03/21 05:20: POC Glucose 149 H 07/03/21 05:25: WBC 10.0, RBC 3.74 L, Hgb 10.7 L, Hct 31.5 L, MCV 84.2, MCH 28.6, MCHC 34.0, RDW Std Deviation 49.4 H, RDW Coeff of Kimberlee 16.0 H, Plt Count 57 L, MPV 12.1 H, Immature Gran % (Auto) PACKAGE SEALER, Neut % (Auto) PACKAGE SEALER, Lymph % (Auto) PACKAGE SEALER, [place] % (Auto) PACKAGE SEALER, Eos % (Auto) PACKAGE SEALER, Baso % (Auto) PACKAGE SEALER, Absolute Neuts (auto) 9.4 H , Absolute Lymphs (auto) 0.40 L, Total Counted 100, Neutrophils % (Manual) 86 H, Band Neutrophils % 8 H, Lymphocytes % (Manual) 4 L, Eosinophils % (Manual) 2, Nucleated RBC % 0.2, Nucleated RBCs/100 WBC 2, Diff Path Review October, Platelet Estimate MOD DEC, RBC Morphology NORM C+C 07/03/21 05:25: Sodium 133 L, Potassium 3.8, Chloride 98, Carbon Dioxide 24.0, Anion Gap 11, BUN 48 H, Creatinine 2.01 H, Estim Creat Clear Calc 28.29, Est GFR (MDRD) Af Amer 31 L, Est GFR (MDRD) Non-Af 26 L, BUN/Creatinine Ratio 23.9 H, Glucose 140 H, Calcium 7.5 L, Total Bilirubin 0.50, AST 63 H, ALT 42, Alkaline Phosphatase 183 H, Total Protein 5.6 L, Albumin 1.1 L, Globulin 4.5 H, Albumin/Globulin Ratio 0.2 L 07/03/21 05:25: Random Vancomycin 17.6 H 07/03/21 05:25: Total Creatine Kinase 61, Triglycerides 111 Micro: Microbiology 06/26/21 Unknown Sputum, Induced/Lukens Gram Stain - Final 06/26/21 Unknown Sputum, Induced/Lukens Respiratory Culture - Final Meth. resistant Staph. aureus 06/22/21 13:18 Nasal Secretion SARS-CoV-2 Antigen (Rapid) - Final SARS-CoV-2 (COVID 19) Physical Exam Narrative General appearance: Ill-appearing woman who is on mechanical ventilator. HEENT: The patient is intubated. Neck: Supple, no JVD. Heart: Tachycardic S1, S2. Lungs: Coarse breath sound bilaterally. Abdomen: Normal bowel sounds, soft, nontender, no guarding or rebound. Extremity: No clubbing or cyanosis. There is 2+ edema of the lower extremity. Assessment & Plan Assessment/Plan (1) HARLEY (acute kidney injury): PLAN: There is no history of significant CKD. Serum creatinine was 1.02 mg/dL as recently as June 26, 2021. HARLEY is due to ischemic ATN related to severe sepsis from COVID-19 pneumonia. The patient had been intermittently on IV norepinephrine. Urine output has picked up. Although she is not technically oliguric, urine output is still marginal. I started the patient on hemodialysis on 06/30/2021. She is now on a MWF dialysis schedule. I saw the patient during isolated ultrafiltration today. Unfortunately, she will only tolerate around 1 to 1.5 L of UF because of hemodynamic instability. We will plan on dialyzing the patient for solute clearance tomorrow. We will see if we can get more fluid off with dialysis tomorrow as well. Current medications are reviewed, and they are appropriately dosed for planned IHD. (2) Metabolic acidosis: PLAN: Serum bicarbonate level is better today after the first dialysis. Serum bicarbonate level is 24 mmol/L today. Metabolic acidosis was due to HARLEY. There has been no diarrhea. Serum bicarbonate level should improve and stabilize on IHD. (3) Septic shock: PLAN: The patient had required IV norepinephrine drip intermittently. She has came off of pressor on 06/30/2021. BP has been fluctuating although she has not required pressors since 06/30/2021. Complex coordination of supportive care in ICU as per field mechanic. (4) Acute hypoxemic respiratory failure due to COVID-19: PLAN: Ventilator dependent. Treatment of COVID-19 pneumonia as per field mechanic and ID. Ventilator management as per field mechanic. Continue to ultrafilter the patient to see if we can help with ventilator weaning.
[2021-07-03] MEDS: Insulin Lispro 100 UNIT/ML INSULN.PEN SC (11:55)
[2021-07-03 13:41] LABS: Bedside Glucose 155 mg/dL (70-110)
--- NOTE | 2021-07-03 13:50 | NURSING ---
1330-patient placed in the prone position x4 assist. RT at bedside. SPO2 now 93%.
[2021-07-03] MEDS: Vancomycin IV 500 MG/100 ML BAG 100 MG IV (17:45)
[2021-07-03 18:41] LABS: Bedside Glucose 83 mg/dL (70-110)
[2021-07-03 23:26] LABS: Bedside Glucose 76 mg/dL (70-110)
[2021-07-04] VITALS (43 sets, daily range): BP systolic 45–146; BP diastolic 32–115; PULSE 77–109; RESP 18; TEMP 37.1–38.6; O2SAT 85–100
[2021-07-04] MEDS: Acetaminophen 650 MG/20 ML UDC GT ×3 (00:16→13:09)
[2021-07-04 04:49] LABS: Eosinophil# 0.05 X10^3/uL; Hematocrit 33.2 % (37-47); Hemoglobin 10.9 g/dL (12.0-15.0); Mean Corp Hgb Conc 32.8 g/dL (32-36); Mean Corpuscular Hgb 29.1 pg (27.0-32.0); Mean Corpuscular Volume 88.5 fL (81-99); Mean Platelet Vol. 12.1 fl (6.2-12.0); Monocyte# 0.22 X10^3/uL; NRBC Flagged by Analyzer 0.2 % (0-5); POSITIVE COUNT YES; POSITIVE DIFFERENTIAL YES; POSITIVE MORPHOLOGY YES; Platelet Count 59 K/mm3 (150-450); RBC Distribution Width CV 16.9 % (11.6-14.6); RBC Distribution Width SD 54.9 fl (35.1-43.9); Red Blood Count 3.75 M/mm3 (4.2-5.4); White Blood Count 11.7 K/mm3 (4.4-11.0)
[2021-07-04 04:58] LABS: Differential Indicated SCAN CRITERIA MET
[2021-07-04] MEDS: Propofol 10MG/Ml 1,000 MG/100 ML Bottle 4.3 MG CONT INF (05:00)
[2021-07-04 05:04] LABS: ALB/GLOB Ratio 0.2 RATIO (0.9-2.4); AST(SGOT) 29 U/L (15-37); Alanine Aminotransfer ALT/SGPT 38 U/L (13-56); Albumin, Serum 0.9 g/dL (3.2-5.0); Alkaline Phosphatase 117 U/L (45-117); Anion Gap 11 (5-15); BUN 53 mg/dL (7-18); BUN/Creat Ratio 20.4 RATIO (10-20); Calcium,Total 7.4 mg/dL (8.5-10.1); Chloride 98 mmol/L (98-107); EST Glomerular Filtration Rate 19 mL/min (>60); Est Glom Filt Rate - Afr Amer 23 mL/min (>60); Estimated Creatinine Clearance 21.87 ml/min; Globulin 4.6 g/dL (2.2-4.2); Glucose 70 mg/dL (74-106); Potassium 4.3 mmol/L (3.5-5.1); Protein, Total 5.5 g/dL (6.4-8.2); Sodium Level 132 mmol/L (136-145)
[2021-07-04 05:20] LABS: Scan Smear per Review Criteria MANUAL DIFF
[2021-07-04 05:25] LABS: Lymphocyte 2 % (19-41); Metamyelocyte 3 % (0-1); Monocyte 1 % (0-10); Neutrophil-Band 5 % (0-5); Neutrophil-Segmented 89 % (47-70); Total Cells Counted 100 (MANUAL DIFF)
[2021-07-04 05:26] LABS: Absolute Neutrophil Count 10.2 X10^3/uL (2.0-7.7); Neutrophil # 10.19 X10^3/uL (2.7-7.7)
[2021-07-04 05:27] LABS: Absolute Lymphocyte Count 0.23 X10^3/uL (0.83-4.51); Lymphocyte # 0.23 X10^3/ul (0.83-4.51)
[2021-07-04 05:30] LABS: Platelet Estimate MOD DEC (ADEQ); Red Cell Morphology NORM C+C NORMAL (NORM C&C)
[2021-07-04 06:25] LABS: Vancomycin, Random Level 20.3 ug/mL (0.0-15.0)
[2021-07-04] MEDS: Menthol/Lanolin/Calamine/Znox 113 GM Tube 1 APPLIC TOPICAL ×2 (06:46→13:13)
[2021-07-04 06:55] LABS: Bedside Glucose 67 mg/dL (70-110)
[2021-07-04] MEDS: Dextrose 50%-Water 25 GM/50 ML DISP.SYRIN IV (07:08)
--- NOTE | 2021-07-04 07:11 | PN.CC_ITS ---
Assessment & Plan Assessment/Plan (1) Acute hypoxemic respiratory failure due to COVID-19: (2) COVID-19: PLAN: RECOMMENDATIONS: 1. Continue patient on assist control and wean FiO2/PEEP for saturations greater than 90%. 2. Continue vancomycin with pharmacy to dose for 10 days 3. Holding Lovenox secondary to thrombocytopenia. Defer to nephrology if heparin should be avoided with dialysis 4. Continue paralyzation for another 24 hours. Proning trials as tolerated 5. Continue tube feeds once paralyzation is complete 6. Continue appropriate GI prophylaxis. 7. Dialysis per nephrology recommendations. Volume removal if possible. 8. Possibly wean PEEP if able to remove volume IMPRESSIONS: 1. Acute hypoxemic respiratory failure secondary to COVID-19/MRSA pneumonia The patient was initially admitted to the hospital on June 22 with COVID-19 pneumonia. Her hospital course has been complicated by worsening respiratory status, culminating in transfer to the ICU on June 24 to be placed on noninvasive positive pressure ventilatory support. Unfortunately, the patient failed to improve on continuous BiPAP support and required intubation on June 26. She will be continued on assist control mode mechanical ventilation. FiO2 and PEEP will be weaned for saturations greater than 90%. In the interim, plan to continue current supportive measures decadron. Although her initial CTA chest was negative for PE, follow-up D-dimer was notably elevated at 14. Therefore, the patient will be continued on therapeutic Lovenox. Patient with significant issues yesterday. Patient currently is paralyzed and proning with only marginal control. Very poor prognosis. Family was updated yesterday but wishes to be aggressive 2. Distributive shock Likely secondary to acute infectious etiology coupled with the hemodynamic impact of sedative medication use. Continue vasopressor support to maintain mean arterial pressure at or above 65 mmHg. 3. SVT/Atrial Fibrillation The patient appears to be in atrial fibrillation with a rapid ventricular rate. Patient appears to have responded to amiodarone. Clinical suspicion for development of A. fib secondary to pneumomediastinum. 4. Acute kidney injury Patient now on hemodialysis. Avoid nephrotoxic medications. No hydronephrosis noted on renal ultrasound. Unable to tolerate hemodialysis yesterday. If this persists, anticipate palliative measures given family meeting yesterday. Patient would benefit from moderate volume removal as patient continues to be positive on a daily basis. TIME: 34 minutes of critical care time, independent of procedures, was spent addressing the patient's acute hypoxemic respiratory failure secondary to COVID- 19 pneumonia, acute kidney injury, distributive shock, atrial fibrillation, r eview of all data and collaboration with the care team. Subjective Subjective Patient with significant difficulties over the last 24 hours. Patient had to be discontinued from hemodialysis early secondary to hypoxia. This progressed leading to an increase in PEEP, proning and paralyzation. Patient did relatively stable for most of the evening, but had to be placed on Levophed early this morning secondary to a need for sedation with elevated BIS. Objective Data Objective Data Vital Signs: Vital Signs Temp Pulse Resp BP Pulse Ox 37.2 C 80 18 103/78 89 07/04/21 07:00 07/04/21 07:00 07/04/21 07:00 07/04/21 07:00 07/04/21 07:00 Oxygen Flow Rate (L/min) 60 Oxygen Delivery Method Mechanical Ventilator Weight: 74.6 kg Body Mass Index (BMI) 31.4 Intake & Output: Intake and Output for Last 24 Hours 07/02/21 07/03/21 07/04/21 23:59 23:59 23:59 Intake Total 2513.67 / 2526.17 1301.17 / 1339.47 268.00 / 268.00 Output Total 1445 / 1445 1421 / 1421 45 / 45 Balance 1068.67 / 1081.17 -119.83 / -81.53 223.00 / 223.00 Medical Nutrition Assessment Dietitian: Malnutrition Criteria Met Start: 06/25/21 11:25 Freq: Status: Active Protocol: Document 06/30/21 11:38 TATA (Rec: 06/30/21 11:38 TATA [id number]) Nutrition Malnutrition Evidence of Malnutrition Exists Yes Malnutrition (severe): Acute Illness/Injury Evidenced By Suboptimal Energy Intake ( Severe),Weight Loss (Severe) Clinical Problem Acute Disease or Injury Related Malnutrition Etiology severe, acute malnutrition r/t inadequate energy intake d/t COVID-19 Signs/Symptoms as evidenced by unintentional ~5% wt loss x 5 days; estimated PO intake meeting < 50% of estimated energy needs > 5 days Status Active Problem Recommendation Dietitian Recommendations/Changes NPO while intubated; Rec Vital AF 1.2 at goal rate of 55mL/ hour w/100mL H2O flush every 4 hours to provide 1584 calories, 99 g protein, and 1670mL total fluid/day. Would start at 20mL/hour and increase by 15mL/hour every 8- 12 hours as tolerated until goal rate is achieved. Lab / Micro Data Result Diagrams: 07/04/21 04:40 07/04/21 04:40 Labs: Laboratory Results - last 24 hr 07/03/21 05:20: POC Glucose 149 H 07/03/21 05:25: Total Creatine Kinase 61, Triglycerides 111 07/03/21 11:55: POC Glucose 155 H 07/03/21 17:56: POC Glucose 83 07/03/21 23:15: POC Glucose 76 07/04/21 04:40: WBC 11.7 H, RBC 3.75 L, Hgb 10.9 L, Hct 33.2 L, MCV 88.5 D, MCH 29.1, MCHC 32.8, RDW Std Deviation 54.9 H, RDW Coeff of Kimberlee 16.9 H, Plt Count 59 L, MPV 12.1 H, Immature Gran % (Auto) EQUIPMENT SERVICE TECHNICIAN, Neut % (Auto) EQUIPMENT SERVICE TECHNICIAN, Lymph % (Auto) EQUIPMENT SERVICE TECHNICIAN, [place] % (Auto) EQUIPMENT SERVICE TECHNICIAN, Eos % (Auto) EQUIPMENT SERVICE TECHNICIAN, Baso % (Auto) EQUIPMENT SERVICE TECHNICIAN, Absolute Neuts (auto) 10.2 H, Absolute Lymphs (auto) 0.23 L, Total Counted 100, Neutrophils % (Manual) 89 H , Band Neutrophils % 5, Lymphocytes % (Manual) 2 L, Monocytes % (Manual) 1, Metamyelocytes % 3 H, Nucleated RBC % 0.2, Diff Path Review May foll, Platelet Estimate MOD DEC, RBC Morphology NORM C+C 07/04/21 04:40: Sodium 132 L, Potassium 4.3, Chloride 98, Carbon Dioxide 23.0, Anion Gap 11, BUN 53 H, Creatinine 2.60 H, Estim Creat Clear Calc 21.87, Est GFR (MDRD) Af Amer 23 L, Est GFR (MDRD) Non-Af 19 L, BUN/Creatinine Ratio 20.4 H, Glucose 70 L, Calcium 7.4 L, Total Bilirubin 0.40, AST 29, ALT 38, Alkaline Phosphatase 117, Total Protein 5.5 L, Albumin 0.9 L, Globulin 4.6 H, Albumin/Globulin Ratio 0.2 L 07/04/21 04:40: Random Vancomycin 20.3 H 07/04/21 06:41: POC Glucose 67 L Micro: Microbiology 06/26/21 Unknown Sputum, Induced/Lukens Gram Stain - Final 06/26/21 Unknown Sputum, Induced/Lukens Respiratory Culture - Final Meth. resistant Staph. aureus 06/22/21 13:18 Nasal Secretion SARS-CoV-2 Antigen (Rapid) - Final SARS-CoV-2 (COVID 19) Radiography Diagnostic Testing: Radiology Impression Chest X-Ray 07/03/21 11:30 IMPRESSION: No change from 07/01/2021. Electronically Signed: Everton Stearns MD at 12:44 EST Tel , Service support , Physical Exam Const Constitutional Narrative: Fair vent synchrony. 3+ anasarca. General Appearance: ill appearing, intubated and patient mechanically ventilated Nutritional Appearance: obese HEENT normocephalic and head/scalp atraumatic Mouth: endotracheal tube in place and OG tube in place Eyes PERRL and EOMs intact bilaterally Neck supple General: trachea midline Chest Chest Narrative: + Crepitus throughout sternum, clavicle and neck. Relatively unchanged Resp Effort and Inspection: mechanically ventilated Auscultation: diminished lung sounds; Negative for rales, rhonchi or wheezes Cardio S1 normal heart sound and S2 normal heart sound Cardio Narrative: Unchanged Rhythm: abnormal rhythm GI normal to inspection, nondistended, normoactive bowel sounds Extremity General Extremity: edema; Negative for clubbing or cyanosis Skin no rashes or lesions noted Neuro Neuro Narrative: Paralyzed Sensorium / Orientation: sedated on vent Charges/Coding Procedures Hospitalists Procedures: 25455 Critial Care 1st Hr
[2021-07-04] MEDS: Chlorhexidine 15 ML PO (08:13)
[2021-07-04] MEDS: Senna/Docusate Sodium 1 Tablet 2 TABLET PO (08:14)
[2021-07-04] MEDS: Amiodarone 200 MG Tablet 400 MG GT (08:14)
[2021-07-04] MEDS: CHLORHEXIDINE GLUC 2% CLOTH 1 EACH TOWELETTE TOPICAL (08:14)
[2021-07-04] MEDS: Polyethylene Glycol 3350 17 GM PACKET PO (08:15)
[2021-07-04] MEDS: Nystatin Ointment 1 APPLIC TOPICAL (08:15)
--- NOTE | 2021-07-04 08:43 | PHA.PHARE_ITS ---
Consult Pharmacy has been consulted to manage selected antiobiotic: Vancomycin Type of Consult: Follow-up Prior Doses of Antibiotics Received/Current Regimen: received 500mg of vanc yesterday at 17:45 after dialysis Labs: Sodium 132 mmol/L (136-145) L 07/04/21 04:40 Potassium 4.3 mmol/L (3.5-5.1) 07/04/21 04:40 Chloride 98 mmol/L (98-107) 07/04/21 04:40 Carbon Dioxide 23.0 mmol/L (21.0-32.0) 07/04/21 04:40 Anion Gap 11 (5-15) 07/04/21 04:40 BUN 53 mg/dL (7-18) H 07/04/21 04:40 Creatinine 2.60 mg/dL (0.55-1.02) H 07/04/21 04:40 Est GFR (MDRD) Af Amer 23 mL/min (>60) L 07/04/21 04:40 Est GFR (MDRD) Non-Af 19 mL/min (>60) L 07/04/21 04:40 BUN/Creatinine Ratio 20.4 RATIO (10-20) H 07/04/21 04:40 Glucose 70 mg/dL (74-106) L 07/04/21 04:40 Random Vancomycin 20.3 ug/mL (0.0-15.0) H 07/04/21 04:40 Microbiology: Microbiology 06/26/21 Unknown Sputum, Induced/Lukens Gram Stain - Final 06/26/21 Unknown Sputum, Induced/Lukens Respiratory Culture - Final Meth. resistant Staph. aureus 06/22/21 13:18 Nasal Secretion SARS-CoV-2 Antigen (Rapid) - Final SARS-CoV-2 (COVID 19) Weight used for dosin.6 kg Goal Trough: 15-20 mcg/mL Pharmacy Plan for Drug Dosing: The vanc random level drawn at 04:40 today (approx 11 hours after the dose last night) came back as 20.3. This is above 20 so will not give another dose today after dialysis per protocol. Per the special forces medical sergeant's note yesterday, it appears the patient is now on a Mo// dialysis schedule so will enter a vanc random level to be drawn Wednesday prior to dialysis. That level will be used to determine if a dose is needed on Wednesday. If it is decided that dialysis will be done over the weekend, pharmacy can then enter a pre-dialysis vanc random level to be done then. Pharmacy Service will continue to monitor and adjust dosing as required. Follow-Up Labs: Trough Vancomycin - random pre-HD Labs to be done on [date and time ordered]: 07/07/21 0600
[2021-07-04 08:56] LABS: Bedside Glucose 131 mg/dL (70-110)
[2021-07-04 09:50] LABS: Pathologist Review Reviewed
[2021-07-04 10:30] LABS: Pathologist Review Reviewed
--- NOTE | 2021-07-04 11:43 | PCM.PN.HOSP ---
Subjective Subjective Follow-up on acute hypoxic respiratory failure/acute COVID-19 pneumonia/HARLEY: Patient was seen and examined. Seen having dialysis, on increased dose of Levophed.Patient was also started on paralytics today. Objective Data Objective Data Vital Signs: Vital Signs Temp Pulse Resp BP Pulse Ox 99.2 F H 89 18 74/64 L 92 07/04/21 11:00 07/04/21 11:22 07/04/21 11:00 07/04/21 11:30 07/04/21 11:00 Oxygen Flow Rate (L/min) 60 Oxygen Delivery Method Mechanical Ventilator Weight: 74.6 kg Body Mass Index (BMI) 31.4 Intake & Output: Intake and Output for Last 24 Hours 07/02/21 07/03/21 07/04/21 23:59 23:59 23:59 Intake Total 2513.67 / 2526.17 1301.17 / 1339.47 636.13 / 636.13 Output Total 1445 / 1445 1421 / 1421 65 / 65 Balance 1068.67 / 1081.17 -119.83 / -81.53 571.13 / 571.13 Medical Nutrition Assessment Dietitian: Malnutrition Criteria Met Start: 06/25/21 11:25 Freq: Status: Active Protocol: Document 06/30/21 11:38 TATA (Rec: 06/30/21 11:38 TATA [id number]) Nutrition Malnutrition Evidence of Malnutrition Exists Yes Malnutrition (severe): Acute Illness/Injury Evidenced By Suboptimal Energy Intake ( Severe),Weight Loss (Severe) Clinical Problem Acute Disease or Injury Related Malnutrition Etiology severe, acute malnutrition r/t inadequate energy intake d/t COVID-19 Signs/Symptoms as evidenced by unintentional ~5% wt loss x 5 days; estimated PO intake meeting < 50% of estimated energy needs > 5 days Status Active Problem Recommendation Dietitian Recommendations/Changes NPO while intubated; Rec Vital AF 1.2 at goal rate of 55mL/ hour w/100mL H2O flush every 4 hours to provide 1584 calories, 99 g protein, and 1670mL total fluid/day. Would start at 20mL/hour and increase by 15mL/hour every 8- 12 hours as tolerated until goal rate is achieved. Lab / Micro Data Result Diagrams: 07/04/21 04:40 07/04/21 04:40 Labs: Laboratory Results - last 24 hr 07/03/21 05:25: Diff Path Review Reviewed 07/03/21 11:55: POC Glucose 155 H 07/03/21 17:56: POC Glucose 83 07/03/21 23:15: POC Glucose 76 07/04/21 04:40: WBC 11.7 H, RBC 3.75 L, Hgb 10.9 L, Hct 33.2 L, MCV 88.5 D, MCH 29.1, MCHC 32.8, RDW Std Deviation 54.9 H, RDW Coeff of Kimberlee 16.9 H, Plt Count 59 L, MPV 12.1 H, Immature Gran % (Auto) [employer], Neut % (Auto) [employer], Lymph % (Auto) [employer], [place] % (Auto) [employer], Eos % (Auto) [employer], Baso % (Auto) [employer], Absolute Neuts (auto) 10.2 H, Absolute Lymphs (auto) 0.23 L, Total Counted 100, Neutrophils % (Manual) 89 H, Band Neutrophils % 5, Lymphocytes % (Manual) 2 L, Monocytes % (Manual) 1, Metamyelocytes % 3 H, Nucleated RBC % 0.2, Diff Path Review Reviewed, Platelet Estimate MOD DEC, RBC Morphology NORM C+C 07/04/21 04:40: Sodium 132 L, Potassium 4.3, Chloride 98, Carbon Dioxide 23.0, Anion Gap 11, BUN 53 H, Creatinine 2.60 H, Estim Creat Clear Calc 21.87, Est GFR (MDRD) Af Amer 23 L, Est GFR (MDRD) Non-Af 19 L, BUN/Creatinine Ratio 20.4 H, Glucose 70 L, Calcium 7.4 L, Total Bilirubin 0.40, AST 29, ALT 38, Alkaline Phosphatase 117, Total Protein 5.5 L, Albumin 0.9 L, Globulin 4.6 H, Albumin/Globulin Ratio 0.2 L 07/04/21 04:40: Random Vancomycin 20.3 H 07/04/21 06:41: POC Glucose 67 L 07/04/21 08:11: POC Glucose 131 H Micro: Microbiology 06/26/21 Unknown Sputum, Induced/Lukens Gram Stain - Final 06/26/21 Unknown Sputum, Induced/Lukens Respiratory Culture - Final Meth. resistant Staph. aureus 06/22/21 13:18 Nasal Secretion SARS-CoV-2 Antigen (Rapid) - Final SARS-CoV-2 (COVID 19) Radiography Diagnostic Testing: Radiology Impression Chest X-Ray 07/03/21 11:30 IMPRESSION: No change from 07/01/2021. Electronically Signed: Everton Stearns MD at 12:44 EST Tel , Service support , Physical Exam Narrative Physical exam: General: Sedated, intubated HEENT: Atraumatic, subcutaneous emphysema of the neck and chest, right-sided dialysis catheter Oral: Moist Mucosa Neck: Supple Lungs: Diminished to auscultation Cardiovascular: HS I+II, regular, no murmurs Abdomen: Bowel Sounds Present, Soft, Non Tender Extremities: No edema Assessment & Plan Assessment/Plan (1) COVID-19: (2) Acute hypoxemic respiratory failure due to COVID-19: PLAN: 1. Acute hypoxic respiratory failure secondary to acute COVID-19 pneumonia/acute pneumomediastinum/MRSA pneumonia Oxygen requirements is worse Patient remains intubated, sedated. Completed dexamethasone, off vancomycin and remdesivir 2. A. fib with RVR, rate controlled, off amiodarone drip 3. HARLEY on CKD stage IIIb, slightly improved Started on dialysis 06/30/20, day 4 of dialysis today Nephrology following 4. Elevated D-dimer, continue on Lovenox SC 5. Severe protein -calorie malnutrition, spray stainer consulted, on supplements 6. DVT PPx- On Lovenox SC Charges/Coding Visit Charges Inpatient E&M: 10907 Subs Hosp L2
--- NOTE | 2021-07-04 12:40 | PCM.PN.ID ---
Physical Exam Narrative On vent, pressor, paralytic, no fever Const no apparent distress Resp Effort and Inspection: mechanically ventilated Cardio regular rate and regular rhythm GI soft to palpation, non-tender and non-distended Skin no rashes or lesions noted ID ID: Route of nutrition/ use of supplements: [] Nutritional Intake: [] IV Site: [] Torres Catheter: [] Assessment & Plan Assessment/Plan (1) Acute hypoxemic respiratory failure due to COVID-19: PLAN: Cont vanc. On vent, pressor, paralytic, HD as tolerated. No fever. 100% fiO2. will follow
[2021-07-04 13:45] LABS: Allen Test Positive; Base Excess -9 mmol/L (-2 to +2); Bicarbonate 20.4 mmol/L (22-26); Blood Gas Specimen Type ART; FI02 100; Mode AC; O2 Delivery Device Adult Vent; PEEP 16; PO2 57 mmHG (75-100); RR 18; SITE R Radial; SO2 76 % (95-99); Total Carbon Dioxide 22 mmol/L; Vt 400; pCO2 66.3 mmHg (35-45)
--- NOTE | 2021-07-04 14:17 | PCM.PN.REN ---
Subjective Subjective On vent. BP low and pressors increased Objective Data Objective Data Vital Signs: Vital Signs Temp Pulse Resp BP Pulse Ox 101.5 F H 106 H 18 137/81 H 93 07/04/21 14:00 07/04/21 14:00 07/04/21 14:00 07/04/21 14:00 07/04/21 14:00 Oxygen Flow Rate (L/min) 60 Oxygen Delivery Method Mechanical Ventilator Weight: 74.6 kg Body Mass Index (BMI) 31.4 Intake & Output: Intake and Output for Last 24 Hours 07/02/21 07/03/21 07/04/21 23:59 23:59 23:59 Intake Total 2513.67 / 2526.17 1301.17 / 1339.47 774.07 / 774.07 Output Total 1445 / 1445 1421 / 1421 65 / 65 Balance 1068.67 / 1081.17 -119.83 / -81.53 709.07 / 709.07 Medical Nutrition Assessment Dietitian: Malnutrition Criteria Met Start: 06/25/21 11:25 Freq: Status: Active Protocol: Document 06/30/21 11:38 SLA (Rec: 06/30/21 11:38 SLA [id number]) Nutrition Malnutrition Evidence of Malnutrition Exists Yes Malnutrition (severe): Acute Illness/Injury Evidenced By Suboptimal Energy Intake ( Severe),Weight Loss (Severe) Clinical Problem Acute Disease or Injury Related Malnutrition Etiology severe, acute malnutrition r/t inadequate energy intake d/t COVID-19 Signs/Symptoms as evidenced by unintentional ~5% wt loss x 5 days; estimated PO intake meeting < 50% of estimated energy needs > 5 days Status Active Problem Recommendation Dietitian Recommendations/Changes NPO while intubated; Rec Vital AF 1.2 at goal rate of 55mL/ hour w/100mL H2O flush every 4 hours to provide 1584 calories, 99 g protein, and 1670mL total fluid/day. Would start at 20mL/hour and increase by 15mL/hour every 8- 12 hours as tolerated until goal rate is achieved. Lab / Micro Data Result Diagrams: 07/04/21 04:40 07/04/21 04:40 Labs: Laboratory Results - last 24 hr 07/03/21 05:25: Diff Path Review Reviewed 07/03/21 17:56: POC Glucose 83 07/03/21 23:15: POC Glucose 76 07/04/21 04:40: WBC 11.7 H, RBC 3.75 L, Hgb 10.9 L, Hct 33.2 L, MCV 88.5 D, MCH 29.1, MCHC 32.8, RDW Std Deviation 54.9 H, RDW Coeff of Kimberlee 16.9 H, Plt Count 59 L, MPV 12.1 H, Immature Gran % (Auto) [employer]ATE[employer]IST, Neut % (Auto) [employer], Lymph % (Auto) [employer] STRATEGIST, [place] % (Auto) [employer]IDENT [employer]ITAL STRATEGIST, Eos % (Auto) [employer] STRATEGIST, Baso % (Auto) [employer] STRATEGIST, Absolute Neuts (auto) 10.2 H, Absolute Lymphs (auto) 0.23 L, Total Counted 100, Neutrophils % (Manual) 89 H, Band Neutrophils % 5, Lymphocytes % (Manual) 2 L, Monocytes % (Manual) 1, Metamyelocytes % 3 H, Nucleated RBC % 0.2, Diff Path Review Reviewed, Platelet Estimate MOD DEC, RBC Morphology NORM C+C 07/04/21 04:40: Sodium 132 L, Potassium 4.3, Chloride 98, Carbon Dioxide 23.0, Anion Gap 11, BUN 53 H, Creatinine 2.60 H, Estim Creat Clear Calc 21.87, Est GFR (MDRD) Af Amer 23 L, Est GFR (MDRD) Non-Af 19 L, BUN/Creatinine Ratio 20.4 H, Glucose 70 L, Calcium 7.4 L, Total Bilirubin 0.40, AST 29, ALT 38, Alkaline Phosphatase 117, Total Protein 5.5 L, Albumin 0.9 L, Globulin 4.6 H, Albumin/Globulin Ratio 0.2 L 07/04/21 04:40: Random Vancomycin 20.3 H 07/04/21 06:41: POC Glucose 67 L 07/04/21 08:11: POC Glucose 131 H Micro: Microbiology 06/26/21 Unknown Sputum, Induced/Lukens Gram Stain - Final 06/26/21 Unknown Sputum, Induced/Lukens Respiratory Culture - Final Meth. resistant Staph. aureus 06/22/21 13:18 Nasal Secretion SARS-CoV-2 Antigen (Rapid) - Final SARS-CoV-2 (COVID 19) ABG Data ABG results: ABG 07/04/21 13:37 Specimen Type ART Sample Site R Radial pH 7.10 L* Bicarbonate Actual 20.4 L Total CO2 22 Base Excess -9 L O2 Saturation 76 L O2 % 100 ABG pCO2 66.3 H ABG pO2 57 L Bernardino Test Positive Respiration Rate 18 O2 Delivery Device Adult Vent Vent Mode AC Tidal Volume 400 POC PEEP 16 Crit Call To/Read Back Yes Blood Gas Notified Whom Alexandro Physical Exam Narrative General appearance: Ill-appearing woman who is on mechanical ventilator. HEENT: The patient is intubated. Heart: Tachycardic S1, S2. Lungs: Coarse breath sound bilaterally. Abdomen: Normal bowel sounds, soft, nontender, no guarding or rebound. Extremity: There is 2+ edema of the lower extremity. Assessment & Plan Assessment/Plan (1) HARLEY (acute kidney injury): PLAN: There is no history of significant CKD. Serum creatinine was 1.02 mg/dL as recently as June 26, 2021. HARLEY is due to ischemic ATN related to severe sepsis from COVID-19 pneumonia. The patient had been intermittently on IV norepinephrine. Urine output 65ml today. Patient started hemodialysis on 06/30/2021 (peak SCr 3.92, BUN 103). She is now on a MWF dialysis schedule. Patient became significantly hypotensive today, norepinephrine increased to max dose. Bps have improved with increase in pressor therefore will attempt HD today over 3.5 hrs. Ideally would like UF at least 2L but this will be dependent upon Bps. I contacted Mikael MONTERO and updated him on the above. He is wanting to continue with HD today and attempting fluid removal if able. I updated him at this time unclear if dialysis will be permanent and will take HD/UF decision day by day. Possibly plan for ultrafiltration tomorrow, depending upon hemodynamics/BP Current medications are reviewed, and they are appropriately dosed for planned IHD. (2) Metabolic acidosis: PLAN: Serum bicarbonate level is better today after the first dialysis. Serum bicarbonate level is 24 mmol/L today. Metabolic acidosis was due to HARLEY. There has been no diarrhea. Serum bicarbonate level should improve and stabilize on IHD. (3) Septic shock: PLAN: The patient back on max dose IV norepinephrine drip intermittently. Complex coordination of supportive care in ICU as per brim stretching machine operator. (4) Acute hypoxemic respiratory failure due to COVID-19: PLAN: Ventilator dependent. Treatment of COVID-19 pneumonia as per brim stretching machine operator and ID. Ventilator management as per brim stretching machine operator. Continue to ultrafilter the patient to see if we can help with ventilator weaning.
[2021-07-04] MEDS: Atropine Sulfate 1 MG/10 ML Syringe IV (15:55)
--- NOTE | 2021-07-04 16:17 | EXP.PCM_ITS ---
Preliminary Cause of Preliminary Cause of Preliminary Cause of : Acute hypoxic respiratory failure secondary to acute COVID-19 pneumonia/MRSA pneumonia Septic shock Acute kidney injury Date of Admission: 06/22/21 Date of : 07/04/21 Principle Diagnosis Acute hypoxic respiratory failure secondary to acute COVID-19 pneumonia/MRSA pneumonia/pneumomediastinum Septic shock SVT/A. fib with RVR Acute kidney injury Problem List: Active and Suspected Problems (Updated 06/30/21 @ 12:[address] Ramila Baum MD) Septic shock (Acute) Metabolic acidosis (Acute) HARLEY (acute kidney injury) (Acute) COVID-19 (Acute) Acute hypoxemic respiratory failure due to COVID-19 (Acute) Hospital Course 76-year-old female with past medical history of hypertension who comes in with confusion. Patient was found by her niece to be confused and covered in feces. Patient had admitted to vomiting and diarrhea. She stated that she had a home Covid test that was positive. She complains of progressive shortness of breath and thinks she may have aspirated. She is unvaccinated against COVID-19 infection. Patient's CODE STATUS was full code from admission. Patient was saturating in the 80s and improved on 2 L of oxygen. A chest x-ray shows a left lower lobe infiltrate. CTA of the chest was unremarkable. Her chest x-ray showed left lower lobe infiltrate. Patient was admitted to the [facility] floor. Her oxygen requirements worsened. Patient was managed on dexamethasone and remdesivir. She deteriorated quickly and was put on BiPAP. She was moved to ICU. She continued to worsen, she was intubated on 06/26/21. Infectious disease were consulted on patient. She was maintained on dexamethasone, remdesivir. Patient went into septic shock. Sputum cultures grew MRSA. She was started on IV vancomycin. Patient's renal function worsened. Nephrology was consulted. She was started on dialysis on 06/30/21. During the course of this hospital stay, patient developed A. fib with RVR as well as SVT. He was maintained on amiodarone. She also did require use of IV pressors for septic shock. Patient generally continued to deteriorate, she developed a pneumomediastinum. Her follow-up D-dimer was elevated at 14 and she was on therapeutic Lovenox she was unable to tolerate dialysis on the third day. Her blood pressures were lower after dialysis. She had maxed out on Levophed 30 mcg/min. Patient was going to be started on vasopressin. Patient became bradycardic, 1 mg atropine given and then went into asystole. Time of was 1600 Time of 1600 Visit Charges Inpatient E&M: 83152 Disch Hosp
--- NOTE | 2021-07-04 16:19 | NURSING ---
1545-pt's BP low 70/50, maxed on levo 30mcg/min. Dr Mc called per Kiley SCOTT and order received for vasopressin. Pt then noted to mirella down into the 30's. Faint carotid pulse palpated. Atropine 1mg given. Pt went asystole at 1600. Dr Mc, Dr Ferris and family notified.
[2021-07-04 17:30] LABS: Bedside Glucose 88 mg/dL (70-110)
== END 2021-07-04 16:00 | DRG 207 ==
LOC: ED 14:57 → MS3 16:04 → ICU 06-25 13:55
PROVIDERS: Internal Medicine; Internal Medicine Critical Care Medicine; Internal Medicine Nephrology; Emergency Provider Emergency Medicine; PCP Family Medicine; Visit Provider Internal Medicine
DX: U07.1 COVID-19 (principal); R65.21 Severe sepsis with septic shock; N17.0 Acute kidney failure with tubular necrosis; A41.02 Sepsis due to Methicillin resistant Staphylococcus aureus; J12.82 Pneumonia due to coronavirus disease 2019; J15.212 Pneumonia due to Methicillin resistant Staphylococcus aureus; G93.41 Metabolic encephalopathy; E43 Unspecified severe protein-calorie malnutrition; J96.01 Acute respiratory failure with hypoxia; I47.1 Supraventricular tachycardia; E87.0 Hyperosmolality and hypernatremia; E87.2 Acidosis; J98.2 Interstitial emphysema; I48.91 Unspecified atrial fibrillation; I46.9 Cardiac arrest, cause unspecified; N18.32 Chronic kidney disease, stage 3b; E87.70 Fluid overload, unspecified; I12.9 Hypertensive chronic kidney disease with stage 1 through stage 4 chronic kidney disease, or unspecified chronic kidney disease; R73.9 Hyperglycemia, unspecified; Z68.31 Body mass index [BMI] 31.0-31.9, adult; Z66 Do not resuscitate
CPT/HCPCS: 31500; 31720; 36415; 36569; 36600; 71045; 71275; 76770; 80048; 80053; 80202; 81001; 82550; 82570; 82803; 82962; 83605; 83690; 83735; 84100; 84300; 84478; 84484; 85025; 85027; 85379; 85610; 85730; 87070; 87077; 87186; 87205; 87340; 87426; 90937; 93005; 94002; 94003; 94660; 94762; 97110; 97162; 97166; 97530; 97802; 97803; 99251; 99285; J7030; J7040; J7050; Q9967; A4216; C1752; G0257; G0463; J0248; J0295; J0330; J3010